=== PATIENT | female | born 1935 | race Caucasian/White ===

== ENCOUNTER 2017-05-20 18:02 | Emergency (ER) | payer MEDICARE, OTHER ==
[2015-08-04 14:11] VITALS: BMI 20.3
[~2017-05-20 18:02] MED LIST: HYDROCODON-ACE1 EAC7 PO; KEFLEX500 MG PO; LEVAQUIN500 MG PO; MEGACE40 MG PO; MULTI-DAY VITAM1 TAB PO; NORVASC2.5 MG PO; PROZAC10 MG PO; REGLAN INJ10 MG/2 ML IV; VITAMIN B-1000 MCG/M IM; VITAMIN B-121000 MCG PO; XARELTO15 MG PO; XARELTO20 MG PO
== END 2017-05-20 20:58 | disposition home or self-care (01) ==
LOC: D.ER 18:02
DX: M25.061 Hemarthrosis, right knee (principal); W19.XXXA Unspecified fall, initial encounter; Y93.9 Activity, unspecified; Y92.029 Unspecified place in mobile home as the place of occurrence of the external cause; Z85.3 Personal history of malignant neoplasm of breast; I10 Essential (primary) hypertension

== ENCOUNTER → 2017-06-14 08:14 | Outpatient (CLI) | payer MEDICARE, OTHER ==
[2015-08-04 14:11] VITALS: BMI 20.3
== END | disposition home or self-care (01) ==
LOC: D.RT 08:14
DX: R06.00 Dyspnea, unspecified (principal)

== ENCOUNTER → 2017-09-27 12:09 | Outpatient (CLI) | payer MEDICARE, OTHER ==
[2015-08-04 14:11] VITALS: BMI 20.3
--- NOTE | ~2017-09-27 | EC ---
PATIENT:JONATHAN EMANUEL DATE OF SERVICE: 09/27/17 SEX: F MEDICAL RECORD: [id number] DATE OF : 39 LOCATION:D.[facility] AGE OF PATIENT: 82 ADMISSION DATE: 09/27/17 REFERRING PHYSICIAN: INTERPRETING PHYSICIAN: DANIELLE DELATORRE MD ECHOCARDIOGRAM REPORT ECHO CHARGES 4 ECHO COMPLETE Date: 09/27 CLINICAL DIAGNOSIS: MTZ/CHF/MALIGNANT NEOPLASM OF BREAST ECHOCARDIOGRAPHIC MEASUREMENTS (adult normal given) AC root (d.<3.7cm) 2.8 cm LV Septum d (<1.2 cm> 1.0 cm Valve Excursion 1.1 cm LV Septum (systole) 1.4 cm Left Atria (s.<4.0cm> 3.2 cm LVPW d(<1.2cm) 1.1 cm RV (d.<2.3cm) 1.7 cm LVPW (sytole) 1.6 cm LV diastole(<5.6CM) 4.7 cm MV E-F(>70mm/sec) cm LV systole 2.7 cm LVOT Diameter 1.6 cm MV exc.(>10mm) cm Est.ejection fraction (50-75%) % DOPPLER: LVIT cm/sec A 138 cm/sec E 105 cm/sec LA cm/sec RVSP 33.0 mmHg LVOT 95.0 cm/sec AOP1/2T m/s Asc. Ao 132 cm/sec RVOT 70.0 cm/sec RA cm/sec PA 98.0 cm/sec AV Gradient Peak 7.0 mmHg AV Mean 3.3 mmHg AV Area 1.4 cm MV Gradient Peak 7.6 mmHg MV Mean 2.1 mmHg MV Area cm COMMENTS: Executive Sales Manager: Eli ALARCONOE Business Technology Analyst: Karo Delatorre TAPE# PACS Pericardial Effusion N DATE OF SERVICE: 09/27/2017 PROCEDURE: Transthoracic echocardiogram. FINDINGS: 1. Left ventricle shows evidence of left ventricular hypertrophy. Inflow characteristics consistent with diastolic dysfunction and ejection fraction of 55% to 60%. No evidence of regional wall motion abnormalities. 2. The mitral valve is thickened. No obvious structural abnormalities; however, the patient does have eccentric moderate mitral regurgitation. ECHOCARDIOGRAM REPORT [id number] JONATHAN EMANUEL 3. The left atrium is mildly dilated at 4.1 cm. 4. The right ventricle is normal. 5. The aortic valve shows sclerosis without any evidence of stenosis. 6. The tricuspid valve has mild tricuspid regurgitation. RVSP 33 mmHg. 7. The right ventricle is normal size, function. 8. The right atrium is normal size and function. IMPRESSION: Overall, the patient has evidence of hypertensive heart disease with mild pulmonary hypertension and diastolic dysfunction with preserved LV systolic function with ejection fraction of 55% to 60%. TRANSINT:[id number] Voice Confirmation ID: [id number] DOCUMENT ID: [id number] 10/03/2017 Edited for date of service, dm. DANIELLE DELATORRE MD at 1426 CC: [id number] DICTATION DATE: 09/28/17 0758 PSYCH RN: 09/28/17 0941 [facility] 09/27/[address] [address]
== END | disposition home or self-care (01) ==
LOC: D.ECHO 12:09
DX: C50.419 Malignant neoplasm of upper-outer quadrant of unspecified female breast (principal); I50.9 Heart failure, unspecified

== ENCOUNTER 2017-12-12 21:44 | Inpatient (IN) | payer MEDICARE, OTHER ==
[~2017-12-12] VITALS: Ht 160 cm; Wt 54.4 kg
--- NOTE | ~2017-12-12 | OP ---
PATIENT NAME: JONATHAN EMANUEL MEDICAL RECORD: [id number] :39 LOCATION:D[facility] ADMISSION DATE:12/13/17 SURGEON: SANDY GA MD DATE OF OPERATION: 12/13/2017 PREOPERATIVE DIAGNOSIS: Bimalleolar ankle fracture of the left ankle. POSTOPERATIVE DIAGNOSIS: Bimalleolar ankle fracture of the left ankle. PROCEDURE: Open reduction and internal fixation of left bimalleolar ankle fracture. SURGEON: Sandy Ga MD ANESTHESIA: General. INTRAOPERATIVE COMPLICATIONS: None. SUMMARY OF PATHOLOGIC FINDINGS: Essentially none. The patient had a bimalleolar ankle fracture with some comminution of the fibula as seen on preoperative radiographs. IMPLANTS USED: Planet [employer] VariAx fibular plate. OPERATIVE SUMMARY IN DETAIL: After obtaining the appropriate preoperative orthopedic surgery consent as well as anesthetic consultation, evaluation and clearance, the patient was taken to the operating room and placed on the operating table in supine position. After general laryngeal mask airway was administered, tourniquet was placed on the proximal aspect of left lower extremity. Left lower extremity was prepped and draped in routine sterile fashion. The leg was elevated and exsanguinated, tourniquet inflated to 350 mmHg. Incision was made over the fibula under fluoroscopic guidance, taken down the level of the fracture, which was cleaned of all fracture hematoma. It was reduced using fracture reduction clamps, provisional 0.062 K-wire was put into place, all in place. The plate was then put on the lateral aspect of the fibula. A combination of compression and locking screws were utilized for serial drill to stabilize the lateral fibula fracture. Having completed this, attention was turned to the medial side. A small incision was made over the medial malleolus. This was taken down so that all interposed periosteum and hematoma could be evacuated. It was then reduced with a knxxp-an-rjcem reduction clamp. Guidewires for the 4.0 Fixos compression screws were then placed under fluoroscopic guidance and then two 46 screws were then placed for good compression of the medial malleolus. Final radiographs were taken and submitted for radiologist review. Wounds were copiously irrigated and closed with 2-0 Vicryl followed by skin radha. Sterile dressings were applied. Tourniquet was deflated. Posterior L&U splint was applied. The patient was awakened and taken to recovery room in stable condition. All final needle and sponge counts were correct. TRANSINT:[id number] Voice Confirmation ID: [id number] DOCUMENT ID: [id number] OPERATIVE REPORT [id number] JONATHAN EMANUEL MD, SANDY ROMAN at 1331 CC: [id number] DICTATION DATE: 12/14/1735 GUARD MANAGER: 12/14/17 1042 [place] [address]
[2017-12-12 23:13] LABS: APTT 22.2 SECONDS (22.8-39.4); PROTIME 12.8 SECONDS (11.6-15.0)
[2017-12-12 23:14] LABS: ALBUMIN 3.7 g/dL (3.4-5.0); ANION GAP 20.2 mmol/L (8-16); BILIRUBIN - TOTAL 0.36 mg/dL (0.2-1.3); CALCIUM 9.3 mg/dL (8.5-10.1); CARBON DIOXIDE 19.1 mmol/L (21.0-32.0); POTASSIUM - SERUM 3.3 mmol/L (3.5-5.1); PROTEIN - SERUM 7.3 g/dL (6.4-8.2)
[2017-12-13] VITALS (14 sets, daily range): BP systolic 104–143; BP diastolic 50–72; Ht 160 cm; Wt 54.4 kg
[2017-12-13 00:09] LABS: HEMATOCRIT 35.1 % (36.0-48.0); HEMOGLOBIN 11.9 g/dL (12-16); LYMPHOCYTES 13.1 % (15-50); MCH 30.1 pg (26.0-34.0); MCHC 33.9 g/dL (31.0-37.0); MCV 88.9 fL (80.0-100.0); MEAN PLATELET VOLUME 9.3 fL (7.4-10.4); NEUTROPHILS 81.4 % (40-80); PLATELET COUNT 276 10x3/uL (130-400); RBC 3.95 10x6/uL (4.00-5.40); RDW 13.2 % (11.5-14.5); WBC 11.8 10x3/uL (4.8-10.8)
[2017-12-13 10:48] LABS: BASOPHILS 0.5 % (0-2); EOSINOPHILS 0.2 % (0-7); HEMATOCRIT 33.6 % (36.0-48.0); HEMOGLOBIN 11.1 g/dL (12-16); IMMATURE GRANULOCYTES 0.1 % (0-5); LYMPHOCYTES 19.5 % (15-50); MCH 30.2 pg (26.0-34.0); MEAN PLATELET VOLUME 9.5 fL (7.4-10.4); MONOCYTES 8.8 % (2-11); NEUTROPHILS 70.9 % (40-80); PLATELET COUNT 243 10x3/uL (130-400); RBC 3.67 10x6/uL (4.00-5.40); RDW 14.1 % (11.5-14.5); WBC 8.9 10x3/uL (4.8-10.8)
[2017-12-13 10:59] LABS: MCV 91.6 fL (80.0-100.0)
[2017-12-14 04:53] LABS: BASOPHILS 0.1 % (0-2); EOSINOPHILS 0 % (0-7); HEMOGLOBIN 11.2 g/dL (12-16); IMMATURE GRANULOCYTES 0.1 % (0-5); LYMPHOCYTES 20.2 % (15-50); MCH 31.1 pg (26.0-34.0); MCHC 33.9 g/dL (31.0-37.0); MCV 91.7 fL (80.0-100.0); MEAN PLATELET VOLUME 9.6 fL (7.4-10.4); MONOCYTES 9.8 % (2-11); NEUTROPHILS 69.8 % (40-80); PLATELET COUNT 232 10x3/uL (130-400); RDW 14.2 % (11.5-14.5)
[2017-12-14 04:55] VITALS: BP 158/63
[2017-12-14 05:08] LABS: WBC 11.2 10x3/uL (4.8-10.8)
[2017-12-14 05:17] LABS: ALBUMIN 3.2 g/dL (3.4-5.0); ANION GAP 18.4 mmol/L (8-16); BILIRUBIN - TOTAL 0.6 mg/dL (0.2-1.3); CALCIUM 8.7 mg/dL (8.5-10.1); CARBON DIOXIDE 19.2 mmol/L (21.0-32.0); POTASSIUM - SERUM 3.6 mmol/L (3.5-5.1); PROTEIN - SERUM 6.7 g/dL (6.4-8.2)
[2017-12-14 07:58] VITALS: BP 137/66
[2017-12-14 12:21] VITALS: BP 139/63
[2017-12-14 15:55] VITALS: BP 143/59
[2017-12-14 20:00] VITALS: BP 146/72
[2017-12-15] VITALS (7 sets, daily range): BP systolic 114–144; BP diastolic 41–92
[2017-12-15 04:59] LABS: BASOPHILS 0.2 % (0-2); EOSINOPHILS 0.9 % (0-7); HEMATOCRIT 32.3 % (36.0-48.0); HEMOGLOBIN 10.5 g/dL (12-16); IMMATURE GRANULOCYTES 0.1 % (0-5); LYMPHOCYTES 16.8 % (15-50); MCH 29.7 pg (26.0-34.0); MCHC 32.5 g/dL (31.0-37.0); MCV 91.5 fL (80.0-100.0); MEAN PLATELET VOLUME 9.5 fL (7.4-10.4); MONOCYTES 9.4 % (2-11); NEUTROPHILS 72.6 % (40-80); PLATELET COUNT 215 10x3/uL (130-400); RBC 3.53 10x6/uL (4.00-5.40); RDW 14.1 % (11.5-14.5); WBC 8.6 10x3/uL (4.8-10.8)
[2017-12-15 05:33] LABS: ANION GAP 14.4 mmol/L (8-16); BILIRUBIN - TOTAL 0.4 mg/dL (0.2-1.3); CALCIUM 8.6 mg/dL (8.5-10.1); CREATININE - SERUM 0.8 mg/dL (0.6-1.3); POTASSIUM - SERUM 3.4 mmol/L (3.5-5.1); PROTEIN - SERUM 6.6 g/dL (6.4-8.2)
[2017-12-16 04:07] VITALS: BP 125/53
[2017-12-16 05:18] LABS: BASOPHILS 0.1 % (0-2); EOSINOPHILS 2.1 % (0-7); HEMATOCRIT 31.7 % (36.0-48.0); HEMOGLOBIN 10.6 g/dL (12-16); IMMATURE GRANULOCYTES 0.1 % (0-5); LYMPHOCYTES 24.6 % (15-50); MCH 30.1 pg (26.0-34.0); MCHC 33.4 g/dL (31.0-37.0); MCV 90.1 fL (80.0-100.0); MEAN PLATELET VOLUME 9.6 fL (7.4-10.4); MONOCYTES 7.9 % (2-11); NEUTROPHILS 65.2 % (40-80); PLATELET COUNT 234 10x3/uL (130-400); RBC 3.52 10x6/uL (4.00-5.40); RDW 13.8 % (11.5-14.5); WBC 7.6 10x3/uL (4.8-10.8)
[2017-12-16 05:32] LABS: ALBUMIN 2.9 g/dL (3.4-5.0); ANION GAP 16.1 mmol/L (8-16); BILIRUBIN - TOTAL 0.35 mg/dL (0.2-1.3); CALCIUM 9.2 mg/dL (8.5-10.1); CARBON DIOXIDE 22.4 mmol/L (21.0-32.0); CREATININE - SERUM 0.9 mg/dL (0.6-1.3); POTASSIUM - SERUM 3.5 mmol/L (3.5-5.1); PROTEIN - SERUM 6.6 g/dL (6.4-8.2)
[2017-12-16 08:07] VITALS: BP 122/55
[2017-12-16] MEDS ORDERED: HYDROCODONE-APA1 TAB PO (08:55)
== END 2017-12-16 16:04 | DRG 493 ==
LOC: D.ER 21:44 → D.MS 12-13 00:03
PROVIDERS: Emergency Medicine; Orthopaedic Surgery
PROC: 0QSJ0ZZ Reposition Right Fibula, Open Approach (ICD-10-PCS; 2017-12-13)
PROC: 0QSG0ZZ Reposition Right Tibia, Open Approach (ICD-10-PCS; principal; 2017-12-13 12:00)
DX: S82.841A Displaced bimalleolar fracture of right lower leg, initial encounter for closed fracture (principal); N39.0 Urinary tract infection, site not specified; W01.10XA Fall on same level from slipping, tripping and stumbling with subsequent striking against unspecified object, initial encounter; D64.81 Anemia due to antineoplastic chemotherapy; I10 Essential (primary) hypertension; Z86.711 Personal history of pulmonary embolism; J44.9 Chronic obstructive pulmonary disease, unspecified; C50.919 Malignant neoplasm of unspecified site of unspecified female breast

== ENCOUNTER 2018-04-27 14:06 | Emergency (ER) | payer MEDICARE, OTHER ==
[~2018-04-27] VITALS: Ht 160 cm; Wt 53.6 kg
[~2018-04-27 14:06] MED LIST changes: +HYDROCODONE-APA1 TAB PO
[2018-04-27 14:09] VITALS: BP 186/72; Ht 160 cm; Wt 53.6 kg
[2018-04-27 15:13] LABS: BASOPHILS 0.4 % (0-2); EOSINOPHILS 0.6 % (0-7); HEMATOCRIT 38.6 % (36.0-48.0); IMMATURE GRANULOCYTES 0.2 % (0-5); LYMPHOCYTES 23.9 % (15-50); MCH 30.6 pg (26.0-34.0); MCHC 33.7 g/dL (31.0-37.0); MCV 90.8 fL (80.0-100.0); MONOCYTES 5.9 % (2-11); PLATELET COUNT 276 10x3/uL (130-400); RBC 4.25 10x6/uL (4.00-5.40); RDW 13.9 % (11.5-14.5)
[2018-04-27 15:20] LABS: ALBUMIN 3.8 g/dL (3.4-5.0); ANION GAP 24.6 mmol/L (8-16); BILIRUBIN - TOTAL 0.84 mg/dL (0.2-1.3); CALCIUM 9.5 mg/dL (8.5-10.1); CARBON DIOXIDE 14.9 mmol/L (21.0-32.0); CREATININE - SERUM 1.1 mg/dL (0.6-1.3); POTASSIUM - SERUM 3.5 mmol/L (3.5-5.1); PROTEIN - SERUM 7.6 g/dL (6.4-8.2)
[2018-04-27 15:23] LABS: TROPONIN-I 0.022 ng/mL (0.000-0.060)
== END 2018-04-27 16:45 ==
LOC: D.ER 14:06
PROVIDERS: Family Medicine
DX: R06.02 Shortness of breath (principal); F41.9 Anxiety disorder, unspecified; Z85.3 Personal history of malignant neoplasm of breast; J44.9 Chronic obstructive pulmonary disease, unspecified; Z86.711 Personal history of pulmonary embolism; I10 Essential (primary) hypertension

== ENCOUNTER 2018-06-01 10:29 | Emergency (ER) | payer MEDICARE, OTHER ==
[~2018-06-01] VITALS: Ht 160 cm; Wt 45.5 kg
[2018-06-01 10:31] VITALS: Ht 160 cm; Wt 45.5 kg
[2018-06-01 11:30] VITALS: BP 162/70
== END 2018-06-01 18:44 | disposition home or self-care (01) ==
LOC: D.ER 10:29
DX: M54.6 Pain in thoracic spine (principal); M48.56XA Collapsed vertebra, not elsewhere classified, lumbar region, initial encounter for fracture; I10 Essential (primary) hypertension; J44.9 Chronic obstructive pulmonary disease, unspecified; Z85.3 Personal history of malignant neoplasm of breast

== ENCOUNTER 2018-06-13 10:25 | Inpatient (IN) | payer MEDICARE, OTHER ==
[~2018-06-13] VITALS: Ht 160 cm; Wt 50.0 kg
[2018-06-13 11:54] LABS: BASOPHILS 0.3 % (0-2); EOSINOPHILS 0.2 % (0-7); HEMATOCRIT 40.3 % (36.0-48.0); HEMOGLOBIN 13.1 g/dL (12-16); IMMATURE GRANULOCYTES 0.4 % (0-5); LYMPHOCYTES 14.2 % (15-50); MCH 30.4 pg (26.0-34.0); MCHC 32.5 g/dL (31.0-37.0); MCV 93.5 fL (80.0-100.0); MEAN PLATELET VOLUME 9.2 fL (7.4-10.4); MONOCYTES 7.4 % (2-11); NEUTROPHILS 77.5 % (40-80); PLATELET COUNT 283 10x3/uL (130-400); RBC 4.31 10x6/uL (4.00-5.40); RDW 13.6 % (11.5-14.5); WBC 9.8 10x3/uL (4.8-10.8)
[2018-06-13 11:58] LABS: APPEARANCE CLEAR (CLEAR); BILIRUBIN NEGATIVE (NEGATIVE); COLOR YELLOW (YELLOW); EPITHELIAL CELLS 0-5 /hpf (0-5); GLUCOSE NEGATIVE (NEGATIVE); KETONE NEGATIVE (NEGATIVE); NITRITE NEGATIVE (NEGATIVE); PROTEIN TRACE mg/dL (NEGATIVE); RED CELLS - URINE 0-5 /hpf (0-5); UROBILINOGEN NORMAL (NORMAL); WHITE CELLS - URINE 0-5 /hpf (0-5)
[2018-06-13 12:15] LABS: ALBUMIN 3.5 g/dL (3.4-5.0); ANION GAP 17.5 mmol/L (8-16); BILIRUBIN - TOTAL 0.42 mg/dL (0.2-1.3); CALCIUM 8.7 mg/dL (8.5-10.1); CARBON DIOXIDE 20.3 mmol/L (21.0-32.0); CREATININE - SERUM 0.9 mg/dL (0.6-1.3); POTASSIUM - SERUM 3.8 mmol/L (3.5-5.1); PROTEIN - SERUM 7.5 g/dL (6.4-8.2)
[2018-06-13 15:00] VITALS: BP 138/76
[2018-06-13 16:50] VITALS: BP 135/73
[2018-06-13 17:00] VITALS: BP 135/73; BMI 22.7
--- NOTE | 2018-06-13 19:39 | NUR ---
PT LAYING IN BED RESTING. CONFUSED. BOX ALARM ON. NON SKID SOCKS ON. L AC WITH LACTATED RINGERS @ 100 CC/HOUR. ROOM AIR. DENIES PAIN AT THIS TIME. NO EDEMA NOTED. NO FURTHER CONCERNS AT THIS TIME. BED LOWERED AND LOCKED. CL IN REACH. WILL CONTINUE TO MONITOR.
[2018-06-13 20:24] VITALS: BP 133/64
[2018-06-14 00:58] VITALS: BP 125/61
[2018-06-14 04:00] VITALS: BP 114/50
--- NOTE | 2018-06-14 05:19 | NUR ---
PT IV OUT AND ON FLOOR. WILL RESITE ONE.
--- NOTE | 2018-06-14 05:36 | NUR ---
PT ASLEEP. RESP EVEN AND UNLABORED. BEDLOW AND CALL LIGHT IN REACH. BEDALARM ATTACHED ON AND ACTIVE. PT HAS NO S/S OF DISTRESS. WILL CPOC
[2018-06-14 05:47] LABS: BASOPHILS 1.1 % (0-2); EOSINOPHILS 2.3 % (0-7); HEMATOCRIT 37.9 % (36.0-48.0); HEMOGLOBIN 12.3 g/dL (12-16); IMMATURE GRANULOCYTES 0.2 % (0-5); LYMPHOCYTES 27.6 % (15-50); MCH 30.1 pg (26.0-34.0); MCHC 32.5 g/dL (31.0-37.0); MCV 92.9 fL (80.0-100.0); MEAN PLATELET VOLUME 9.2 fL (7.4-10.4); MONOCYTES 8.4 % (2-11); NEUTROPHILS 60.4 % (40-80); PLATELET COUNT 294 10x3/uL (130-400); RBC 4.08 10x6/uL (4.00-5.40); RDW 13.7 % (11.5-14.5)
[2018-06-14 05:56] LABS: WBC 5.3 10x3/uL (4.8-10.8)
[2018-06-14 06:42] LABS: ALBUMIN 3.1 g/dL (3.4-5.0); ANION GAP 15.1 mmol/L (8-16); BILIRUBIN - TOTAL 0.49 mg/dL (0.2-1.3); CARBON DIOXIDE 22.1 mmol/L (21.0-32.0); CREATININE - SERUM 0.8 mg/dL (0.6-1.3); MAGNESIUM - SERUM 2.1 mg/dL (1.8-2.4); PROTEIN - SERUM 6.7 g/dL (6.4-8.2)
[2018-06-14 06:45] LABS: POTASSIUM - SERUM 3.2 mmol/L (3.5-5.1)
--- NOTE | 2018-06-14 07:20 | NUR ---
ASSESSMENT COMPLETE. NO IV ACCESS. PULLED OUT BY PATIENT THIS AM. DISORIENTED TO TIME,PLACE AND SITUATION. US ADMINISTRATIVE LAW JUDGE SHOWING SR 95 PER TECH. ABRASIONS NOTED TO LEFT ELBOW. ORUTSARARMIUT. BOX ALARM IN USE. SPEECH DIFFICULT TO UNDERSTAND.
[2018-06-14 08:15] VITALS: BP 137/54
--- NOTE | 2018-06-14 11:01 | NUR ---
REHAB PRESCREENING Rehab referral received and chart reviewed. PT, OT and ST evaluations have been ordered. Rehab will follow for continued work up and evaluations in order to assess admission criteria. Thank you for this referral! Kamala Pepe, HANGER OFF Rehab Building Services Engineer
[2018-06-14 11:31] VITALS: BP 123/65
--- NOTE | 2018-06-14 12:00 | NUR ---
NO CHANGES NOTED. LADY MAT ALARM IN USE.
[2018-06-14 12:53] VITALS: Ht 160 cm; Wt 50.0 kg
[2018-06-14 17:02] VITALS: BP 136/59
--- NOTE | 2018-06-14 17:11 | NUR ---
NO CHANGES NOTED AT THIS TIME.
--- NOTE | 2018-06-14 18:36 | NUR ---
OT NOTE: PT REQUIRED MIN A TO SIT AT EOB SECONDARY TO DECREASED VISION. PT REQUIRED MIN A FOR BED MOB TASKS. PT COMPLETED ORAL HYGIENE TASK WITH MIN A. THANK YOU, BRIAN MAC
--- NOTE | 2018-06-14 21:36 | NUR ---
PT LAYING IN BED RESTING. C/O PAIN IN BACK. TYLENOL GIVEN. PT CONFUSED TO PLACE TIME AND SITUATION. LADY MAT ON. NORMAL SINUS ON TELE. NO IV ACCESS AT THIS TIME. ROOM AIR. HARD OF HEARING. ABRASSIONS NOTED TO ELBOWS. SR UP X 3. NON SKID SOCKS ON. YELLOW GOWN. BED LOWERED AND LOCKED. CL IN REACH. WILL CONTINUE TO MONITOR.
--- NOTE | 2018-06-14 22:30 | NUR ---
PT C/O BACK PAIN. CALLED CANDY DECORATOR PARTRIDGE FARMER. MARCK GALVIN ASKED WHAT PT TAKES AT HOME FOR PAIN. AT HOME TAKES NORCO 10 Q 4 HOURS PRN. ORDERS GIVEN FOR NORCO 5 Q 4 HOURS PRN FOR PAIN. NO FURTHER ORDERS AT THIS TIME.
--- NOTE | 2018-06-14 23:00 | NUR ---
NORCO GIVEN FOR BACK/NECK PAIN. PT NOW RESTING COMFORTABLY. NON SKID SOCKS ON, YELLOW GOWN ON, LADY MAT ON. SIDE RAILS UP X 3. BED LOWERED AND LOCKED. CL IN REACH. NO FURTHER CONCERNS AT THIS TIME.
--- NOTE | 2018-06-15 03:40 | NUR ---
ASSESSE, PT IS ASLEEP AFTER RECEIVING PAIN MED FOR HER BACK. SHE HAS EASY RESPIRATIONS AND NO DISTRESS NOTED.
[2018-06-15 04:24] LABS: BASOPHILS 0.7 % (0-2); EOSINOPHILS 1.8 % (0-7); HEMOGLOBIN 12.3 g/dL (12-16); IMMATURE GRANULOCYTES 0.2 % (0-5); LYMPHOCYTES 37.3 % (15-50); MCH 30.2 pg (26.0-34.0); MCHC 33.2 g/dL (31.0-37.0); MEAN PLATELET VOLUME 9.3 fL (7.4-10.4); MONOCYTES 10.7 % (2-11); NEUTROPHILS 49.3 % (40-80); PLATELET COUNT 300 10x3/uL (130-400); RBC 4.07 10x6/uL (4.00-5.40); RDW 13.6 % (11.5-14.5); WBC 5.4 10x3/uL (4.8-10.8)
[2018-06-15 04:30] LABS: MCV 90.9 fL (80.0-100.0)
[2018-06-15 04:45] LABS: ALBUMIN 3.1 g/dL (3.4-5.0); ANION GAP 19.1 mmol/L (8-16); BILIRUBIN - TOTAL 0.49 mg/dL (0.2-1.3); CALCIUM 8.5 mg/dL (8.5-10.1); CARBON DIOXIDE 18.3 mmol/L (21.0-32.0); MAGNESIUM - SERUM 2.1 mg/dL (1.8-2.4); POTASSIUM - SERUM 3.4 mmol/L (3.5-5.1); PROTEIN - SERUM 6.8 g/dL (6.4-8.2)
--- NOTE | 2018-06-15 05:12 | NUR ---
PT K+ 3.4, 40 MEQ KDUR GIVEN PER ELECTROLYTE PROTOCOL RECHECK SCHEDULED FOR 929
[2018-06-15 07:51] VITALS: BP 143/73
--- NOTE | 2018-06-15 08:02 | NUR ---
ROUNDING DONE WITH PATIENT CONFUSED, ASKING FOR PAIN MEDICATION. NORCO GIVEN PAST CRUSHING AND MIXING IN APPLESAUCE. MISSING SOME BOTTOM TEETH. NO IV ACCESS SEEN. ON ROOM AIR. LADY MAT ALARM ON AND IN USE. SR UP X 3. ON EP, K+ 3.4. SUPPLEMENTS WERE GIVEN.
--- NOTE | 2018-06-15 09:55 | NUR ---
K+ RE-CHECK WITH RESULTS OF 4.3.
--- NOTE | 2018-06-15 10:39 | NUR ---
Rehab visited with the patient this AM re the refferal for ARU. She was sleeping, but awoke when her name was called several times. She could not tell me the date or where she was. she said she lived alone and took care of herself. If this is true APS needs to be notified. She is very frail and confused. She does not qualify for the ARU as we are a short stay with hopes to discharge to home. Recommend a LTC facility for her. Dulce Maria Carrera RN Clinical Liaison, Rehab
--- NOTE | 2018-06-15 10:44 | NUR ---
UNABLE TO RECONCILIATE MEDICAION LIST ROBYN DOES NOT KNOW WHAT SHE TAKES.
[2018-06-15 11:32] VITALS: BP 124/46
--- NOTE | 2018-06-15 13:52 | NUR ---
COMPLETE BED BATH AND LINEN CHANGE DONE. PATIENT IS VERY ANXIOUS.
--- NOTE | 2018-06-15 14:51 | NUR ---
OT NOTE: PT REMAINS CONFUSED; BED MOBILITY IMPROVED TO MIN/CGA. MOD VC AND MIN ASSIST TO MARE GOWN. ABLEA TO AMB IN ROOM WITH MIN ASSSIST AND USE OF RW. JORDAN HARRIS, OTR/L
--- NOTE | 2018-06-15 16:20 | NUR ---
OT NOTE: PT IS CONFUSED. PT COMPLETED BED MOB WITH CGA. PT COMPLETED ADL MOBILITY WITH CGA. THANK YOU, BRIAN MAC
--- NOTE | 2018-06-15 18:37 | NUR ---
LADY MAT ALARM ON AND IN USE.
--- NOTE | 2018-06-15 19:10 | NUR ---
THE PATIENT WAS AWAKE AND SPEAKING TO STAFF WHEN STAFF ENTERED THE PATIENTS ROOM. THE PATIENT IS PLESENTLY CONFUSED. BED IS IN THE LOW POSITION WITH SIDERAILS UP X3 AND THE CALL LIGHT WITHIN REACH. THE PATIENT WAS EDUCATED TO CALL THE NURSE WITH ANY QUESTIONS OR CONCERNS. THE PATIENT STATED UNDERSTANDING.
[2018-06-15 20:00] VITALS: BP 128/53
--- NOTE | 2018-06-15 22:44 | NUR ---
THE PATIENT COMPLAINED OF BACK PAIN. MEDICATION PROVIDED.
[2018-06-16 05:41] VITALS: BP 123/57
[2018-06-16 05:44] LABS: BASOPHILS 1.2 % (0-2); EOSINOPHILS 3.8 % (0-7); HEMATOCRIT 38.1 % (36.0-48.0); HEMOGLOBIN 12.1 g/dL (12-16); IMMATURE GRANULOCYTES 0.6 % (0-5); LYMPHOCYTES 32.7 % (15-50); MCH 29.9 pg (26.0-34.0); MCHC 31.8 g/dL (31.0-37.0); MEAN PLATELET VOLUME 9.3 fL (7.4-10.4); MONOCYTES 8.2 % (2-11); NEUTROPHILS 53.5 % (40-80); PLATELET COUNT 323 10x3/uL (130-400); RBC 4.05 10x6/uL (4.00-5.40); RDW 13.8 % (11.5-14.5)
[2018-06-16 05:48] LABS: MCV 94.1 fL (80.0-100.0)
[2018-06-16 06:08] LABS: ALBUMIN 3.1 g/dL (3.4-5.0); BILIRUBIN - TOTAL 0.29 mg/dL (0.2-1.3); CALCIUM 8.3 mg/dL (8.5-10.1); CARBON DIOXIDE 20.1 mmol/L (21.0-32.0); MAGNESIUM - SERUM 2.1 mg/dL (1.8-2.4); POTASSIUM - SERUM 4.1 mmol/L (3.5-5.1); PROTEIN - SERUM 6.8 g/dL (6.4-8.2)
--- NOTE | 2018-06-16 07:35 | NUR ---
ASSESSMENT COMPLETE. NO IV ACCESS. BRUISING NOTED TO FOREHEAD. ABRASIONS NOTED TO LEFT ELBOW. PLAY WRITER SHOWING SR 100 PER TECH. LADY MAT IN USE. DISORIENTED TO TIME,PLACE AND SITUATION.
[2018-06-16 08:18] VITALS: BP 138/66
--- NOTE | 2018-06-16 12:00 | NUR ---
NO CHANGES NOTED AT THIS TIME.
[2018-06-16 12:12] VITALS: BP 108/41
--- NOTE | 2018-06-16 16:20 | NUR ---
NORCO GIVEN FOR COMPLAINT OF BACK PAIN.
[2018-06-16 16:27] VITALS: BP 118/602
[2018-06-16 19:30] VITALS: BP 129/58
--- NOTE | 2018-06-16 19:30 | NUR ---
PATIENT RESTING IN BED WITH EYES CLOSED AND NO S/S OF DISTRESS. BED IN LOWEST POSITION AND CALL LIGHT WITHIN REACH.
[2018-06-16 23:55] VITALS: BP 112/63
[2018-06-17 04:15] VITALS: BP 121/55
[2018-06-17 07:04] LABS: BASOPHILS 1.6 % (0-2); HEMATOCRIT 37.6 % (36.0-48.0); HEMOGLOBIN 11.9 g/dL (12-16); IMMATURE GRANULOCYTES 0.4 % (0-5); LYMPHOCYTES 42.2 % (15-50); MCH 30.1 pg (26.0-34.0); MCHC 31.6 g/dL (31.0-37.0); MCV 95.2 fL (80.0-100.0); MEAN PLATELET VOLUME 9.2 fL (7.4-10.4); MONOCYTES 6.8 % (2-11); PLATELET COUNT 300 10x3/uL (130-400); RBC 3.95 10x6/uL (4.00-5.40)
[2018-06-17 07:09] LABS: ALBUMIN 2.9 g/dL (3.4-5.0); ANION GAP 16.8 mmol/L (8-16); BILIRUBIN - TOTAL 0.24 mg/dL (0.2-1.3); CALCIUM 8.5 mg/dL (8.5-10.1); CARBON DIOXIDE 19.4 mmol/L (21.0-32.0); CREATININE - SERUM 0.9 mg/dL (0.6-1.3); MAGNESIUM - SERUM 2.3 mg/dL (1.8-2.4); POTASSIUM - SERUM 4.2 mmol/L (3.5-5.1); PROTEIN - SERUM 6.5 g/dL (6.4-8.2)
--- NOTE | 2018-06-17 07:35 | NUR ---
ASSESSMENT COMPLETE. NO IV ACCESS. DISORIENTED TO TIME,PLACE AND SITUATION. IT PROGRAMMER ANALYST SHOWING SR 94 PER TECH. LADY MAT IN USE. ABRASIONS NOTED TO LEFT ELBOW AND BRUISING NOTED TO FOREHEAD. [place].
[2018-06-17 08:11] VITALS: BP 114/61
--- NOTE | 2018-06-17 11:41 | NUR ---
RESTING QUIETLY IN BED ON LEFT SIDE. RESP EVEN,NONLABORED.
[2018-06-17 12:00] VITALS: BP 125/56
[2018-06-17 16:00] VITALS: BP 119/57
--- NOTE | 2018-06-17 16:38 | NUR ---
NORCO GIVEN FOR COMPLAINT FOR BACK PAIN.
--- NOTE | 2018-06-17 21:20 | NUR ---
ASSISTED PATIENT TO AND FROM THE RESTROOM. PATIENT DENIES OTHER NEEDS AT THIS TIME. BED IN LOWEST POSITION AND CALL LIGHT WITHIN REACH. BED ALARM ON. ENCOURAGED THE PATIENT TO CALL IF SHE HAS NEEDS. WILL CONTINUE TO MONITOR.
[2018-06-17 21:47] VITALS: BP 139/71
--- NOTE | 2018-06-17 22:06 | NUR ---
ADMINISTERED NORCO PER ORDERS. PATIENT DENIES OTHER NEEDS AT THIS TIME. BED IN LOWEST POSITION AND CALL LIGHT WITHIN REACH. BED ALARM ON. ENCOURAGED THE PATIENT TO CALL IF SHE HAS NEEDS. WILL CONTINUE TO MONITOR.
[2018-06-18 01:51] VITALS: BP 107/69
[2018-06-18 05:27] LABS: BASOPHILS 0.8 % (0-2); EOSINOPHILS 3.5 % (0-7); HEMATOCRIT 37.6 % (36.0-48.0); HEMOGLOBIN 12.2 g/dL (12-16); IMMATURE GRANULOCYTES 0.3 % (0-5); LYMPHOCYTES 31.8 % (15-50); MCH 30.3 pg (26.0-34.0); MCHC 32.4 g/dL (31.0-37.0); MCV 93.3 fL (80.0-100.0); MEAN PLATELET VOLUME 9.2 fL (7.4-10.4); MONOCYTES 7.8 % (2-11); NEUTROPHILS 55.8 % (40-80); PLATELET COUNT 322 10x3/uL (130-400); RBC 4.03 10x6/uL (4.00-5.40); RDW 13.5 % (11.5-14.5); WBC 6.3 10x3/uL (4.8-10.8)
[2018-06-18 05:47] LABS: ALBUMIN 3.1 g/dL (3.4-5.0); ANION GAP 17.3 mmol/L (8-16); BILIRUBIN - TOTAL 0.25 mg/dL (0.2-1.3); CALCIUM 8.7 mg/dL (8.5-10.1); CARBON DIOXIDE 21.5 mmol/L (21.0-32.0); MAGNESIUM - SERUM 2.3 mg/dL (1.8-2.4); POTASSIUM - SERUM 3.8 mmol/L (3.5-5.1); PROTEIN - SERUM 6.7 g/dL (6.4-8.2)
[2018-06-18 06:48] VITALS: BP 115/62
[2018-06-18 08:14] VITALS: BP 115/58
--- NOTE | 2018-06-18 10:39 | NUR ---
PT RESTING IN BED. NO SIGNS OF DISTRESS. CURRENTLY HAS NO IV IN. IS CONFUSED TO PERSON PLAVE AND TIME. BED ALARM ON. ON TELEMETRY 83 SR. HAS BRUSING TO FORHEAD, ABRASIONS TO LEFT ELBOW. COMPLAINS OF PAIN. MEDS GIVEN. DENIES ANY FUTHER NEED AT THIS TIME. CALL LIGHT IN REACH. NO FAMILY AT BEDSIDE.
[2018-06-18 11:28] VITALS: BP 119/54
--- NOTE | 2018-06-18 11:28 | NUR ---
RN ROUNDING DONE WITH PATIENT SITTING IN CHAIR WITH LADY MAT ALARM IN USE. WEARS GLASSES. CONFUSED.
--- NOTE | 2018-06-18 13:28 | NUR ---
OT NOTE: PT EXTREMELY LETHARGIC. DIFFICULTY STAYING AWAKE. ATTEMPTED TO ASSIST FEEDING BUT PT STATED "NOT NOW"..TOO SLEEPY TO SIT UP ON EDGE OF BED. WILL ATTEMPT LATER IN PM JORDAN HARRIS OTR/L
[2018-06-18 15:31] VITALS: BP 98/49
--- NOTE | 2018-06-18 19:11 | MORECARE ---
CASE MANAGEMENT DISCHARGE SUMMARY PATIENT: MATHEW EMANUEL UNIT: [id number] ADM DATE: 06/17/18 AGE: 82 : 37 SEX: F ROOM/BED: D.1208 AUTHOR: JOSELYN,DOC PHYSICIAN: REFERRING PHYSICIAN: RUBY COLLINS MD DATE OF SERVICE: 06/18/18 Discharge Plan Patient Name: MATHEW [facility]MANUEL [facility] [facility] 1935 Planned Disposition: Detention Facility Anticipated Discharge Date: Discharge Date: Expected LOS: Initial Reviewer: [email or web address] Initial Review Date: 06/13/2018 Generated: 06/18/18 8:11 pm Comments DCP- Discharge Planning Updated by [email or web address]: Kelly Faye on 06/18/18 5:[address] PATIENT CANNOT PARTICIPATE IN DISCHARGE PLANNING. OT ATTEMPTED TO TREAT TODAY WITHOUT SUCCESS SHE WAS TOO LETHARGIC. PATIENT HAD AMBULATED 130 FT W/ 30% ASSIST. SHE IS BARELY RESPONDING AT THIS TIME. ?? REPEAT CAT OF THE HEAD ?? TC TO GURU PAIGE THE SISTER TO THE PATIENT TO DISCUSS DISCHARGE. PATIENT NOTED TO LIVE IN THE [facility]. CM TO FOLLOW UP IN THE AM. Patient Name: MATHEW EMANUEL Page [phone] at 1910 All edits/amendments must be made on the electronic document DICTATION DATE: 06/18/181910 SNAP ATTACHER: JABIER 06/18/181910 RPT#: [id number] DC DATE: STATUS: ADM IN [facility] [address] [place] [address] END OF REPORT
--- NOTE | 2018-06-18 19:18 | MORECARE ---
CASE MANAGEMENT DISCHARGE SUMMARY PATIENT: MATHEW EMANUEL UNIT: [id number] ADM DATE: 06/17/18 AGE: 82 : 37 SEX: F ROOM/BED: D.1208 AUTHOR: RONAL ALVES PHYSICIAN: REFERRING PHYSICIAN: RUBY COLLINS MD DATE OF SERVICE: 06/18/18 Discharge Plan Patient Name: MTAHEW EMANUEL Facility: [facility] : 1935 Planned Disposition: Snf Facility Anticipated Discharge Date: Discharge Date: Expected LOS: Initial Reviewer: [email or web address] Initial Review Date: 06/13/2018 Generated: 06/18/18 8:18 pm Comments DCP- Discharge Planning Updated by [email or web address]: Kelly Faye on 06/18/18 6:[address] CM REVISITED THIS AM. THE PATIENT IS MORE AWAKE BUT VERY SHORT OF BREATH. SHE STATES SHE HAS BEEN TO A REHAB [facility] [place] ??? . SHE COULD NOT REMEBER. PERHAPS [facility]. SHE WILL CONSIDER SKILLED STAY AGAIN. SHE GAVE PERMISSION TO SPEAK WITH HER SISTER ,GURU. SHE STATES GURU IS A TWIN. THE TWIN SISTERS LIVE TOGETHER BUT SHE LIVES ALONE. GURU'S ADDRESS IS LISTED THE SAME THE PATIENT. PREVIOUSLY STATED A MESSAGE WAS LEFT. CM AWAITING CB. DCP- Discharge Planning Updated by [id number]: Kelly Faye on 06/18/18 5:[address] PATIENT CANNOT PARTICIPATE IN DISCHARGE PLANNING. OT ATTEMPTED TO TREAT TODAY WITHOUT SUCCESS SHE WAS TOO LETHARGIC. PATIENT HAD AMBULATED 130 FT W/ 30% ASSIST. SHE IS BARELY RESPONDING AT THIS TIME. ?? REPEAT CAT OF THE HEAD ?? TC TO GURU PAIGE THE SISTER TO THE PATIENT TO DISCUSS DISCHARGE. PATIENT NOTED TO LIVE IN THE [facility]. CM TO FOLLOW UP IN THE AM. Last DP export: 06/18/18 6:11 Patient Name: MATHEW EMANUEL Page [id number] at 1918 All edits/amendments must be made on the electronic document DICTATION DATE: 06/18/181917 ARCHITECTURE TECHNICIAN: DM 06/18/181917 RPT#: [id number] DC DATE: STATUS: ADM IN [facility] [address] [place] [address] END OF REPORT
--- NOTE | 2018-06-18 19:30 | NUR ---
PATIENT RESTING IN BED WHILE WATCHING TV. CONFUSED. NO IV ACCESS. PATIENT DENIES HAVING ANY NEEDS AT THIS TIME. BED IN LOWEST POSITION. SIDE RAILS UP. BED ALARM ON. CALL LIGHT IN REACH. WILL CONTINUE PLAN OF CARE.
--- NOTE | 2018-06-18 21:00 | NUR ---
PATIENT ASSISTED TO AND FROM RESTROOM. BED IN LOWEST POSITION. SIDE RAILS UP. BED ALARM ON. CALL LIGHT IN REACH. WILL CONTINUE PLAN OF CARE.
[2018-06-18 21:34] VITALS: BP 140/70
--- NOTE | 2018-06-19 03:00 | NUR ---
PATIENT RESTING IN BED WITH EYES CLOSED. NO SIGNS OF DISTRESS. BED IN LOWEST POSITION. SIDE RAILS UP. CALL LIGHT IN REACH. CONTINUE PLAN OF CARE.
[2018-06-19 03:48] VITALS: BP 136/70
[2018-06-19 06:27] VITALS: BP 140/70
[2018-06-19 07:09] LABS: EOSINOPHILS 3.8 % (0-7); HEMATOCRIT 37.1 % (36.0-48.0); HEMOGLOBIN 12.1 g/dL (12-16); IMMATURE GRANULOCYTES 0.4 % (0-5); LYMPHOCYTES 30.6 % (15-50); MCH 30.2 pg (26.0-34.0); MCHC 32.6 g/dL (31.0-37.0); MCV 92.5 fL (80.0-100.0); MEAN PLATELET VOLUME 9.2 fL (7.4-10.4); MONOCYTES 8.1 % (2-11); NEUTROPHILS 56.1 % (40-80); PLATELET COUNT 323 10x3/uL (130-400); RBC 4.01 10x6/uL (4.00-5.40); RDW 13.7 % (11.5-14.5)
[2018-06-19 07:24] LABS: ALBUMIN 3.1 g/dL (3.4-5.0); ANION GAP 17.1 mmol/L (8-16); BILIRUBIN - TOTAL 0.26 mg/dL (0.2-1.3); CALCIUM 8.9 mg/dL (8.5-10.1); CREATININE - SERUM 0.9 mg/dL (0.6-1.3); POTASSIUM - SERUM 4.1 mmol/L (3.5-5.1); PROTEIN - SERUM 6.8 g/dL (6.4-8.2)
[2018-06-19 07:38] VITALS: BP 137/57
--- NOTE | 2018-06-19 07:40 | NUR ---
PT RESTING IN BED WITH EYES CLOSED. RESPIRATIONS EVEN AND UNLABORED. BED LOW BED ALARM ON. WILL CONTINUE MONITOR.
--- NOTE | 2018-06-19 07:55 | NUR ---
RN ROUNDING DONE WITH PATIENT LAYING ON LEFT SIDE, HOB UP AT 45 DEGREES. RESTING WITH EYES CLOSED, RESP ARE EVEN AND NON LABORED. LADY ALARM ON AND IN USE.
[2018-06-19 11:23] VITALS: BP 125/82
--- NOTE | 2018-06-19 12:30 | NUR ---
OT NOTE: PT VERY LETHARGIC TODAY. SLEPT THROUGH BREAKFAST. BED MOB WITH MIN ASSIST; ABLE TO AMB IN ROOM WITH RW AND MIN ASSIST; TOILET TRANSFERS WITH MIN ASSIST; HYGIENE AND CLOTHING MGMT WITH MIN ASSIST. SET UP BREAKFAST TRAY BUT PT DID NOT WANT TO EAT, STATING THAT SHE WAS NOT HUNGRY. JORDAN HARRIS, OTR/L
--- NOTE | 2018-06-19 13:10 | NUR ---
AHA mechanical soft thin diet. Pt eating 5-50% of meals Pt reports she likes Ensure. Spoke with pt about food preferences Will add Ensure RD following
[2018-06-19 15:30] VITALS: BP 107/52
--- NOTE | 2018-06-19 19:30 | NUR ---
PATIENT RESTING IN BED WITH EYES OPEN. CONFUSED. SLURRED SPEECH. COMPLAINS OF BACK PAIN. NO IV ACCESS. DENIES HAVING ANY NEEDS AT THIS TIME. CONTINUE POC.
[2018-06-19 20:00] VITALS: BP 119/43
[2018-06-20] VITALS: BP 134/58
[2018-06-20 04:00] VITALS: BP 114/51
--- NOTE | 2018-06-20 04:00 | NUR ---
PATIENT RESTING IN BED WITH EYES CLOSED. NO SIGNS OF DISTRESS. BED IN LOWEST POSITION. SIDE RAILS UP. CALL LIGHT IN REACH. CONTINUE POC.
--- NOTE | 2018-06-20 07:18 | NUR ---
RECIEVED PT REPORT. PT RESTING IN BED COMFORTABLY. RESPIRATIONS EVEN AND UNLABORED. BED LOW CALL LIGHT WITHIN REACH. WILL CONTINUE TO MONITOR.
[2018-06-20 12:16] VITALS: BP 107/56
--- NOTE | 2018-06-20 14:05 | NUR ---
OT NOTE: PT ASLEEP BUT EASILY AROUSED. REMAINS CONFUSED WITH LABORED SPEECH. BED MOB WITH MIN ASSIST; PT WITH FREQ CUES TO PERFORM GROOMING TASKS; SITTING BALANCE ON EDGE OF BED IS GOOD. JORDAN HARRIS, OTR/L
--- NOTE | 2018-06-20 14:06 | NUR ---
ASSISTED PT TO BATHROOM. PT SOB FROM TRIP TO BATHROOM. O2-99%. RESP-22. PT COMPLAINS OF PAIN IN BACK AND LEG. REPOSITIONED PT WITH PILLOWS. WILL CONTINUE TO MONITOR.
--- NOTE | 2018-06-20 14:34 | NUR ---
PT HERE FOR MULTIPLE FALLS FOR THIS VISIT PT DENIES NEEDS AT THIS TIME WILL CONTINUE TO MONITOR
--- NOTE | 2018-06-20 15:26 | NUR ---
PT CONCERNED ABOUT GETTING REHAB PLACEMENT AND GOING HOME. SPOKE WITH JORDAN IN CASE MANAGMENT AND SHE STATES THAT IT IS BEING WORKED ON. PT IS ALERT AND AWARE OF SITUATION AT THIS TIME. PT COMPLAINS OF PAIN IN BACK AND SHOULDER. PRN PAIN MEDICATION GIVEN. MEDICATION DOESNT SEEM TO BE HELPING. PT CANT GET COMFORTABLE. BED LOW CALL LIGHT WITHIN REACH. WILL CONTINUE TO MONITOR.
[2018-06-20 16:18] VITALS: BP 108/58
--- NOTE | 2018-06-20 17:34 | MORECARE ---
CASE MANAGEMENT DISCHARGE SUMMARY PATIENT: MATHEW EMANUEL UNIT: [id number] ADM DATE: 06/17/18 AGE: 82 : 37 SEX: F ROOM/BED: D.1208 AUTHOR: JOSELYNDOC PHYSICIAN: REFERRING PHYSICIAN: RUBY COLLINS MD DATE OF SERVICE: 06/20/18 Discharge Plan Patient Name: MATHEW EMANUEL Facility: [facility]:[place] : 1935 Planned Disposition: Mcfp Facility Anticipated Discharge Date: 06/21/18 Discharge Date: Expected LOS: 4 Initial Reviewer: [email or web address] Initial Review Date: 06/20/2018 Generated: 06/20/18 6:34 pm Comments DCP- Discharge Planning Updated by [email or web address]: Kelly Faye on 06/18/18 6:[address] CM REVISITED THIS AM. THE PATIENT IS MORE AWAKE BUT VERY SHORT OF BREATH. SHE STATES SHE HAS BEEN TO A REHAB PREVIOUSLY [place] ??? . SHE COULD NOT REMEBER. PERHAPS [facility]. SHE WILL CONSIDER SKILLED STAY AGAIN. SHE GAVE PERMISSION TO SPEAK WITH HER SISTER ,GURU. SHE STATES GURU IS A TWIN. THE TWIN SISTERS LIVE TOGETHER BUT SHE LIVES ALONE. GURU'S ADDRESS IS LISTED THE SAME THE PATIENT. PREVIOUSLY STATED A MESSAGE WAS LEFT. CM AWAITING CB. DCP- Discharge Planning Updated by [email or web address]: Kelly Faye on 06/18/18 5:[address] PATIENT CANNOT PARTICIPATE IN DISCHARGE PLANNING. OT ATTEMPTED TO TREAT TODAY WITHOUT SUCCESS SHE WAS TOO LETHARGIC. PATIENT HAD AMBULATED 130 FT W/ 30% ASSIST. SHE IS BARELY RESPONDING AT THIS TIME. ?? REPEAT CAT OF THE HEAD ?? TC TO GURU PAIGE THE SISTER TO THE PATIENT TO DISCUSS DISCHARGE. PATIENT NOTED TO LIVE IN THE [facility]. CM TO FOLLOW UP IN THE AM. DCPIA - Discharge Planning Initial Assessment Updated by [id number]: Mary Scruggs on 06/20/18 5:33 pm * Is the patient Alert and Oriented? Yes * How many steps to enter\exit or inside your home? * PCP DR. BAXTER * Pharmacy [facility] * Preadmission Environment Home Alone * ADLs Partial Dependent * Partial ADLs (Assistance needed) Bathing Dressing Eating Medication Management * Equipment Shower Chair Walker Wheelchair * List name and contact numbers for known caregivers / representatives who currently or will assist patient after discharge: RICARDO (GRANDDAUGHTER) [phone] * Verbal permission to speak to the caregivers and representatives has been obtained from the patient. Yes * Community resources currently utilized Home Health * Please name any agencies selected above. [facility] CURRENT * Additional services required to return to the preadmission environment? Yes * Can the patient safely return to the preadmission environment? No * Has this patient been hospitalized within the prior 30 days at any hospital? No Last DP export: 06/18/18 6:18 Patient Name: MATHEW EMANUEL Page [phone] at 1734 All edits/amendments must be made on the electronic document DICTATION DATE: 06/20/181733 ORE TESTER: JABIER 06/20/181733 RPT#: [id number] [place] DATE: STATUS: ADM IN [facility] [address] [place] [address] END OF REPORT
--- NOTE | 2018-06-20 18:01 | MORECARE ---
CASE MANAGEMENT DISCHARGE SUMMARY PATIENT: MATHEW EMANUEL UNIT: [id number] ADM DATE: 06/17/18 AGE: 82 : 37 SEX: F ROOM/BED: D.1208 AUTHOR: JOSELYNDOC PHYSICIAN: REFERRING PHYSICIAN: RUBY COLLINS MD DATE OF SERVICE: 06/20/18 Discharge Plan Patient Name: MATHEW EMANUEL Facility: [facility]:[place] : 1935 Planned Disposition: Usp Facility Anticipated Discharge Date: 06/21/18 Discharge Date: Expected LOS: 4 Initial Reviewer: [email or web address] Initial Review Date: 06/20/2018 Generated: 06/20/18 7:01 pm Comments DCP- Discharge Planning Updated by [id number]: Mary Scruggs on 06/20/18 4:[address] Patient Name: MATHEW EMANUEL Admission Status: ER Accout number: [id number] Admission Date: 06-17-2018 : 1935 Admission Diagnosis: Attending: RUBY KAPOOR Current LOS: 3 Anticipated DC Date: 06-21-2018 Planned Disposition: Usp Facility Primary Insurance: MEDICARE A & B Discharge Planning Comments: CM MET WITH PATIENT AND SHE STATED TO CALL HER GRANDDAUGHTER (RICARDO) TO DISCUSS HER DISCHARGE NEEDS AND PLANS. PATIENT LIVES ALONE AND HAS 1 STEP TO ENTER HOME. PATIENTS PCP IS DR. BAXTER AND USES [facility]. PATIENTS GRANDDAUGHTER STATED [facility] AND WOULD LIKE FOR PATIENT TO GO THERE AT DISCHARGE. PATIENT IS CURRENT WITH [facility] PER GRANDDAUGHTER. PATIENT HAS A WHEELCHAIR, WALKER, AND SHOWER CHAIR AT HOME. PATIENT AGREED TO [facility] AND [facility] WAS BY GRANDDAUGHTER (RICARDO). CM WILL FAX INFO IN THE AM TO [facility]. CM WILL CONTINUE TO FOLLOW PATIENT WITH D/C NEEDS AND PLANS. [facility]CP [facility] RICARDO (GRANDDAUGHTER) [phone] Instant Powder Supervisor: Mary Scruggs DCP- Discharge Planning Updated by [id number]: Kelly Faye on 06/18/18 6:[address] CM REVISITED THIS AM. THE PATIENT IS MORE AWAKE BUT VERY SHORT OF BREATH. SHE STATES SHE HAS BEEN TO A REHAB PRE[place]SL[facility] [place] ??? . SHE COULD NOT REMEBER. [facility]HAPS [facility]. SHE WILL CONSIDER SKILLED STAY AGAIN. SHE GAVE PERMISSION TO SPEAK WITH HER SISTER ,GURU. SHE STATES GURU IS A TWIN. THE TWIN SISTERS LIVE TOGETHER BUT SHE LIVES ALONE. GURU'S ADDRESS IS LISTED THE SAME THE PATIENT. PREVIOUSLY STATED A VM MESSAGE WAS LEFT. CM AWAITING CB. DCP- Discharge Planning Updated by [id number]: Kelly Faye on 06/18/18 5:[address] PATIENT CANNOT PARTICIPATE IN DISCHARGE PLANNING. OT ATTEMPTED TO TREAT TODAY WITHOUT SUCCESS SHE WAS TOO LETHARGIC. PATIENT HAD AMBULATED 130 FT W/ 30% ASSIST. SHE IS BARELY RESPONDING AT THIS TIME. ?? REPEAT CAT OF THE HEAD ?? TC TO GURU PAIGE THE SISTER TO THE PATIENT TO DISCUSS DISCHARGE. PATIENT NOTED TO LIVE IN THE [facility]. CM TO FOLLOW UP IN THE AM. DCPIA - Discharge Planning Initial Assessment Updated by [email or web address]: Mary Scruggs on 06/20/18 5:33 pm * Is the patient Alert and Oriented? Yes * How many steps to enter\exit or inside your home? * PCP DR. BAXTER * Pharm[facility] * Preadmission Environment Home Alone * ADLs Partial Dependent * Partial ADLs (Assistance needed) Bathing Dressing Eating Medication Management * Equipment Shower Chair Walker Wheelchair * List name and contact numbers for known caregivers / representatives who currently or will assist patient after discharge: RICARDO (GRANDDAUGHTER) [phone] * Verbal permission to speak to the caregivers and representatives has been obtained from the patient. Yes * Community resources currently utilized Home Health * Please name any agencies selected above. [facility] CUR[facility] * Additional services required to return to the preadmission environment? Yes * Can the patient safely return to the preadmission environment? No * Has this patient been hospitalized within the prior 30 days at any hospital? No Last DP export: 06/20/18 4:34 Patient Name: MATHEW EMANUEL Page 38416 at 1801 All edits/amendments must be made on the electronic document DICTATION DATE: 06/20/181800 DIRECTOR MEDICAID: DM 06/20/18 1801 RPT#: [id number] DC DATE: STATUS: ADM IN [facility] [address] [place] [address] END OF REPORT
--- NOTE | 2018-06-20 19:54 | NUR ---
AWAKE,ALERT.COMPLAINTS OF PAIN TO BACK. NORCO 1 TAB GIVEN PER ORDERS. RESP EVEN AND UNALBORED. NO DISTRESS NOTED. SR UP X 2. CL IN REACH.LADY CAM ON
[2018-06-20 20:00] VITALS: BP 709/56
[2018-06-21] VITALS: BP 119/56
--- NOTE | 2018-06-21 05:59 | NUR ---
LYING QUIELTLY. NO DISTRESS NOTED. CL IN REACH
[2018-06-21 06:14] LABS: BASOPHILS 1.2 % (0-2); EOSINOPHILS 4.3 % (0-7); HEMATOCRIT 34.4 % (36.0-48.0); HEMOGLOBIN 11.3 g/dL (12-16); IMMATURE GRANULOCYTES 0.2 % (0-5); LYMPHOCYTES 37.4 % (15-50); MCH 30.5 pg (26.0-34.0); MCHC 32.8 g/dL (31.0-37.0); MEAN PLATELET VOLUME 9.2 fL (7.4-10.4); MONOCYTES 10.8 % (2-11); NEUTROPHILS 46.1 % (40-80); PLATELET COUNT 331 10x3/uL (130-400); RDW 13.6 % (11.5-14.5); WBC 5.1 10x3/uL (4.8-10.8)
[2018-06-21 06:26] LABS: ANION GAP 15.8 mmol/L (8-16); CALCIUM 8.7 mg/dL (8.5-10.1); CARBON DIOXIDE 23.1 mmol/L (21.0-32.0); CREATININE - SERUM 0.9 mg/dL (0.6-1.3); POTASSIUM - SERUM 3.9 mmol/L (3.5-5.1)
--- NOTE | 2018-06-21 07:15 | NUR ---
RESTING QUIETLY WITH EYES CLOSED. RESP EVEN,NONLABORED. LADY MAT IN USE.
--- NOTE | 2018-06-21 08:00 | NUR ---
ASSESSMENT COMPLETE. NO IV ACCESS. INDEXER SHOWING SR 78 PER TECH. LADY MAT IN USE. DISORIENTED TO TIME,PLACE AND SITUATION. DENIES ANY NEEDS AT THIS TIME.
--- NOTE | 2018-06-21 09:14 | NUR ---
ARMINDA GIVEN FOR COMPLAINT OF BACK AND ARM PAIN. CALL LIGHT WITHIN REACH. LADY MAT IN USE.
[2018-06-21 09:17] VITALS: BP 133/59
--- NOTE | 2018-06-21 11:28 | NUR ---
OT NOTE: PT ASLEEP BUT AROUSED EASILY. REQUIRED SEVERAL MIN TO WAKE UP. BED MOB WITH MIN ASSSIST; AMBULATED TO BATHROOM WITH WALKER AND MIN ASSIST; TRANSFER WITH MIN ASSIST; TOILET HYGIENE WITH MIN ASSIST. ABLE TO AMB WITH WALKER APPROX 45-50 FT WITH MIN ASSIST AND 1 REST BREAK. ABLE TO SIT ON EOB TO PERFORM UE EXS WITH REST BREAKS EVERY 5-6 REPS. BED MOB BACK IN BED WITH MIN ASSIST. C/O R SHOULDER PAIN, HOWEVER, I FEEL IT COULD BE DUE TO POSITION SHE WAS LAYING IN WHILE ASLEEP. PT REMAINS WITH CONFUSION AND DISORIENTATION. WILL REQUIRE CONT THERAPY AND SPV FOR SAFETY JORDAN HARRIS, OTR/L
[2018-06-21 12:00] VITALS: BP 147/57
--- NOTE | 2018-06-21 12:33 | NUR ---
Nutrition Follow Up: Per chart pt is confused and disoriented. Interview deferred at this time. Diet: Regular Pureed with Thin Liquids; Ensure TID PO Intake: 12% meal avg - po intake continues poor BM: 06/18/18 Labs and meds reviewed Rec continue regular diet with CARD TABLE ATTENDANT recs for consistencies. Rec consider an appetite stimulant as pt continues to not meet est nutritional needs. Will continue to send Ensure TID and honor food preferences. RD following.
--- NOTE | 2018-06-21 13:00 | NUR ---
NO CHANGES NOTED AT THIS TIME.
--- NOTE | 2018-06-21 15:11 | MORECARE ---
CASE MANAGEMENT DISCHARGE SUMMARY PATIENT: MATHEW EMANUEL UNIT: [id number] ADM DATE: 06/17/18 AGE: 82 : 37 SEX: F ROOM/BED: D.1208 AUTHOR: RONAL ALVES PHYSICIAN: REFERRING PHYSICIAN: RUBY COLLINS MD DATE OF SERVICE: 06/21/18 Discharge Plan Patient Name: MATHEW EMANUEL Facility: [facility]:[place] : 1935 Planned Disposition: Penitentiary Facility Anticipated Discharge Date: 06/21/18 Discharge Date: Expected LOS: 4 Initial Reviewer: [id number] Initial Review Date: 06/20/2018 Generated: 06/21/18 4:11 pm Comments DCP- Discharge Planning Updated by [id number]: Mary Scruggs on 06/20/18 4:[address] Patient Name: MATHEW EMANUEL Admission Status: ER Accout number: [id number] Admission Date: 06-17-2018 : 1935 Admission Diagnosis: Attending: RUBY KAPOOR Current LOS: 3 Anticipated DC Date: 06-21-2018 Planned Disposition: Penitentiary Facility Primary Insurance: MEDICARE A & B Discharge Planning Comments: CM MET WITH PATIENT AND SHE STATED TO CALL HER GRANDDAUGHTER (RICARDO) TO DISCUSS HER DISCHARGE NEEDS AND PLANS. PATIENT LIVES ALONE AND HAS 1 STEP TO ENTER HOME. PATIENTS PCP IS DR. BAXTER AND USES [facility]. PATIENTS GRANDDAUGHTER STATED [facility] AND WOULD LIKE FOR PATIENT TO GO THERE AT DISCHARGE. PATIENT IS CURRENT WITH [facility] PER GRANDDAUGHTER. PATIENT HAS A WHEELCHAIR, WALKER, AND SHOWER CHAIR AT HOME. PATIENT AGREED TO [facility] AND [facility] WAS BY GRANDDAUGHTER (RICARDO). CM WILL FAX INFO IN THE AM TO [facility]. CM WILL CONTINUE TO FOLLOW PATIENT WITH D/C NEEDS AND PLANS. PCP [facility] RICARDO (GRANDDAUGHTER) [phone] Auto Haulaway Driver: Mary Scruggs DCP- Discharge Planning Updated by [id number]: Kelly Faye on 06/18/18 6:[address] CM REVISITED THIS AM. THE PATIENT IS MORE AWAKE BUT VERY SHORT OF BREATH. SHE STATES SHE HAS BEEN TO A REHAB PREVIOUSLY [place] ??? . SHE COULD NOT REMEBER. PERHAPS [facility]. SHE WILL CONSIDER SKILLED STAY AGAIN. SHE GAVE PERMISSION TO SPEAK WITH HER SISTER ,GURU. SHE STATES GURU IS A TWIN. THE TWIN SISTERS LIVE TOGETHER BUT SHE LIVES ALONE. GURU'S ADDRESS IS LISTED THE SAME THE PATIENT. PREVIOUSLY STATED A VM MESSAGE WAS LEFT. CM AWAITING CB. DCP- Discharge Planning Updated by [id number]: Kelly Faye on 06/18/18 5:[address] PATIENT CANNOT PARTICIPATE IN DISCHARGE PLANNING. OT ATTEMPTED TO TREAT TODAY WITHOUT SUCCESS SHE WAS TOO LETHARGIC. PATIENT HAD AMBULATED 130 FT W/ 30% ASSIST. SHE IS BARELY RESPONDING AT THIS TIME. ?? REPEAT CAT OF THE HEAD ?? TC TO GURU PAIGE THE SISTER TO THE PATIENT TO DISCUSS DISCHARGE. PATIENT NOTED TO LIVE IN THE [facility] ER. CM TO FOLLOW UP IN THE AM. DCPIA - Discharge Planning Initial Assessment Updated by [id number]: Mary Scruggs on 06/20/18 5:33 pm * Is the patient Alert and Oriented? Yes * How many steps to enter\exit or inside your home? * PCP DR. BAXTER * Pharmacy [facility] * Preadmission Environment Home Alone * ADLs Partial Dependent * Partial ADLs (Assistance needed) Bathing Dressing Eating Medication Management * Equipment Shower Chair Walker Wheelchair * List name and contact numbers for known caregivers / representatives who currently or will assist patient after discharge: RICARDO (GRANDDAUGHTER) [phone] * Verbal permission to speak to the caregivers and representatives has been obtained from the patient. Yes * Community resources currently utilized Home Health * Please name any agencies selected above. [facility] CURRENT * Additional services required to return to the preadmission environment? Yes * Can the patient safely return to the preadmission environment? No * Has this patient been hospitalized within the prior 30 days at any hospital? No External Providers External Provider: [facility] Next Contact Date: Service Request Date: Service Type: Resolution: Reviewer: Comments: Coverage Notice Reviewer: [id number] Salena Scruggs Notice Issued Date-Time: 06/20/2018 16:45 Notice Type: IM Discharge Notice Notice Delivered To: Family Member Relationship to Patient: Rosa Special Events Director Name: RICARDO MAGALLANES Delivery Method: PHONE - Phone Gabrielle Days: Prior Verbal Notification: Recipient Understood Notice: Yes Recipient Signature: Med Rec Note Co-signed by Attending: Coverage Notice Comment: Last DP export: 06/20/18 5:01 Patient Name: MATHEW EMANUEL Page 59982 at 1511 All edits/amendments must be made on the electronic document DICTATION DATE: 06/21/181510 COTTON GROWER: JABIER 06/21/181510 RPT#: [id number] DC DATE: STATUS: ADM IN [facility] [address] [place] [address] END OF REPORT
--- NOTE | 2018-06-21 15:56 | MORECARE ---
CASE MANAGEMENT DISCHARGE SUMMARY PATIENT: MATHEW EMANUEL UNIT: [id number] ADM DATE: 06/17/18 AGE: 82 : 37 SEX: F ROOM/BED: D.1208 AUTHOR: RONAL ALVES PHYSICIAN: REFERRING PHYSICIAN: RUBY COLLINS MD DATE OF SERVICE: 06/21/18 Discharge Plan Patient Name: MATHEW EMANUEL Facility: [facility]:[place] : 1935 Planned Disposition: Halfway Facility Anticipated Discharge Date: 06/21/18 Discharge Date: Expected LOS: 4 Initial Reviewer: [id number] Initial Review Date: 06/20/2018 Generated: 06/21/18 4:56 pm Comments DCP- Discharge Planning Updated by [id number]: Nasrin Layne on 06/21/18 2:[address] CM called and [facility] Faxed records as requested. Awaiting determination of acceptance. DCP- Discharge Planning Updated by [id number]: Mary Scruggs on 06/20/18 4:[address] Patient Name: MATHEW EMANUEL Admission Status: ER Accout number: [id number] Admission Date: 06-17-2018 : 1935 Admission Diagnosis: Attending: RUBY KAPOOR Current LOS: 3 Anticipated DC Date: 06-21-2018 Planned Disposition: Halfway Facility Primary Insurance: MEDICARE A & B Discharge Planning Comments: CM MET WITH PATIENT AND SHE STATED TO CALL HER GRANDDAUGHTER (RICARDO) TO DISCUSS HER DISCHARGE NEEDS AND PLANS. PATIENT LIVES ALONE AND HAS 1 STEP TO ENTER HOME. PATIENTS PCP IS DR. BAXTER AND USES [facility]. PATIENTS GRANDDAUGHTER STATED SHE HAD BEEN IN [facility] IN THE PAST AND WOULD LIKE FOR PATIENT TO GO THERE AT DISCHARGE. PATIENT IS CURRENT WITH [facility] PER GRANDDAUGHTER. PATIENT HAS A WHEELCHAIR, WALKER, AND SHOWER CHAIR AT HOME. PATIENT AGREED TO [facility] AND [facility] WAS BY GRANDDAUGHTER (RICARDO). CM WILL FAX INFO IN THE AM TO [facility]. CM WILL CONTINUE TO FOLLOW PATIENT WITH D/C NEEDS AND PLANS. [facility]CP [facility] RICARDO (GRANDDAUGHTER) [phone] Inclusion Special Educator: Mary Scruggs DCP- Discharge Planning Updated by [id number]: Kelly Neyda on 06/18/18 6:[address] CM REVISITED THIS AM. THE PATIENT IS MORE AWAKE BUT VERY SHORT OF BREATH. SHE STATES SHE HAS BEEN TO A REHAB PREVIOUSLY [place] ??? . SHE COULD NOT REMEBER. PERHAPS [facility]. SHE WILL CONSIDER SKILLED STAY AGAIN. SHE GAVE PERMISSION TO SPEAK WITH HER SISTER ,GURU. SHE STATES GURU IS A TWIN. THE TWIN SISTERS LIVE TOGETHER BUT SHE LIVES ALONE. GURU'S ADDRESS IS LISTED THE SAME THE PATIENT. PREVIOUSLY STATED A VM MESSAGE WAS LEFT. CM AWAITING CB. DCP- Discharge Planning Updated by [id number]: Kelly Faye on 06/18/18 5:[address] PATIENT CANNOT PARTICIPATE IN DISCHARGE PLANNING. OT ATTEMPTED TO TREAT TODAY WITHOUT SUCCESS SHE WAS TOO LETHARGIC. PATIENT HAD AMBULATED 130 FT W/ 30% ASSIST. SHE IS BARELY RESPONDING AT THIS TIME. ?? REPEAT CAT OF THE HEAD ?? TC TO GURU PAIGE THE SISTER TO THE PATIENT TO DISCUSS DISCHARGE. PATIENT NOTED TO LIVE IN THE [facility]. CM TO FOLLOW UP IN THE AM. DCPIA - Discharge Planning Initial Assessment Updated by [id number]: Mary Scruggs on 06/20/18 5:33 pm * Is the patient Alert and Oriented? Yes * How many steps to enter\exit or inside your home? * PCP DR. BAXTER * Pharmacy [facility] * Preadmission Environment Home Alone * ADLs Partial Dependent * Partial ADLs (Assistance needed) Bathing Dressing Eating Medication Management * Equipment Shower Chair Walker Wheelchair * List name and contact numbers for known caregivers / representatives who currently or will assist patient after discharge: RICARDO (GRANDDAUGHTER) [phone] * Verbal permission to speak to the caregivers and representatives has been obtained from the patient. Yes * Community resources currently utilized Home Health * Please name any agencies selected above. [facility] CURRENT * Additional services required to return to the preadmission environment? Yes * Can the patient safely return to the preadmission environment? No * Has this patient been hospitalized within the prior 30 days at any hospital? No Coverage Notice Reviewer: [id number] - Mary Sheba Notice Issued Date-Time: 06/20/2018 16:45 Notice Type: IM Discharge Notice Notice Delivered To: Family Member Relationship to Patient: Granddaughter Welder Manufacture Name: RICARDO MAGALLANES Delivery Method: PHONE - Phone Gabrielle Days: Prior Verbal Notification: Recipient Understood Notice: Yes Recipient Signature: Med Rec Note Co-signed by Attending: Coverage Notice Comment: Last DP export: 06/21/18 2:11 Patient Name: MATHEW EMANUEL Page 31400 at 1556 All edits/amendments must be made on the electronic document DICTATION DATE: 06/21/18 1557 RABBLER: JABIER 06/21/18 1554 RPT#: [id number] DC DATE: STATUS: ADM IN [facility] [address] [place] [address] END OF REPORT
--- NOTE | 2018-06-21 16:42 | NUR ---
COMPLAINING OF NECK AND BACK PAIN. NORCO GIVEN. LADY MAT IN USE. CALL LIGHT WITHIN REACH.
--- NOTE | 2018-06-21 16:57 | MORECARE ---
CASE MANAGEMENT DISCHARGE SUMMARY PATIENT: MATHEW EMANUEL UNIT: [id number] ADM DATE: 06/17/18 AGE: 82 : 37 SEX: F ROOM/BED: D.1208 AUTHOR: RONAL ALVES PHYSICIAN: REFERRING PHYSICIAN: RUBY COLLINS MD DATE OF SERVICE: 06/21/18 Discharge Plan Patient Name: MATHEW EMANUEL Facility: [facility]:[place] : 1935 Planned Disposition: Retirement Facility Anticipated Discharge Date: 06/21/18 Discharge Date: Expected LOS: 4 Initial Reviewer: [id number] Initial Review Date: 06/20/2018 Generated: 06/21/18 5:57 pm Comments DCP- Discharge Planning Updated by [email or web address]: Nasrin Layne on 06/21/18 3:[address] CM received call back from Lavonne at [facility] stating they have declined patient for SNF. They recommend [facility] placement. CM will follow up with patient / family in the morning regarding discharge planning. DCP- Discharge Planning Updated by [id number]: Nasrin Layne on 06/21/18 2:[address] CM called and spoke with Lavonne at [facility] about SNF referral. Faxed records as requested. Awaiting determination of acceptance. DCP- Discharge Planning Updated by [id number]: Mary Scruggs on 06/20/18 4:[address] Patient Name: MATHEW EMANUEL Admission Status: ER Accout number: [id number] Admission Date: 06-17-2018 : 1935 Admission Diagnosis: Attending: RUBY KAPOOR Current LOS: 3 Anticipated DC Date: 06-21-2018 Planned Disposition: Retirement Facility Primary Insurance: MEDICARE A & B Discharge Planning Comments: CM MET WITH PATIENT AND SHE STATED TO CALL HER GRANDDAUGHTER (RICARDO) TO DISCUSS HER DISCHARGE NEEDS AND PLANS. PATIENT LIVES ALONE AND HAS 1 STEP TO ENTER HOME. PATIENTS PCP IS DR. BAXTER AND USES [facility]. PATIENTS GRANDDAUGHTER ST[facility] AND WOULD LIKE FOR PATIENT TO GO THERE AT DISCHARGE. PATIENT IS CURRENT WITH [facility] PER GRANDDAUGHTER. PATIENT HAS A WHEELCHAIR, WALKER, AND SHOWER CHAIR AT HOME. PATIENT AGREED TO [facility] AND [facility] WAS BY GRANDDAUGHTER (RICARDO). CM WILL FAX INFO IN THE AM TO [facility]. CM WILL CONTINUE TO FOLLOW PATIENT WITH D/C NEEDS AND PLANS. [facility] RICARDO (GRANDDAUGHTER) [phone] Cardboard Cutter: Mary Scruggs DCP- Discharge Planning Updated by [id number]: Kelly Faye on 06/18/18 6:[address] CM REVISITED THIS AM. THE PATIENT IS MORE AWAKE BUT VERY SHORT OF BREATH. SHE STATES SHE HAS BEEN TO A REHAB PREVIOUSLY [place] ??? . SHE COULD NOT REMEBER. PERHAPS [facility]. SHE WILL CONSIDER SKILLED STAY AGAIN. SHE GAVE PERMISSION TO SPEAK WITH HER SISTER ,GURU. SHE STATES GURU IS A TWIN. THE TWIN SISTERS LIVE TOGETHER BUT SHE LIVES ALONE. GURU'S ADDRESS IS LISTED THE SAME THE PATIENT. PREVIOUSLY STATED A MESSAGE WAS LEFT. CM AWAITING CB. DCP- Discharge Planning Updated by [email or web address]: Kelly Faye on 06/18/18 5:[address] PATIENT CANNOT PARTICIPATE IN DISCHARGE PLANNING. OT ATTEMPTED TO TREAT TODAY WITHOUT SUCCESS SHE WAS TOO LETHARGIC. PATIENT HAD AMBULATED 130 FT W/ 30% ASSIST. SHE IS BARELY RESPONDING AT THIS TIME. ?? REPEAT CAT OF THE HEAD ?? TC TO GURU PAIGE THE SISTER TO THE PATIENT TO DISCUSS DISCHARGE. PATIENT NOTED TO LIVE IN THE [facility]. CM TO FOLLOW UP IN THE AM. DCPIA - Discharge Planning Initial Assessment Updated by [email or web address]: Mary Scruggs on 06/20/18 5:33 pm * Is the patient Alert and Oriented? Yes * How many steps to enter\exit or inside your home? * PCP DR. BAXTER * [facility] * Preadmission Environment Home Alone * ADLs Partial Dependent * Partial ADLs (Assistance needed) Bathing Dressing Eating Medication Management * Equipment Shower Chair Walker Wheelchair * List name and contact numbers for known caregivers / representatives who currently or will assist patient after discharge: RICARDO (GRANDDAUGHTER) [phone] * Verbal permission to speak to the caregivers and representatives has been obtained from the patient. Yes * Community resources currently utilized Home Health * Please name any agencies selected above. [facility] CURRENT * Additional services required to return to the preadmission environment? Yes * Can the patient safely return to the preadmission environment? No * Has this patient been hospitalized within the prior 30 days at any hospital? No Coverage Notice Reviewer: [id number] Salena Scruggs Notice Issued Date-Time: 06/20/2018 16:45 Notice Type: IM Discharge Notice Notice Delivered To: Family Member Relationship to Patient: Granddaughter Police Communications Operator Name: RICARDO [place] Delivery Method: PHONE - Phone Gabrielle Days: Prior Verbal Notification: Recipient Understood Notice: Yes Recipient Signature: Med Rec Note Co-signed by Attending: Coverage Notice Comment: Last DP export: 06/21/18 2:56 Patient Name: MATHEW EMANUEL Page [id number] at 1657 All edits/amendments must be made on the electronic document DICTATION DATE: 06/21/181656 AUTO LEASING MANAGER: JABIER 06/21/181656 RPT#: [id number] DC DATE: STATUS: ADM IN [facility] [address] [place] [address] END OF REPORT
--- NOTE | 2018-06-21 17:06 | MORECARE ---
CASE MANAGEMENT DISCHARGE SUMMARY PATIENT: MATHEW EMANUEL UNIT: [id number] ADM DATE: 06/17/18 AGE: 82 : 37 SEX: F ROOM/BED: D.1208 AUTHOR: RONAL ALVES PHYSICIAN: REFERRING PHYSICIAN: RUBY COLLINS MD DATE OF SERVICE: 06/21/18 Discharge Plan Patient Name: MATHEW EMANUEL Facility: [facility]:[place] : 1935 Planned Disposition: Snf Facility Anticipated Discharge Date: 06/21/18 Discharge Date: Expected LOS: 4 Initial Reviewer: [id number] Initial Review Date: 06/20/2018 Generated: 06/21/18 6:06 pm Comments DCP- Discharge Planning Updated by [email or web address]: Nasrin Layne on 06/21/18 3:[address] CM received call back from Lavonne at [facility] SN[facility] stating they have declined patient for SNF. Lavonne states patient is out of SNF days. States she only had 59 wellness days since last SNF. They recommend [facility] placement. CM will follow up with patient / family in the morning regarding discharge planning. DCP- Discharge Planning Updated by [id number]: Nasrin Layne on 06/21/18 2:[address] CM called and spoke with Lavonne at [facility] about SNF referral. Faxed records as requested. Awaiting determination of acceptance. DCP- Discharge Planning Updated by [email or web address]: Mary Scruggs on 06/20/18 4:[address] Patient Name: MATHEW EMANUEL Admission Status: ER Accout number: [id number] Admission Date: 06-17-2018 : 1935 Admission Diagnosis: Attending: RUBY KAPOOR Current LOS: 3 Anticipated DC Date: 06-21-2018 Planned Disposition: Snf Facility Primary Insurance: MEDICARE A & B Discharge Planning Comments: CM MET WITH PATIENT AND SHE STATED TO CALL HER GRANDDAUGHTER (RICARDO) TO DISCUSS HER DISCHARGE NEEDS AND PLANS. PATIENT LIVES ALONE AND HAS 1 STEP TO ENTER HOME. PATIENTS PCP IS DR. BAXTER AND USES [facility]. PATIENTS GRANDDAUGHTER STATED SHE HAD BEEN [facility] IN THE [facility]ST AND WOULD LIKE FOR PATIENT TO GO THERE AT DISCHARGE. PATIENT IS CURRENT WITH [facility] PER GRANDDAUGHTER. PATIENT HAS A WHEELCHAIR, WALKER, AND SHOWER CHAIR AT HOME. PATIENT AGREED TO [facility] AND [facility] WAS BY GRANDDAUGHTER (RICARDO). CM WILL FAX INFO IN THE AM TO [facility]. CM WILL CONTINUE TO FOLLOW PATIENT WITH D/C NEEDS AND PLANS. PCP [facility] RICARDO (GRANDDAUGHTER) [phone] Senior Business Objects Developer: Mary Scruggs DCP- Discharge Planning Updated by [id number]: Kelly Faye on 06/18/18 6:[address] CM REVISITED THIS AM. THE PATIENT IS MORE AWAKE BUT VERY SHORT OF BREATH. SHE STATES SHE HAS BEEN TO A REHAB [place]Y [place] ??? . SHE COULD NOT REMEBER. PERHAPS [facility]. SHE WILL CONSIDER SKILLED STAY AGAIN. SHE GAVE PERMISSION TO SPEAK WITH HER SISTER ,GURU. SHE STATES GURU IS A TWIN. THE TWIN SISTERS LIVE TOGETHER BUT SHE LIVES ALONE. GURU'S ADDRESS IS LISTED THE SAME THE PATIENT. PREVIOUSLY STATED A MESSAGE WAS LEFT. CM AWAITING CB. DCP- Discharge Planning Updated by [email or web address]: Kelly Faye on 06/18/18 5:[address] PATIENT CANNOT PARTICIPATE IN DISCHARGE PLANNING. OT ATTEMPTED TO TREAT TODAY WITHOUT SUCCESS SHE WAS TOO LETHARGIC. PATIENT HAD AMBULATED 130 FT W/ 30% ASSIST. SHE IS BARELY RESPONDING AT THIS TIME. ?? REPEAT CAT OF THE HEAD ?? TC TO GURU PAIGE THE SISTER TO THE PATIENT TO DISCUSS DISCHARGE. PATIENT NOTED TO LIVE IN THE [facility]. CM TO FOLLOW UP IN THE AM. DCPIA - Discharge Planning Initial Assessment Updated by [email or web address]: Mary Scruggs on 06/20/18 5:33 pm * Is the patient Alert and Oriented? Yes * How many steps to enter\exit or inside your home? * PCP DR. BAXTER * [facility] * Preadmission Environment Home Alone * ADLs Partial Dependent * Partial ADLs (Assistance needed) Bathing Dressing Eating Medication Management * Equipment Shower Chair Walker Wheelchair * List name and contact numbers for known caregivers / representatives who currently or will assist patient after discharge: RICARDO (GRANDDAUGHTER) [phone] * Verbal permission to speak to the caregivers and representatives has been obtained from the patient. Yes * Community resources currently utilized Home Health * Please name any agencies selected above. [facility] CURRENT * Additional services required to return to the preadmission environment? Yes * Can the patient safely return to the preadmission environment? No * Has this patient been hospitalized within the prior 30 days at any hospital? No Coverage Notice Reviewer: [id number] Salena Scruggs Notice Issued Date-Time: 06/20/2018 16:45 Notice Type: IM Discharge Notice Notice Delivered To: Family Member Relationship to Patient: Granddaughter Pneumatic Tube Fitter Name: RICARDO MAGALLANES Delivery Method: PHONE - Phone Gabrielle Days: Prior Verbal Notification: Recipient Understood Notice: Yes Recipient Signature: Med Rec Note Co-signed by Attending: Coverage Notice Comment: Last DP export: 06/21/18 3:57 Patient Name: MATHEW EMANUEL Page [id number] at 1706 All edits/amendments must be made on the electronic document DICTATION DATE: 06/21/181704 LIEUTENANT BALLISTICS: JABIER 06/21/181704 RPT#: [id number] DC DATE: STATUS: ADM IN [facility] [address] [place] [address] END OF REPORT
[2018-06-21 19:46] VITALS: BP 145/74
--- NOTE | 2018-06-21 19:50 | NUR ---
AWAKE,ALERT.ORIENTED TO SELF. RESP UNALBORED. NO DISTRESS NOTED. TURNED AND POSITIONED FOR COMFORT. LADY ALARM ON. CL IN REACH
[2018-06-22 00:20] VITALS: BP 139/76
[2018-06-22 04:41] VITALS: BP 142/74
--- NOTE | 2018-06-22 04:42 | NUR ---
POSITIONED FOR COMFORT.NO DISTRESS NOTED.
--- NOTE | 2018-06-22 05:14 | NUR ---
RESTING WITH EYES CLOSED. RESP EVEN AND NONLABORED. LADY ALARM IN USE FOR PT SAFETY. SR ELEVATED X2. CL IN REACH.
[2018-06-22 05:27] LABS: BASOPHILS 0.5 % (0-2); IMMATURE GRANULOCYTES 0.5 % (0-5); LYMPHOCYTES 38.8 % (15-50); MCH 30.1 pg (26.0-34.0); MCV 91.4 fL (80.0-100.0); MEAN PLATELET VOLUME 9.8 fL (7.4-10.4); MONOCYTES 8.7 % (2-11); NEUTROPHILS 49.5 % (40-80); RDW 13.7 % (11.5-14.5)
[2018-06-22 05:32] LABS: RBC 2.92 10x6/uL (4.00-5.40)
[2018-06-22 05:35] LABS: HEMATOCRIT 31.3 % (36.0-48.0); HEMOGLOBIN 10.2 g/dL (12-16); WBC 4.2 10x3/uL (4.8-10.8)
[2018-06-22 05:36] LABS: PLATELET COUNT 315 10x3/uL (130-400)
[2018-06-22 06:05] LABS: ANION GAP 18.2 mmol/L (8-16); CALCIUM 8.8 mg/dL (8.5-10.1); CARBON DIOXIDE 20.5 mmol/L (21.0-32.0); CREATININE - SERUM 0.8 mg/dL (0.6-1.3); POTASSIUM - SERUM 3.7 mmol/L (3.5-5.1)
--- NOTE | 2018-06-22 08:17 | NUR ---
AM ROUNDS COMPLETED. INTRODUCED MYSELF TO PT PRIMARY RN FOR TODAYS SHIFT. PT IS A&O SITTING UP IN BED RESTING QUIETLY WITH SPOUSE AT BEDSIDE. PT STATES HE IS FEELING GREAT AND THAT THE DOCTOR TOLD HIM HE CAN DISCHARGE TODAY. WILL DISCUSS WITH PRIMARY. SHIFT ASSESSMENT COMPLETED. NO CURRENT NEEDS. WILL CTM.
--- NOTE | 2018-06-22 11:13 | NUR ---
PT NEEDING ASSISTANCE TO BR. ASSISTED PT UP TO BR AND SHE VOIDED LARGE AMOUNT URINE AND HAD A BOWEL MOVEMENT. PT STATES SHE IS FEELING WELL JUST FEELS WEAK AND TIRED. PT WAS DENIED REHAB AND CM IS WORKING ON FURTHER OPTIONS. NO CURRENT NEEDS. WILL CTM.
[2018-06-22 11:56] VITALS: BP 114/55
--- NOTE | 2018-06-22 14:03 | NUR ---
OT NOTE: PT SITTING UP IN BED; TRAY IN FRONT OF HER..PT STATING THAT SHE IS HURTING IN R SHOULDER AND SHOULDER BLADE. GENTLE MASSAGE TO BOTH AREAS. PT STATED THAT SHE RECEIVED SOMETHING EARLIER FOR PAIN BUT HAS NOT HELPED. ENCOURAGED PT TO EAT HER APPETITE HAS BEEN VERY POOR. STATED THAT SHE WAS HURTING TOO BAD TO EAT. FED PT, WITH CONTINUAL ENCOURAGEMENT TO EAT, AND SHE CONSUMED APPROX 40-50%. JORDAN HARRIS, OTR/L
[2018-06-22 16:19] VITALS: BP 102/52
--- NOTE | 2018-06-22 18:03 | NUR ---
PT CALLED FOR ASSISTANCE TO BR. ASSISTED PT AND SHE VOIDED WITHOUT ANY DIFFICULTIES. ASSISTED PT BACK INTO BED AND PULLED HER UP IN BED FOR COMFORT AND SET UP HER DINNER TRAY FOR HER. PT VOICED THANKS AND IS EATING. DENIES ANY FURTHER NEEDS AT THIS TIME. WILL CTM.
--- NOTE | 2018-06-22 18:06 | MORECARE ---
CASE MANAGEMENT DISCHARGE SUMMARY PATIENT: MATHEW EMANUEL UNIT: [id number] ADM DATE: 06/17/18 AGE: 82 : 37 SEX: F ROOM/BED: D.1208 AUTHOR: JOSELYNDOC PHYSICIAN: REFERRING PHYSICIAN: RUBY COLLINS MD DATE OF SERVICE: 06/22/18 Discharge Plan Patient Name: MATHEW EMANUEL Facility: [facility]:[place] : 1935 Planned Disposition: Mcfp Facility Anticipated Discharge Date: 06/21/18 Discharge Date: Expected LOS: 4 Initial Reviewer: [id number] Initial Review Date: 06/20/2018 Generated: 06/22/18 7:06 pm Comments DCP- Discharge Planning Updated by [id number]: Arabella Jo on 06/22/18 5:[address] CM spoke with patient she agrees that she can't return to her home alone. She states she is to weak. CM attempted to contact Grand-daughter Ricardo several times today to discuss Long -term residential care. CM could not get in touch with her. Voicemail is full. CM will continue to follow and assist with discharge planning / needs. DCP- Discharge Planning Updated by [id number]: Nasrin Layne on 06/21/18 3:[address] CM received call back from Lav[facility] at [facility] stating they have declined patient for SNF. Lavonne states patient is out of SNF days. States she only had 59 wellness days since last SNF. They recommend [facility] placement. CM will follow up with patient / family in the morning regarding discharge planning. DCP- Discharge Planning Updated by [email or web address]: Nasrin Layne on 06/21/18 2:[address] CM called and spoke with Lavonne at [facility] about SNF referral. Faxed records as requested. Awaiting determination of acceptance. DCP- Discharge Planning Updated by [email or web address]: Mary Scruggs on 06/20/18 4:[address] Patient Name: MATHEW EMANUEL Admission Status: ER Accout number: [id number] Admission Date: 06-17-2018 : 1935 Admission Diagnosis: Attending: RUBY KAPOOR Current LOS: 3 Anticipated DC Date: 06-21-2018 Planned Disposition: Mcfp Facility Primary Insurance: MEDICARE A & B Discharge Planning Comments: CM MET WITH PATIENT AND SHE STATED TO CALL HER GRANDDAUGHTER (RICARDO) TO DISCUSS HER DISCHARGE NEEDS AND PLANS. PATIENT LIVES ALONE AND HAS 1 STEP TO ENTER HOME. PATIENTS PCP IS DR. BAXTER AND USES [facility]. PATIENTS GRANDDAUGHTER STATED SHE HAD BEEN IN [facility] IN THE PAST AND WOULD LIKE FOR PATIENT TO GO THERE AT DISCHARGE. PATIENT IS CURRENT WITH [facility] PER GRANDDAUGHTER. PATIENT HAS A WHEELCHAIR, WALKER, AND SHOWER CHAIR AT HOME. PATIENT AGREED TO [facility] AND [facility] WAS BY GRANDDAUGHTER (RICARDO). CM WILL FAX INFO IN THE AM TO [facility]. CM WILL CONTINUE TO FOLLOW PATIENT WITH D/C NEEDS AND PLANS. PCP [facility] RICARDO (GRANDDAUGHTER) [phone] Office Communication Professor: Mary Scruggs DCP- Discharge Planning Updated by [email or web address]: Kelly Faye on 06/18/18 6:[address] CM REVISITED THIS AM. THE PATIENT IS MORE AWAKE BUT VERY SHORT OF BREATH. SHE STATES SHE HAS BEEN TO A REHAB [place] ??? . SHE COULD NOT REMEBER. PERHAPS [facility] AND REH[facility]. SHE WILL CONSIDER SKILLED STAY AGAIN. SHE GAVE PERMISSION TO SPEAK WITH HER SISTER ,GURU. SHE STATES GURU IS A TWIN. THE TWIN SISTERS LIVE TOGETHER BUT SHE LIVES ALONE. GURU'S ADDRESS IS LISTED THE SAME THE PATIENT. PREVIOUSLY STATED A MESSAGE WAS LEFT. CM AWAITING CB. DCP- Discharge Planning Updated by [id number]: Kelly Faye on 06/18/18 5:[address] PATIENT CANNOT PARTICIPATE IN DISCHARGE PLANNING. OT ATTEMPTED TO TREAT TODAY WITHOUT SUCCESS SHE WAS TOO LETHARGIC. PATIENT HAD AMBULATED 130 FT W/ 30% ASSIST. SHE IS BARELY RESPONDING AT THIS TIME. ?? REPEAT CAT OF THE HEAD ?? TC TO GURU PAIGE THE SISTER TO THE PATIENT TO DISCUSS DISCHARGE. PATIENT NOTED TO LIVE IN THE [facility]. CM TO FOLLOW UP IN THE AM. DCPIA - Discharge Planning Initial Assessment Updated by [id number]: Mary Scruggs on 06/20/18 5:33 pm * Is the patient Alert and Oriented? Yes * How many steps to enter\exit or inside your home? * PCP DR. BAXTER * Pharmacy [facility] * Preadmission Environment Home Alone * ADLs Partial Dependent * Partial ADLs (Assistance needed) Bathing Dressing Eating Medication Management * Equipment Shower Chair Walker Wheelchair * List name and contact numbers for known caregivers / representatives who currently or will assist patient after discharge: RICARDO (GRANDDAUGHTER) [phone] * Verbal permission to speak to the caregivers and representatives has been obtained from the patient. Yes * Community resources currently utilized Home Health * Please name any agencies selected above. [facility] CURRENT * Additional services required to return to the preadmission environment? Yes * Can the patient safely return to the preadmission environment? No * Has this patient been hospitalized within the prior 30 days at any hospital? No Coverage Notice Reviewer: [id number] Salena Scruggs Notice Issued Date-Time: 06/20/2018 16:45 Notice Type: IM Discharge Notice Notice Delivered To: Family Member Relationship to Patient: Granddaughter Farmer D[employer]ified Crops Name: RICARDO MAGALLANES Delivery Method: PHONE - Phone Gabrielle Days: Prior Verbal Notification: Recipient Understood Notice: Yes Recipient Signature: Med Rec Note Co-signed by Attending: Coverage Notice Comment: Last DP export: 06/21/18 4:06 Patient Name: MATHEW EMANUEL Page [id number] at 1806 All edits/amendments must be made on the electronic document DICTATION DATE: 06/22/181804 GLASSIE: JABIER 06/22/181804 RPT#: [id number] DC DATE: STATUS: ADM IN [facility] [address] [place] [address] END OF REPORT
[2018-06-22 19:34] VITALS: BP 102/54
--- NOTE | 2018-06-22 19:50 | NUR ---
THE PATIENT WAS WATCHING TELEVISION WHEN STAFF ENTERED HER ROOM. THE PATIENT REQUESTED TO USE THE RESTROOM AND WAS ASSISTED THERE. BED IS IN THE LOW POSITION WITH SIDERAILS UP X3 AND THE CALL LIGHT WITHIN REACH. THE PATIENT DEMONSTRATES THE USE OF THE CALL LIGHT. THE PATIENT HAS NO QUESTIONS OR CONCERNS AT THIS TIME.
--- NOTE | 2018-06-22 21:18 | NUR ---
OT NOTE: PT COMPLETED BED MOB WITH MIN A. PT COMPLETED BUE AROM. PT STATES R SHOULDER IS SORE. NURSING STATED PAIN MEDS WERE GIVEN. PT COMPLETED FEEDING WITH MOD A AND MAX CUES FOR INCREASED INTAKE. THANK YOU, BRIAN MAC
[2018-06-23 00:04] VITALS: BP 95/52
--- NOTE | 2018-06-23 02:45 | NUR ---
PATIENT COMPLAINED OF PAIN. MEDICATION DELIVERED. THE PATIENT HAS NO OTHER COMPLAINTS OR CONCERNS.
[2018-06-23 05:06] VITALS: BP 122/62
[2018-06-23 06:46] LABS: EOSINOPHILS 3.8 % (0-7); HEMATOCRIT 35.9 % (36.0-48.0); HEMOGLOBIN 11.7 g/dL (12-16); IMMATURE GRANULOCYTES 0.2 % (0-5); LYMPHOCYTES 38.5 % (15-50); MCH 30.5 pg (26.0-34.0); MCHC 32.6 g/dL (31.0-37.0); MEAN PLATELET VOLUME 9.2 fL (7.4-10.4); NEUTROPHILS 47.5 % (40-80); PLATELET COUNT 304 10x3/uL (130-400); WBC 5.2 10x3/uL (4.8-10.8)
[2018-06-23 06:47] LABS: MCV 93.7 fL (80.0-100.0); RBC 3.83 10x6/uL (4.00-5.40)
[2018-06-23 07:16] LABS: CALC OSMOLALITY 280 mosm/kg (275-300); CARBON DIOXIDE 21.7 mmol/L (21.0-32.0); CHLORIDE - SERUM 104 mmol/L (98-107); CREATININE - SERUM 0.7 mg/dL (0.6-1.3); GLUCOSE 95 mg/dL (74-106); POTASSIUM - SERUM 4.1 mmol/L (3.5-5.1); SODIUM 138 mmol/L (136-145); eGFR NON AFRICAN AMERICAN 85 mL/min (90-120)
[2018-06-23 07:17] LABS: UREA NITROGEN 27 mg/dL (7-18)
--- NOTE | 2018-06-23 08:10 | NUR ---
AWAKE AND ALERT. ORIENTED TO SELF AND TIME. ANSWERS QUESTIONS APPROPRIATELY. LUNGS ARE CLEAR BILATERALLY, NO COUGH NOTED. SKIN IS INTACT WITHOUT REDNESS. NO IV AT THIS TIME. REPOSITIONED IN BED FOR COMFORT. SITTING UP EATING BREAKFAST. DENIES NEEDS.
[2018-06-23 08:21] VITALS: BP 122/56
--- NOTE | 2018-06-23 09:10 | NUR ---
ATE ALL OF BREAKFAST AND DRANK ALL OF ENSURE. REQUESTED AND GIVEN ONE HYDROCODONE PO FOR C/O BACK PAIN. WILL MONITOR.
[2018-06-23 12:55] VITALS: BP 128/77
--- NOTE | 2018-06-23 14:00 | NUR ---
REQUESTED AND GIVEN ONE HYDROCODONE PO FOR C/O BACK PAIN LEVEL 7. WILL MONITOR.
[2018-06-23 16:18] VITALS: BP 117/44
--- NOTE | 2018-06-23 18:14 | NUR ---
REFUSED SUPPER TRAY. NO CHANGES NOTED. DRINKING ENSURE. DENIES NEEDS.
--- NOTE | 2018-06-23 19:40 | NUR ---
ASSISTED PATIENT TO AND FROM RESTROOM. PATIENT VOIDED. PATIENT REQUESTED A PAIN PILL AND DENIES OTHER NEEDS AT THIS TIME. BED IN LOWEST POSITION AND CALL LIGHT WITHIN REACH. ENCOURAGED THE PATIENT TO CALL IF SHE HAS OTHER NEEDS AND TOLD HER I WILL GET HER PAIN PILL SOON POSSIBLE.
[2018-06-23 20:00] VITALS: BP 130/55
[2018-06-24] VITALS: BP 131/45
[2018-06-24 04:00] VITALS: BP 116/47
[2018-06-24 07:25] VITALS: BP 120/53
[2018-06-24 07:27] LABS: BASOPHILS 0.4 % (0-2); EOSINOPHILS 1.4 % (0-7); HEMATOCRIT 34.2 % (36.0-48.0); HEMOGLOBIN 11.3 g/dL (12-16); IMMATURE GRANULOCYTES 0.3 % (0-5); LYMPHOCYTES 13.6 % (15-50); MCH 30.5 pg (26.0-34.0); MCV 92.2 fL (80.0-100.0); MEAN PLATELET VOLUME 9.2 fL (7.4-10.4); MONOCYTES 6.8 % (2-11); NEUTROPHILS 77.5 % (40-80); PLATELET COUNT 306 10x3/uL (130-400); RBC 3.71 10x6/uL (4.00-5.40); RDW 13.8 % (11.5-14.5)
--- NOTE | 2018-06-24 07:38 | NUR ---
AWAKE AND ALERT. ORIENTED TO SELF ONLY. LUNGS ARE CLEAR BILATERALLY, NO COUGH NOTED. SKIN IS INTACT WITHOUT REDNESS. DENIES NEEDS. REPOSITIONED IN BED FOR COMFORT.
[2018-06-24 07:40] LABS: ANION GAP 14.2 mmol/L (8-16); CALCIUM 8.7 mg/dL (8.5-10.1); CARBON DIOXIDE 22.6 mmol/L (21.0-32.0); POTASSIUM - SERUM 3.8 mmol/L (3.5-5.1)
[2018-06-24 07:42] LABS: CREATININE - SERUM 0.9 mg/dL (0.6-1.3)
--- NOTE | 2018-06-24 09:32 | NUR ---
ATE ABOUT HALF OF BREAKFAST AND DRANK AN ENSURE. DENIES NEEDS.
--- NOTE | 2018-06-24 12:20 | NUR ---
ATE ONLY A FEW BITES OF LUNCH AND DRANK HER ENSURE. REQUESTED AND GIVEN ONE HYDROCODONE PO FOR C/O BACK PAIN LEVEL 7. WILL MONITOR.
--- NOTE | 2018-06-24 17:51 | NUR ---
ATE ONLY A FEW BITES OF SUPPER AND DRANK HER ENSURE. REQUESTED AND GIVEN ONE HYDROCODONE PO FOR C/O BACK PAIN LEVEL 9. WILL MONITOR.
[2018-06-24 18:00] VITALS: BP 111/42
--- NOTE | 2018-06-24 19:24 | NUR ---
PATIENT RESTING IN BED WITH EYES CLOSED AND NO S/S OF DISTRESS. BED IN LOWEST POSITION AND CALL LIGHT WITHIN REACH. WILL CONTINUE TO MONITOR.
[2018-06-25 00:30] VITALS: BP 120/52
[2018-06-25 04:00] VITALS: BP 125/54
[2018-06-25 06:51] LABS: BASOPHILS 0.7 % (0-2); HEMATOCRIT 35.5 % (36.0-48.0); HEMOGLOBIN 11.2 g/dL (12-16); IMMATURE GRANULOCYTES 0.6 % (0-5); LYMPHOCYTES 21.4 % (15-50); MCH 29.8 pg (26.0-34.0); MCHC 31.5 g/dL (31.0-37.0); MEAN PLATELET VOLUME 9.5 fL (7.4-10.4); MONOCYTES 11.1 % (2-11); NEUTROPHILS 63.2 % (40-80); PLATELET COUNT 311 10x3/uL (130-400); RBC 3.76 10x6/uL (4.00-5.40)
[2018-06-25 06:53] LABS: MCV 94.4 fL (80.0-100.0); WBC 5.4 10x3/uL (4.8-10.8)
[2018-06-25 07:13] LABS: ANION GAP 15.2 mmol/L (8-16); CALCIUM 8.6 mg/dL (8.5-10.1); CARBON DIOXIDE 23.9 mmol/L (21.0-32.0); CREATININE - SERUM 0.9 mg/dL (0.6-1.3); POTASSIUM - SERUM 4.1 mmol/L (3.5-5.1)
--- NOTE | 2018-06-25 07:39 | NUR ---
PT RESTING COMFORTABLY WITH EYES CLOSED. RESPIRATIONS EVEN AND UNLABORED. BED IN LOW POSITION CALL LIGHT WITHIN REACH. WILL CONTINUE TO MONITOR.
[2018-06-25 08:47] VITALS: BP 139/60
--- NOTE | 2018-06-25 12:19 | NUR ---
OT NOTE: PT INITIALLY RESTING; EASILY AROUSED; BED MOB WITH SPV; AMB WITH CGA AND USE OF RW; SIMPLE GROOMING TASKS WITH SET UP; BACK TO BED WITH CGA. JORDAN HARRIS, OTR/L
--- NOTE | 2018-06-25 13:17 | NUR ---
PT RESTING COMFORTABLY IN BED WITH EYES CLOSED. RESPIRATIONS EVEN AND UNLABORED. BED LOW CALL LIGHT WITHIN REACH. WILL CONTINUE TO MONITOR.
--- NOTE | 2018-06-25 13:19 | NUR ---
PT UP WITH ASSISTANCE TO MERRY.
[2018-06-25 15:14] VITALS: BP 114/56
--- NOTE | 2018-06-25 19:45 | NUR ---
PT RESTING IN BED. ALERT WITH SOME CONFUSION. NO SIGNS OF DISTRESS. BREATHING EVEN AND UNLABORED. PT STATES SHOULDER PAIN WILL GIVE NORCO PER MAR. NO IV SITE. SKIN CLEAN DRY AND INTACT. NO SIGNS OF INFECTION. BOWEL SOUNDS ACTIVE. NO LOWER LEG SWELLING PRESENT. BED ALARM YELLOW GOWN AND SOCKS ON. WILL CONTINUE PLAN OF CARE. CALL LIGHT IN REACH.
[2018-06-25 20:23] VITALS: BP 110/51
[2018-06-26 00:33] VITALS: BP 157/66
--- NOTE | 2018-06-26 01:02 | NUR ---
AWAKE. LYING IN BED TALKING TO SELF. CONFUSED. LADY ALARM ON. SR ELEVATED X2. CL IN REACH.
[2018-06-26 04:54] VITALS: BP 141/61
--- NOTE | 2018-06-26 07:30 | NUR ---
ASSESSMENT COMPLETE. NO IV ACCESS. DISORIENTED TO TIME,PLACE, AND SITUATION. HAND TOUCH UP PAINTER SHOWING ST 124 PER TECH. COMPLAINING OF BACK PAIN.
[2018-06-26 08:35] VITALS: BP 142/68
--- NOTE | 2018-06-26 09:46 | NUR ---
RESTING QUIETLY AT THIS TIME. CALL LIGHT WITHIN REACH. LADY MAT IN USE.
--- NOTE | 2018-06-26 11:24 | NUR ---
AMBULATING IN HALLWAY WITH PHYSICAL THERAPY.
--- NOTE | 2018-06-26 16:15 | NUR ---
NORCO GIVEN FOR COMPLAINT OF BACK PAIN.
[2018-06-26 17:56] VITALS: BP 108/48
--- NOTE | 2018-06-26 19:15 | NUR ---
RESUME CARE . PT LAYING AWAKE IN BED BREATH SOUNDS EVEN AND UNLABORED NO SIGNS OF PAIN OR DISTRESS AT THIS TIME CALL LIGHTIN REACH WILL CONT TO MONITOR
[2018-06-26 20:00] VITALS: BP 109/49
[2018-06-27 00:02] VITALS: BP 134/66
--- NOTE | 2018-06-27 01:38 | NUR ---
PT RESTING IN BED, BED ALARM WENT OFF PT NEEDING TO USE RESTROOM, ASSISTED PT TO RESTROOM MINIMAL ASSIST. PT BACK TO BED. BEDLOW AND CALL LIGHT IN REACH. LADY ALARM ON AND ACTIVE. PT HAS NO S/S OF DISTRESS. WILL CPOC
[2018-06-27 04:00] VITALS: BP 135/67
[2018-06-27 06:43] LABS: BASOPHILS 0.6 % (0-2); EOSINOPHILS 2.8 % (0-7); HEMATOCRIT 34.7 % (36.0-48.0); HEMOGLOBIN 11.1 g/dL (12-16); IMMATURE GRANULOCYTES 0.2 % (0-5); LYMPHOCYTES 30.1 % (15-50); MCH 30.2 pg (26.0-34.0); MCV 94.3 fL (80.0-100.0); MEAN PLATELET VOLUME 9.4 fL (7.4-10.4); MONOCYTES 8.8 % (2-11); NEUTROPHILS 57.5 % (40-80); PLATELET COUNT 310 10x3/uL (130-400); RBC 3.68 10x6/uL (4.00-5.40); RDW 14.2 % (11.5-14.5); WBC 5.5 10x3/uL (4.8-10.8)
--- NOTE | 2018-06-27 07:15 | NUR ---
PT RESTING EYES CLOSED. RR ARE EVEN AND UNLABORED. WCTM.
[2018-06-27 07:30] LABS: ANION GAP 16.8 mmol/L (8-16); BILIRUBIN - TOTAL 0.17 mg/dL (0.2-1.3); CALCIUM 8.7 mg/dL (8.5-10.1); CARBON DIOXIDE 21.3 mmol/L (21.0-32.0); CREATININE - SERUM 0.9 mg/dL (0.6-1.3); POTASSIUM - SERUM 4.1 mmol/L (3.5-5.1)
--- NOTE | 2018-06-27 09:50 | NUR ---
PT REPOSITIONED IN BED, DENIES NEEDS. WCTM.
[2018-06-27 09:58] VITALS: BP 119/60
--- NOTE | 2018-06-27 12:08 | NUR ---
Pureed thin diet with Ensure on all trays Pt ate 100,30,30% of meals on 06/23 Pt ate 75,30,30% of meals on 06/24 Weight 110lb yesterday BM yesterday RD following
--- NOTE | 2018-06-27 12:52 | NUR ---
OT NOTE: BED MOB WITH SPV; ASSISTED PT TO BATHROOM WITH MIN ASSIST; SPV FOR HYGIENE AND MIN ASSIST WITH CLOTHING MGMT; AMB APPROX 75 FT WITH RW FOR ENDURANCE. RETURNED TO BED AND POSITIONED FOR COMFORT. JORDAN HARRIS, OTR/L
--- NOTE | 2018-06-27 17:12 | MORECARE ---
CASE MANAGEMENT DISCHARGE SUMMARY PATIENT: MATHEW EMANUEL UNIT: [id number] ADM DATE: 06/17/18 AGE: 82 : 37 SEX: F ROOM/BED: D.1208 AUTHOR: JOSELYN,DOC PHYSICIAN: REFERRING PHYSICIAN: RUBY COLLINS MD DATE OF SERVICE: 06/27/18 Discharge Plan Patient Name: MATHEW EMANUEL Facility: [facility]:[place] : 1935 Planned Disposition: [facility] Facility Anticipated Discharge Date: 06/21/18 Discharge Date: Expected LOS: 4 Initial Reviewer: [id number] Initial Review Date: 06/20/2018 Generated: 06/27/18 6:12 pm Comments DCP- Discharge Planning Updated by [email or web address]: Tom Clark on 06/27/18 4:[address] Patient Name: MATHEW EMANUEL Encounter No: [id number] : 1935 Primary Insurance: MEDICARE A & B Anticipated DC Date: 06-21-2018 Planned Disposition: [facility] Facility External Planned Provider: [facility], CUSTODIAL CARE MEDICAID BED DCP follow-up note: CM REVIEWED CHART WHICH INDICATES PT CANNOT HAVE RESIDENTIAL REHAB DUE TO BEING OUT OF RESIDENTIAL DAYS AND DID NOT HAVE 60 WELL DAYS TO OBTAIN MORE RESIDENTIAL DAYS. CM SPOKE TO PT IN ROOM WHO REPORTS THAT SHE WILL DO WHATEVER RICARDO, HER GRANDDAUGHTER, THINKS IS BEST. PT REPORTS THAT RICARDO IS TRYING TO GET HER BACK TO THE [facility]. CM CALLED RICARDO MAGALLANES, , WHO INFORMED CM THAT SHE WAS NOT INFORMED THAT PT IS OUT OF SKILLED DAYS AND ASKED FOR OPTIONS. CM EXPLAINED THAT PT WILL NEED TO EITHER PAY FOR BOBBIN STRIPPER CARE OR BE QUALIFIED OF MEDICAID FOR BOBBIN STRIPPER CARE. RICARDO ASKED CM TO CHECK WITH [facility] AND [facility] FOR CUSTODIAL CARE AVAILABILITY AND RICARDO WILL TRY TO DEAL WITH PT'S CERTIFICATE OF DEPOSIT AT THE BANK THAT IS "TIED" TO A LOAN FOR A FAMILY MEMBER. CM CALLED [facility], SPOKE TO NICOLAS WHO INFORMED CM THAT THEY HAVE TRIED TO GET PT QUALIFIED FOR MEDICAID AND THAT PT'S FINANCIAL SITUATION WITH FAMILY IS COMPLICATED AND PT DOES NOT QUALIFY FOR MEDICAID AND PT IS NOT ABLE TO PAY PRIVATE PAY RATES HERSELF FOR CUSTODIAL CARE. CM CALLED [facility], SPOKE TO BECKY, ASKED ABOUT BOBBIN STRIPPER CARE BEDS. BECKY ASKED ABOUT FINANCIAL ASSETS FOR POSSIBLE MEDICAID. CM EXPLAINED THAT CM WAS ADVISED BY ANOTHER [facility] THAT PT DID NOT QUALIFY FOR MEDICAID. BECKY REPORTS BEDS AVAILABLE BUT THAT PT WILL NEED TO PAY [facility]FRONT PRIVATELY FOR CUSTODIAL CARE. CM CALLED AND SPOKE TO GRANDDAUGHTER, RICARDO MAGALLANES, ; ADVISED OF ABOVE INFORMATION. RICARDO WILL TALK TO [facility] IN THE MORNING, 06-28-18, AND TRY TO DEAL WITH THE CERTIFICATE OF DEPOSIT AND SEE IF SHE CAN GET PT TO QUALIFY FOR MEDICAID. CM LEFT CM CONTACT INFORMATION WITH RICARDO AND ASKED HER TO CALL CM WITH UPDATE TOMORROW. CM TO CONTINUE TO FOLLOW AND ASSIST WITH PLACEMENT FOR BOBBIN STRIPPER CARE. Tom Clark, CASE MANAGEMENT DCP- Discharge Planning Updated by [id number]: Aarbella Jo on 06/22/18 5:[address] CM spoke with patient she agrees that she can't return to her home alone. She states she is to weak. CM attempted to contact Grand-daughter Ricardo several times today to discuss Long -term custodial care. CM could not get in touch with her. Voicemail is full. CM will continue to follow and assist with discharge planning / needs. DCP- Discharge Planning Updated by [email or web address]: Nasrin Layne on 06/21/18 3:[address] CM received call back from Nicolas at [facility] stating they have declined patient for SNF. Nicolas states patient is out of SNF days. States she only had 59 wellness days since last SNF. They recommend [facility] placement. CM will follow up with patient / family in the morning regarding discharge planning. DCP- Discharge Planning Updated by [id number]: Nasrin Layne on 06/21/18 2:[address] CM called and spoke with Nicolas at [facility] about SNF referral. Faxed records as requested. Awaiting determination of acceptance. DCP- Discharge Planning Updated by [id number]: Mary Scruggs on 06/20/18 4:[address] Patient Name: MATHEW EMANUEL Admission Status: ER Accout number: [id number] Admission Date: 06-17-2018 : 1935 Admission Diagnosis: Attending: RUBY KAPOOR Current LOS: 3 Anticipated DC Date: 06-21-2018 Planned Disposition: [facility] Primary Insurance: MEDICARE A & B Discharge Planning Comments: CM MET WITH PATIENT AND SHE STATED TO CALL HER GRANDDAUGHTER (RICARDO) TO DISCUSS HER DISCHARGE NEEDS AND PLANS. PATIENT LIVES ALONE AND HAS 1 STEP TO ENTER HOME. PATIENTS PCP IS DR. BAXTER AND USES [facility]. PATIENTS GRANDDAUGHTER STATED SHE HAD BEEN IN [facility] IN THE PAST AND WOULD LIKE FOR PATIENT TO GO THERE AT DISCHARGE. PATIENT IS CURRENT WITH [facility] PER GRANDDAUGHTER. PATIENT HAS A WHEELCHAIR, WALKER, AND SHOWER CHAIR AT HOME. PATIENT AGREED TO [facility] AND [facility] WAS BY GRANDDAUGHTER (RICARDO). CM WILL FAX INFO IN THE AM TO [facility]. CM WILL CONTINUE TO FOLLOW PATIENT WITH D/C NEEDS AND PLANS. PCP [facility] RICARDO (GRANDDAUGHTER) [phone] Field Ironworker: Mary Scruggs DCP- Discharge Planning Updated by [id number]: Kelly Faye on 06/18/18 6:[address] CM REVISITED THIS AM. THE PATIENT IS MORE AWAKE BUT VERY SHORT OF BREATH. SHE STATES SHE HAS BEEN TO A REHAB [facility] [place] ??? . SHE COULD NOT REMEBER. PERHAPS [facility]. SHE WILL CONSIDER SKILLED STAY AGAIN. SHE GAVE PERMISSION TO SPEAK WITH HER SISTER ,GURU. SHE STATES GURU IS A TWIN. THE TWIN SISTERS LIVE TOGETHER BUT SHE LIVES ALONE. GURU'S ADDRESS IS LISTED THE SAME THE PATIENT. PREVIOUSLY STATED A MESSAGE WAS LEFT. CM AWAITING CB. DCP- Discharge Planning Updated by [id number]: Kelly Fontaines on 06/18/18 5:[address] PATIENT CANNOT PARTICIPATE IN DISCHARGE PLANNING. OT ATTEMPTED TO TREAT TODAY WITHOUT SUCCESS SHE WAS TOO LETHARGIC. PATIENT HAD AMBULATED 130 FT W/ 30% ASSIST. SHE IS BARELY RESPONDING AT THIS TIME. ?? REPEAT CAT OF THE HEAD ?? TC TO GURU PAIGE THE SISTER TO THE PATIENT TO DISCUSS DISCHARGE. PATIENT NOTED TO LIVE IN THE [facility]. CM TO FOLLOW UP IN THE AM. DCPIA - Discharge Planning Initial Assessment Updated by [email or web address]: Mary Scruggs on 06/20/18 5:33 pm * Is the patient Alert and Oriented? Yes * How many steps to enter\\exit or inside your home? * PCP DR. BAXTER * Pharmacy [facility] * Preadmission Environment Home Alone * ADLs Partial Dependent * Partial ADLs (Assistance needed) Bathing Dressing Eating Medication Management * Equipment Shower Chair Walker Wheelchair * List name and contact numbers for known caregivers / representatives who currently or will assist patient after discharge: RICARDO (GRANDDAUGHTER) [phone] * Verbal permission to speak to the caregivers and representatives has been obtained from the patient. Yes * Community resources currently utilized Home Health * Please name any agencies selected above. [facility] CURRENT * Additional services required to return to the preadmission environment? Yes * Can the patient safely return to the preadmission environment? No * Has this patient been hospitalized within the prior 30 days at any hospital? No Coverage Notice Reviewer: [id number] - Mary Scruggs Notice Issued Date-Time: 06/20/2018 16:45 Notice Type: IM Discharge Notice Notice Delivered To: Family Member Relationship to Patient: dapatrick [facility] Nurse Practitioner Name: RICARDO VELPEN Delivery Method: PHONE - Phone Gabrielle Days: Prior Verbal Notification: Recipient Understood Notice: Yes Recipient Signature: Med Rec Note Co-signed by Attending: Coverage Notice Comment: Reviewer: [id number] - Tom Clark Notice Issued Date-Time: 06/27/2018 16:30 Notice Type: Patient Choice Letter Notice Delivered To: Family Member Relationship to Patient: [facility] Nurse Practitioner Name: RICARDO VELPEN Delivery Method: HAND - Hand Delivered Gabrielle Days: Prior Verbal Notification: Recipient Understood Notice: Yes Recipient Signature: Yes Med Rec Note Co-signed by Attending: Coverage Notice Comment: 1- [facility], 2-[facility] Last DP export: 06/22/18 5:06 Patient Name: MATHEW EMANUEL Page [id number] at 1712 All edits/amendments must be made on the electronic document DICTATION DATE: 06/27/181710 ROAD ENGINEER: JABIER 06/27/181710 RPT#: [id number] NE DATE: STATUS: ADM IN [facility] [address] [place] [address] END OF REPORT
--- NOTE | 2018-06-27 17:58 | MORECARE ---
CASE MANAGEMENT DISCHARGE SUMMARY PATIENT: MATHEW EMANUEL UNIT: [id number] ADM DATE: 06/17/18 AGE: 82 : 37 SEX: F ROOM/BED: D.1208 AUTHOR: JOSELYN,DOC PHYSICIAN: REFERRING PHYSICIAN: RUBY COLLINS MD DATE OF SERVICE: 06/27/18 Discharge Plan Patient Name: MATHEW EMANUEL Facility: [facility]:[place] : 1935 Planned Disposition: Longterm Facility Anticipated Discharge Date: 06/21/18 Discharge Date: Expected LOS: 4 Initial Reviewer: [id number] Initial Review Date: 06/20/2018 Generated: 06/27/18 6:58 pm Comments DCP- Discharge Planning Updated by [email or web address]: Tom Clark on 06/27/18 4:[address] Patient Name: MATHEW EMANUEL Encounter No: [id number] : 1935 Primary Insurance: MEDICARE A & B Anticipated DC Date: 06-21-2018 Planned Disposition: Longterm Facility External Planned Provider: [facility], SENIOR CARE CARE MEDICAID BED DCP follow-up note: CM REVIEWED CHART WHICH INDICATES PT CANNOT HAVE SHELTER REHAB DUE TO BEING OUT OF SHELTER DAYS AND DID NOT HAVE 60 WELL DAYS TO OBTAIN MORE SHELTER DAYS. CM SPOKE TO PT IN ROOM WHO REPORTS THAT SHE WILL DO WHATEVER RICARDO, HER GRANDDAUGHTER, THINKS IS BEST. PT REPORTS THAT RICARDO IS TRYING TO GET HER BACK TO THE SNF. CM CALLED RICARDO MAGALLANES, , WHO INFORMED CM THAT SHE WAS NOT INFORMED THAT PT IS OUT OF SKILLED DAYS AND ASKED FOR OPTIONS. CM EXPLAINED THAT PT WILL NEED TO EITHER PAY FOR COMMERCIAL FINANCE ANALYST CARE OR BE QUALIFIED OF MEDICAID FOR COMMERCIAL FINANCE ANALYST CARE. RICARDO ASKED CM TO CHECK WITH [facility] AND [facility] FOR SENIOR CARE CARE AVAILABILITY AND RICARDO WILL TRY TO DEAL WITH PT'S CERTIFICATE OF DEPOSIT AT THE BANK THAT IS "TIED" TO A LOAN FOR A FAMILY MEMBER. CM CALLED [facility], SPOKE TO NICOLAS WHO INFORMED CM THAT THEY HAVE TRIED TO GET PT QUALIFIED FOR MEDICAID AND THAT PT'S FINANCIAL SITUATION WITH FAMILY IS COMPLICATED AND PT DOES NOT QUALIFY FOR MEDICAID AND PT IS NOT ABLE TO PAY PRIVATE PAY RATES HERSELF FOR SENIOR CARE CARE. CM CALLED [facility], SPOKE TO BECKY, ASKED ABOUT COMMERCIAL FINANCE ANALYST CARE BEDS. BECKY ASKED ABOUT FINANCIAL ASSETS FOR POSSIBLE MEDICAID. CM EXPLAINED THAT CM WAS ADVISED BY ANOTHER SNF THAT PT DID NOT QUALIFY FOR MEDICAID. BECKY REPORTS BEDS AVAILABLE BUT THAT PT WILL NEED TO PAY [facility] PRIVATELY FOR SENIOR CARE CARE. CM CALLED AND SPOKE TO GRANDDAUGHTER, RICARDO MAGALLANES, ; ADVISED OF ABOVE INFORMATION. RICARDO WILL TALK TO [facility] IN THE MORNING, 06-28-18, AND TRY TO DEAL WITH THE CERTIFICATE OF DEPOSIT AND SEE IF SHE CAN GET PT TO QUALIFY FOR MEDICAID. CM LEFT CM CONTACT INFORMATION WITH RICARDO AND ASKED HER TO CALL CM WITH UPDATE TOMORROW. CM TO CONTINUE TO FOLLOW AND ASSIST WITH PLACEMENT FOR COMMERCIAL FINANCE ANALYST CARE. Tom Clark, CASE MANAGEMENT DCP- Discharge Planning Updated by [id number]: Arabella Jo on 06/22/18 5:[address] CM spoke with patient she agrees that she can't return to her home alone. She states she is to weak. CM attempted to contact Grand-daughter Ricardo several times today to discuss Long -term [facility] care. CM could not get in touch with her. Voicemail is full. CM will continue to follow and assist with discharge planning / needs. DCP- Discharge Planning Updated by [id number]: Nasrin Layne on 06/21/18 3:[address] CM received call back from Nicolas at [facility] stating they have declined patient for SNF. Nicolas states patient is out of SNF days. States she only had 59 wellness days since last SNF. They recommend [facility] placement. CM will follow up with patient / family in the morning regarding discharge planning. DCP- Discharge Planning Updated by [id number]: Nasrin Layne on 06/21/18 2:[address] CM called and spoke with Nicolas at [facility] about SNF referral. Faxed records as requested. Awaiting determination of acceptance. DCP- Discharge Planning Updated by [email or web address]: Mary Scruggs on 06/20/18 4:[address] Patient Name: MATHEW EMANUEL Admission Status: ER Accout number: [id number] Admission Date: 06-17-2018 : 1935 Admission Diagnosis: Attending: RUBY KAPOOR Current LOS: 3 Anticipated DC Date: 06-21-2018 Planned Disposition: Longterm Facility Primary Insurance: MEDICARE A & B Discharge Planning Comments: CM MET WITH PATIENT AND SHE STATED TO CALL HER GRANDDAUGHTER (RICARDO) TO DISCUSS HER DISCHARGE NEEDS AND PLANS. PATIENT LIVES ALONE AND HAS 1 STEP TO ENTER HOME. PATIENTS PCP IS DR. BAXTER AND USES [facility]. PATIENTS GRANDDAUGHTER STATED SHE HAD BEEN IN [facility] IN THE PAST AND WOULD LIKE FOR PATIENT TO GO THERE AT DISCHARGE. PATIENT IS CURRENT WITH [facility] PER GRANDDAUGHTER. PATIENT HAS A WHEELCHAIR, WALKER, AND SHOWER CHAIR AT HOME. PATIENT AGREED TO [facility] AND [facility] WAS BY GRANDDAUGHTER (RICARDO). CM WILL FAX INFO IN THE AM TO [facility]. CM WILL CONTINUE TO FOLLOW PATIENT WITH D/C NEEDS AND PLANS. PCP [facility] RICARDO (GRANDDAUGHTER) [phone] Software Test Engineer: Mary Scruggs DCP- Discharge Planning Updated by [id number]: Kelly Faye on 06/18/18 6:[address] CM REVISITED THIS AM. THE PATIENT IS MORE AWAKE BUT VERY SHORT OF BREATH. SHE STATES SHE HAS BEEN TO A REHAB [facility] [place] ??? . SHE COULD NOT REMEBER. [facility]HAPS [facility]. SHE WILL CONSIDER SKILLED STAY AGAIN. SHE GAVE PERMISSION TO SPEAK WITH HER SISTER ,GURU. SHE STATES GURU IS A TWIN. THE TWIN SISTERS LIVE TOGETHER BUT SHE LIVES ALONE. GURU'S ADDRESS IS LISTED THE SAME THE PATIENT. PREVIOUSLY STATED A MESSAGE WAS LEFT. CM AWAITING CB. DCP- Discharge Planning Updated by [id number]: Kelly Fontaines on 06/18/18 5:[address] PATIENT CANNOT PARTICIPATE IN DISCHARGE PLANNING. OT ATTEMPTED TO TREAT TODAY WITHOUT SUCCESS SHE WAS TOO LETHARGIC. PATIENT HAD AMBULATED 130 FT W/ 30% ASSIST. SHE IS BARELY RESPONDING AT THIS TIME. ?? REPEAT CAT OF THE HEAD ?? TC TO GURU PAIGE THE SISTER TO THE PATIENT TO DISCUSS DISCHARGE. PATIENT NOTED TO LIVE IN THE [facility]. CM TO FOLLOW UP IN THE AM. DCPIA - Discharge Planning Initial Assessment Updated by [email or web address]: Mary Scruggs on 06/20/18 5:33 pm * Is the patient Alert and Oriented? Yes * How many steps to enter\\exit or inside your home? * PCP DR. BAXTER * Pharmacy [facility] * Preadmission Environment Home Alone * ADLs Partial Dependent * Partial ADLs (Assistance needed) Bathing Dressing Eating Medication Management * Equipment Shower Chair Walker Wheelchair * List name and contact numbers for known caregivers / representatives who currently or will assist patient after discharge: RICARDO (GRANDDAUGHTER) [phone] * Verbal permission to speak to the caregivers and representatives has been obtained from the patient. Yes * Community resources currently utilized Home Health * Please name any agencies selected above. [facility] CURRENT * Additional services required to return to the preadmission environment? Yes * Can the patient safely return to the preadmission environment? No * Has this patient been hospitalized within the prior 30 days at any hospital? No Coverage Notice Reviewer: [id number] - Mary Scruggs Notice Issued Date-Time: 06/20/2018 16:45 Notice Type: IM Discharge Notice Notice Delivered To: Family Member Relationship to Patient: dapatrick Imaging Services Director Name: RICARDO MAGALLANES Delivery Method: PHONE - Phone Gabrielle Days: Prior Verbal Notification: Recipient Understood Notice: Yes Recipient Signature: Med Rec Note Co-signed by Attending: Coverage Notice Comment: Reviewer: [id number] - Tom Clark Notice Issued Date-Time: 06/27/2018 16:30 Notice Type: Patient Choice Letter Notice Delivered To: Family Member Relationship to Patient: Rosa Imaging Services Director Name: RICARDO [place]O Delivery Method: HAND - Hand Delivered Gabrielle Days: Prior Verbal Notification: Recipient Understood Notice: Yes Recipient Signature: Yes Med Rec Note Co-signed by Attending: Coverage Notice Comment: 1- [facility], 2-[facility] Last DP export: 06/27/18 4:12 Patient Name: MATHEW EMANUEL Page [id number] at 1758 All edits/amendments must be made on the electronic document DICTATION DATE: 06/27/181757 BAG PRESS OPERATOR: JABIER 06/27/181757 RPT#: [id number] [place] DATE: STATUS: ADM IN [facility] [address] [place] [address] END OF REPORT
--- NOTE | 2018-06-27 19:26 | NUR ---
PT HAS RESTED WELL ALL TODAY. NO COMPLAINTS NOTED. WCTM.
[2018-06-27 20:03] VITALS: BP 104/50
--- NOTE | 2018-06-28 03:00 | NUR ---
THE PATIENT COMPLAINS OF PAIN. MEDICATION DELIVERED AND FOLLOW UP SHOWS PAIN RESOLUTION.
--- NOTE | 2018-06-28 04:38 | NUR ---
THE PATIENT WAS WATCHING TELEVISION WHEN STAFF ENTERED THE PATIENTS ROOM. PATIENT EDUCATED TO CALL STAFF FOR ASSIST IF SHE NEEDS TO USE THE RESTROOM. PATIENT DEMONSTRATES UNDERSTANDING VIA TEACHBACK METHOD. BED IN LOW POSITION WITH SIDERAILS X3 AND CALL LIGHT WITHIN REACH.
[2018-06-28 04:58] VITALS: BP 108/43
[2018-06-28 07:05] LABS: BASOPHILS 0.7 % (0-2); EOSINOPHILS 3.5 % (0-7); HEMATOCRIT 34.3 % (36.0-48.0); HEMOGLOBIN 11.2 g/dL (12-16); IMMATURE GRANULOCYTES 0.5 % (0-5); LYMPHOCYTES 31.5 % (15-50); MCH 30.7 pg (26.0-34.0); MCHC 32.7 g/dL (31.0-37.0); MEAN PLATELET VOLUME 9.6 fL (7.4-10.4); MONOCYTES 7.4 % (2-11); NEUTROPHILS 56.4 % (40-80); PLATELET COUNT 301 10x3/uL (130-400); RBC 3.65 10x6/uL (4.00-5.40); RDW 13.9 % (11.5-14.5); WBC 5.8 10x3/uL (4.8-10.8)
[2018-06-28 07:19] LABS: ALBUMIN 2.9 g/dL (3.4-5.0); ANION GAP 19.2 mmol/L (8-16); BILIRUBIN - TOTAL 0.17 mg/dL (0.2-1.3); CALCIUM 8.1 mg/dL (8.5-10.1); CARBON DIOXIDE 19.3 mmol/L (21.0-32.0); CREATININE - SERUM 0.9 mg/dL (0.6-1.3); POTASSIUM - SERUM 3.5 mmol/L (3.5-5.1); PROTEIN - SERUM 6.2 g/dL (6.4-8.2)
--- NOTE | 2018-06-28 08:00 | NUR ---
PT PRN NORCO GIVEN AT THIS TIME. PT SITTING UP EATING BREAKFAST. WCTM.
[2018-06-28 10:26] VITALS: BP 141/47
[2018-06-28 11:34] VITALS: BP 103/62
[2018-06-28 16:47] VITALS: BP 115/82
[2018-06-28 20:00] VITALS: BP 134/39
--- NOTE | 2018-06-28 20:00 | NUR ---
LYING IN BED. ALERT AND ORIENTED X1. CONFUSED. ANXIOUS, RESTLESS AND TALKS INCOHERENTLY. RESP IRREG. BBS CTA BUT DIMINISHED IN RT LOBES. TELEMETRY SHOWS SR WITH RATE OF 80. [place]. WEARS GLASSES. BRUISES NOTED TO BUE. NO EDEMA NOTED. NO IV ACCESS. LADY ALARM ON. AMB WITH ASSIST. SR ELEVATED X2. CL IN REACH.
--- NOTE | 2018-06-28 20:25 | MORECARE ---
CASE MANAGEMENT DISCHARGE SUMMARY PATIENT: MATHEW EMANUEL UNIT: [id number] ADM DATE: 06/17/18 AGE: 82 : 37 SEX: F ROOM/BED: D.1208 AUTHOR: RONAL ALVES PHYSICIAN: REFERRING PHYSICIAN: RUBY COLLINS MD DATE OF SERVICE: 06/28/18 Discharge Plan Patient Name: MATHEW EMANUEL Facility: [facility]:[place] : 1935 Planned Disposition: Senior Care Facility Anticipated Discharge Date: 06/21/18 Discharge Date: Expected LOS: 4 Initial Reviewer: [id number] Initial Review Date: 06/20/2018 Generated: 06/28/18 9:24 pm Comments DCP- Discharge Planning Updated by [id number]: Mary Scruggs on 06/28/18 7:[address] Patient Name: MATHEW EMANUEL Admission Status: ER Accout number: [id number] Admission Date: 06-17-2018 : 1935 Admission Diagnosis:HISTORY OF FALLING Attending: RUBY KAPOOR Current LOS: 11 Anticipated DC Date: 06-21-2018 Planned Disposition: Senior Care Facility Primary Insurance: MEDICARE A & B Discharge Planning Comments: CM WAS CALLED TO PATIENTS ROOM AND THE GRANDDAUGHTER (RICARDO) STATED SHE WAS FORFIETING THE CD TO PAY A LOAN AND THAT WOULD PROBABLY HELP HER GRANDMOTHER BE ACCEPTED TO [facility]. RICARDO STATED SHE IS GOING TO [facility] TOMORROW AND WILL NOTIFY KATY THE FACILITY WORKER TOMORROW REGARDING THIS SITUATION. Life Advisor: Mary Scruggs DCP- Discharge Planning Updated by [id number]: Tom Clark on 06/27/18 4:[address] Patient Name: MATHEW EMANUEL Encounter No: [id number] : 1935 Primary Insurance: MEDICARE A & B Anticipated DC Date: 06-21-2018 Planned Disposition: Senior Care Facility External Planned Provider: [facility], HYDRAULIC RUBBISH COMPACTOR MECHANIC CARE MEDICAID BED DCP follow-up note: CM REVIEWED CHART WHICH INDICATES PT CANNOT HAVE [facility] DUE TO BEING OUT OF [facility] DAYS AND DID NOT HAVE 60 WELL DAYS TO OBTAIN MORE [facility] DAYS. CM SPOKE TO PT IN ROOM WHO REPORTS THAT SHE WILL DO WHATEVER RICARDO, HER GRANDDAUGHTER, THINKS IS BEST. PT REPORTS THAT RICARDO IS TRYING TO GET HER BACK TO THE [facility]. CM CALLED RICARDO MAGALLANES, , WHO INFORMED CM THAT SHE WAS NOT INFORMED THAT PT IS OUT OF SKILLED DAYS AND ASKED FOR OPTIONS. CM EXPLAINED THAT PT WILL NEED TO EITHER PAY FOR RESIDENTIAL CARE OR BE QUALIFIED OF MEDICAID FOR RESIDENTIAL CARE. RICARDO ASKED CM TO CHECK WITH [facility] AND [facility] FOR RESIDENTIAL CARE AVAILABILITY AND RICARDO WILL TRY TO DEAL WITH PT'S CERTIFICATE OF DEPOSIT AT THE BANK THAT IS "TIED" TO A LOAN FOR A FAMILY MEMBER. CM CALLED [facility] AND [facility], SPOKE TO NICOLAS WHO INFORMED CM THAT THEY HAVE TRIED TO GET PT QUALIFIED FOR MEDICAID AND THAT PT'S FINANCIAL SITUATION WITH FAMILY IS COMPLICATED AND PT DOES NOT QUALIFY FOR MEDICAID AND PT IS NOT ABLE TO PAY PRIVATE PAY RATES HERSELF FOR HYDRAULIC RUBBISH COMPACTOR MECHANIC CARE. CM CALLED [facility], SPOKE TO BECKY, ASKED ABOUT RESIDENTIAL CARE BEDS. BECKY ASKED ABOUT FINANCIAL ASSETS FOR POSSIBLE MEDICAID. CM EXPLAINED THAT CM WAS ADVISED BY ANOTHER [facility] THAT PT DID NOT QUALIFY FOR MEDICAID. BECKY REPORTS BEDS AVAILABLE BUT THAT PT WILL NEED TO PAY UPFRONT PRIVATELY FOR RESIDENTIAL CARE. CM CALLED AND SPOKE TO BHAKTI, RICARDO MAGALLANES, ; ADVISED OF ABOVE INFORMATION. RICARDO WILL TALK TO [facility] AND [facility] IN THE MORNING, 06-28-18, AND TRY TO DEAL WITH THE CERTIFICATE OF DEPOSIT AND SEE IF SHE CAN GET PT TO QUALIFY FOR MEDICAID. CM LEFT CM CONTACT INFORMATION WITH RICARDO AND ASKED HER TO CALL WITH UPDATE TOMORROW. CM TO CONTINUE TO FOLLOW AND ASSIST WITH PLACEMENT FOR RESIDENTIAL CARE. Tom Clark, CASE MANAGEMENT DCP- Discharge Planning Updated by [id number]: Arabella Jo on 06/22/18 5:[address] CM spoke with patient she agrees that she can't return to her home alone. She states she is to weak. CM attempted to contact Grand-daughter Ricardo several times today to discuss Long -term senior care care. CM could not get in touch with her. Voicemail is full. CM will continue to follow and assist with discharge planning / needs. DCP- Discharge Planning Updated by [id number]: Nasrin Layne on 06/21/18 3:[address] CM received call back from Nicolas at [facility] stating they have declined patient for SNF. Nicolas states patient is out of SNF days. States she only had 59 wellness days since last SNF. They recommend [facility] placement. CM will follow up with patient / family in the morning regarding discharge planning. DCP- Discharge Planning Updated by [id number]: Nasrin Roverto on 06/21/18 2:[address] CM called and spoke with Nicolas at [facility] about SNF referral. Faxed records as requested. Awaiting determination of acceptance. DCP- Discharge Planning Updated by [id number]: Mary Scruggs on 06/20/18 4:[address] Patient Name: MATHEW EMANUEL Admission Status: ER Accout number: [id number] Admission Date: 06-17-2018 : 1935 Admission Diagnosis: Attending: RUBY KAPOOR Current LOS: 3 Anticipated DC Date: 06-21-2018 Planned Disposition: Senior Care Facility Primary Insurance: MEDICARE A & B Discharge Planning Comments: CM MET WITH PATIENT AND SHE STATED TO CALL HER GRANDDAUGHTER (RICARDO) TO DISCUSS HER DISCHARGE NEEDS AND PLANS. PATIENT LIVES ALONE AND HAS 1 STEP TO ENTER HOME. PATIENTS PCP IS DR. BAXTER AND USES [facility]. PATIENTS GRANDDAUGHTER STATED SHE HAD BEEN IN [facility] IN THE PAST AND WOULD LIKE FOR PATIENT TO GO THERE AT DISCHARGE. PATIENT IS CURRENT WITH [facility] PER GRANDDAUGHTER. PATIENT HAS A WHEELCHAIR, WALKER, AND SHOWER CHAIR AT HOME. PATIENT AGREED TO [facility] AND [facility]BAL [facility]ZE[facility] WAS BY GRANDDAUGHTER (RICARDO). CM WILL FAX INFO IN THE AM TO [facility]. CM WILL CONTINUE TO FOLLOW PATIENT WITH D/C NEEDS AND PLANS. [facility]CP [facility] RICARDO (GRANDDAUGHTER) [phone] Life Advisor: Mary Scruggs DCP- Discharge Planning Updated by [id number]: Kelly Faye on 06/18/18 6:[address] CM REVISITED THIS AM. THE PATIENT IS MORE AWAKE BUT VERY SHORT OF BREATH. SHE STATES SHE HAS BEEN TO A REHAB [facility]VI[facility]SL[facility] ??? . SHE COULD NOT REMEBER. PERHAPS [facility] AND REHAB. SHE WILL CONSIDER SKILLED STAY AGAIN. SHE GAVE PERMISSION TO SPEAK WITH HER SISTER ,GURU. SHE STATES GURU IS A TWIN. THE TWIN SISTERS LIVE TOGETHER BUT SHE LIVES ALONE. GURU'S ADDRESS IS LISTED THE SAME THE PATIENT. PREVIOUSLY STATED A VM MESSAGE WAS LEFT. CM AWAITING CB. DCP- Discharge Planning Updated by [id number]: Kelly Calcasieu on 06/18/18 5:[address] PATIENT CANNOT PARTICIPATE IN DISCHARGE PLANNING. OT ATTEMPTED TO TREAT TODAY WITHOUT SUCCESS SHE WAS TOO LETHARGIC. PATIENT HAD AMBULATED 130 FT W/ 30% ASSIST. SHE IS BARELY RESPONDING AT THIS TIME. ?? REPEAT CAT OF THE HEAD ?? TC TO GURU PAIGE THE SISTER TO THE PATIENT TO DISCUSS DISCHARGE. PATIENT NOTED TO LIVE IN THE [facility]. CM TO FOLLOW UP IN THE AM. DCPIA - Discharge Planning Initial Assessment Updated by [email or web address]: Mary Scruggs on 06/20/18 5:33 pm * Is the patient Alert and Oriented? Yes * How many steps to enter\\exit or inside your home? * PCP DR. BAXTER * Pharmacy [facility] * Preadmission Environment Home Alone * ADLs Partial Dependent * Partial ADLs (Assistance needed) Bathing Dressing Eating Medication Management * Equipment Shower Chair Walker Wheelchair * List name and contact numbers for known caregivers / representatives who currently or will assist patient after discharge: RICARDO (GRANDDAUGHTER) [phone] * Verbal permission to speak to the caregivers and representatives has been obtained from the patient. Yes * Community resources currently utilized Home Health * Please name any agencies selected above. [facility] CUR[facility] * Additional services required to return to the preadmission environment? Yes * Can the patient safely return to the preadmission environment? No * Has this patient been hospitalized within the prior 30 days at any hospital? No Coverage Notice Reviewer: [id number] - Mary Scruggs Notice Issued Date-Time: 06/20/2018 16:45 Notice Type: IM Discharge Notice Notice Delivered To: Family Member Relationship to Patient: Granddaughter Arabic Teacher Name: RICARDO MAGALLANES Delivery Method: PHONE - Phone Gabrielle Days: Prior Verbal Notification: Recipient Understood Notice: Yes Recipient Signature: Med Rec Note Co-signed by Attending: Coverage Notice Comment: Reviewer: [id number] - Tom Clark Notice Issued Date-Time: 06/27/2018 16:30 Notice Type: Patient Choice Letter Notice Delivered To: Family Member Relationship to Patient: Granddaughter Arabic Teacher Name: RICARDO MAGALLANES Delivery Method: HAND - Hand Delivered Gabrielle Days: Prior Verbal Notification: Recipient Understood Notice: Yes Recipient Signature: Yes Med Rec Note Co-signed by Attending: Coverage Notice Comment: 1- [facility], 2-[facility] FOR HYDRAULIC RUBBISH COMPACTOR MECHANIC CARE Last DP export: 06/27/18 4:58 Patient Name: MATHEW EMANUEL Page [id number] at 2024 All edits/amendments must be made on the electronic document DICTATION DATE: 06/28/182023 [employer]ENTER MANAGER: JABIER 06/28/182023 RPT#: [id number] [place] DATE: STATUS: ADM IN [facility] [address] [place] [address] END OF REPORT
--- NOTE | 2018-06-28 21:50 | NUR ---
C/O PAIN IN BACK AND LEGS. MEDICATED WITH NORCO ORDERED. CL IN REACH.
[2018-06-29] VITALS: BP 138/54
--- NOTE | 2018-06-29 01:14 | NUR ---
AWAKE. CONFUSED. LYING IN BED. NO ACUTE DISTRESS. LADY ON. CL IN REACH.
[2018-06-29 04:00] VITALS: BP 115/52
[2018-06-29 05:52] LABS: ALBUMIN 2.8 g/dL (3.4-5.0); ANION GAP 15.4 mmol/L (8-16); BILIRUBIN - TOTAL 0.16 mg/dL (0.2-1.3); CALCIUM 8.6 mg/dL (8.5-10.1); CARBON DIOXIDE 22.7 mmol/L (21.0-32.0); CREATININE - SERUM 0.9 mg/dL (0.6-1.3); POTASSIUM - SERUM 4.1 mmol/L (3.5-5.1); PROTEIN - SERUM 6.7 g/dL (6.4-8.2)
[2018-06-29 06:25] LABS: BASOPHILS 0.7 % (0-2); EOSINOPHILS 3.8 % (0-7); HEMATOCRIT 33.8 % (36.0-48.0); HEMOGLOBIN 10.8 g/dL (12-16); IMMATURE GRANULOCYTES 0.5 % (0-5); MCV 93.9 fL (80.0-100.0); MEAN PLATELET VOLUME 9.4 fL (7.4-10.4); MONOCYTES 8.7 % (2-11); NEUTROPHILS 52.3 % (40-80); PLATELET COUNT 307 10x3/uL (130-400); RDW 13.8 % (11.5-14.5); WBC 5.7 10x3/uL (4.8-10.8)
--- NOTE | 2018-06-29 08:49 | NUR ---
PT RESTING, EYES CLOSED. BED LOW. CL IN REACH. WCTM.
[2018-06-29 09:20] VITALS: BP 114/49
[2018-06-29 14:41] VITALS: BP 122/52
[2018-06-29 16:12] VITALS: BP 109/50
--- NOTE | 2018-06-29 19:43 | NUR ---
RECEIVED REPORT. LYING IN BED HOB ELEVATED EYES CLOSED RESTING. DENIES ANY NEEDS OR PAIN. RR EVEN AND UNLABORED. CALL LIGHT WITHIN REACH, FALL PRECAUTIONS IN PLACE
[2018-06-29 20:00] VITALS: BP 101/45
--- NOTE | 2018-06-29 23:39 | NUR ---
LYING IN BED HOB ELEVATED 30 DEGREES EYES CLOSED RESTING. RR EVEN AND UNLABORED. CALL LIGHT WITHIN REACH, BED ALARM ON
[2018-06-30] VITALS: BP 119/44
--- NOTE | 2018-06-30 00:14 | NUR ---
RESTING QUIETLY WITH EYES CLOSED. CHEST RISING AND FALLING EVENLY. NO DISTRESS. LADY ALARM ON. SR ELEVATED X2. CL IN REACH.
--- NOTE | 2018-06-30 01:43 | NUR ---
LYING IN BED EYES CLOSED RESTING. RR EVEN AND UNLABORED
[2018-06-30 04:00] VITALS: BP 114/42
--- NOTE | 2018-06-30 05:10 | NUR ---
LYING IN BED ON RIGHT SIDE EYES CLOSED RESTING. EASILY AROUSED WITH VERBAL STIMULI. ADMININSTERED AM MED WHOLE WITHOUT DIFFICULTY. CALL LIGHT WITHIN REACH, BED ALARM ON
[2018-06-30 06:52] LABS: BASOPHILS 1.1 % (0-2); EOSINOPHILS 3.8 % (0-7); HEMATOCRIT 32.9 % (36.0-48.0); HEMOGLOBIN 10.8 g/dL (12-16); IMMATURE GRANULOCYTES 0.8 % (0-5); LYMPHOCYTES 36.1 % (15-50); MCH 30.7 pg (26.0-34.0); MCHC 32.8 g/dL (31.0-37.0); MCV 93.5 fL (80.0-100.0); MEAN PLATELET VOLUME 9.3 fL (7.4-10.4); MONOCYTES 8.1 % (2-11); NEUTROPHILS 50.1 % (40-80); PLATELET COUNT 301 10x3/uL (130-400); RBC 3.52 10x6/uL (4.00-5.40); WBC 5.3 10x3/uL (4.8-10.8)
--- NOTE | 2018-06-30 07:30 | NUR ---
ASSESSMENT COMPLETE. NO IV ACCESS. DISORIENTED TO TIME,PLACE AND SITUATION. COOPERATIVE EDUCATION DIRECTOR SHOWING SR 83 PER TECH.
[2018-06-30 07:38] LABS: ALBUMIN 2.8 g/dL (3.4-5.0); ANION GAP 16.2 mmol/L (8-16); BILIRUBIN - TOTAL 0.22 mg/dL (0.2-1.3); CALCIUM 8.6 mg/dL (8.5-10.1); CREATININE - SERUM 0.9 mg/dL (0.6-1.3); POTASSIUM - SERUM 4.2 mmol/L (3.5-5.1); PROTEIN - SERUM 6.6 g/dL (6.4-8.2)
[2018-06-30 11:33] VITALS: BP 112/53
--- NOTE | 2018-06-30 11:36 | NUR ---
NORCO GIVEN FOR COMPLAINT OF BACK PAIN.
[2018-06-30 16:41] VITALS: BP 99/36
--- NOTE | 2018-06-30 17:20 | NUR ---
COMPLAINING OF BACK AND SHOULDER PAIN. NORCO GIVEN.
[2018-06-30 19:40] VITALS: BP 127/48
--- NOTE | 2018-06-30 19:43 | NUR ---
RECIEVED LAYING IN BED WITH EYES OPEN. ALERT AND ORIENTED TO PERSON. TELEMETRY IN PLACE. BED ALARM IN PLACE AND FUNCTIONING PROPERLY. DENIES ANY NEEDS OR PAIN. NO S/S OF DISTRESS OBSERVED. WILL CONT. POC.
[2018-06-30 23:55] VITALS: BP 103/47
--- NOTE | 2018-07-01 01:09 | NUR ---
C/O RIGHT GREAT TOE PAIN AT 5. REQUESTED PAIN MED. NO REDNESS OR SWELLING TO AREA. MEDICATION GIVEN. WILL REASSESS.
[2018-07-01 03:45] VITALS: BP 103/48
[2018-07-01 06:27] LABS: BASOPHILS 0.5 % (0-2); EOSINOPHILS 4.1 % (0-7); HEMATOCRIT 33.3 % (36.0-48.0); HEMOGLOBIN 10.7 g/dL (12-16); IMMATURE GRANULOCYTES 1.1 % (0-5); LYMPHOCYTES 33.6 % (15-50); MCH 30.1 pg (26.0-34.0); MCHC 32.1 g/dL (31.0-37.0); MCV 93.8 fL (80.0-100.0); MONOCYTES 9.1 % (2-11); NEUTROPHILS 51.6 % (40-80); PLATELET COUNT 289 10x3/uL (130-400); RBC 3.55 10x6/uL (4.00-5.40); RDW 13.9 % (11.5-14.5); WBC 5.6 10x3/uL (4.8-10.8)
[2018-07-01 06:46] LABS: ALBUMIN 2.8 g/dL (3.4-5.0); ANION GAP 13.6 mmol/L (8-16); BILIRUBIN - TOTAL 0.22 mg/dL (0.2-1.3); CALCIUM 8.6 mg/dL (8.5-10.1); CARBON DIOXIDE 24.6 mmol/L (21.0-32.0); CREATININE - SERUM 0.8 mg/dL (0.6-1.3); POTASSIUM - SERUM 4.2 mmol/L (3.5-5.1); PROTEIN - SERUM 6.4 g/dL (6.4-8.2)
--- NOTE | 2018-07-01 07:30 | NUR ---
REC'D IN BED AWAKE AND ALERT. RESP EVEN AND UNLABORED WITH NO DISTRESS NOTED. CAN EXPRESS NEEDS AND WANTS. NO C/O NOTED OR VOICED. ASSESSMENT COMPLETED. C/L IN REACH AT BEDSIDE.
[2018-07-01 08:00] VITALS: BP 108/59
--- NOTE | 2018-07-01 08:57 | NUR ---
RESTING QUIETLY IN BED WITH EYES CLOSED. RESP EVEN,NONLABORED.
[2018-07-01 16:00] VITALS: BP 106/67
[2018-07-01 16:36] VITALS: BP 142/67
--- NOTE | 2018-07-01 19:15 | NUR ---
RECEIVED CARE FROM DAY NURSE. IN HIGH FOWLERS POSITION. PILLOWS RESITUATED. REPORTS NO OTHER NEEDS AT THIS TIME. CALL LIGHT AT SIDE. LADY MAT IN PLACE AND ARMED.
[2018-07-01 20:00] VITALS: BP 107/55
--- NOTE | 2018-07-01 20:45 | NUR ---
PATIENT RESTING IN BED WITH NO S/S OF DISTRESS. JENNIFER SHEIKH AT BEDSIDE. WILL CONTINUE TO MONITOR.
[2018-07-02] VITALS: BP 126/45
[2018-07-02 04:00] VITALS: BP 109/55
[2018-07-02 07:01] LABS: BASOPHILS 0.6 % (0-2); EOSINOPHILS 2.7 % (0-7); HEMATOCRIT 32.1 % (36.0-48.0); HEMOGLOBIN 10.7 g/dL (12-16); IMMATURE GRANULOCYTES 0.5 % (0-5); LYMPHOCYTES 34.4 % (15-50); MCH 30.3 pg (26.0-34.0); MCHC 33.3 g/dL (31.0-37.0); MEAN PLATELET VOLUME 9.3 fL (7.4-10.4); MONOCYTES 8.8 % (2-11); PLATELET COUNT 317 10x3/uL (130-400); RBC 3.53 10x6/uL (4.00-5.40); RDW 13.9 % (11.5-14.5); WBC 6.3 10x3/uL (4.8-10.8)
[2018-07-02 07:02] LABS: MCV 90.9 fL (80.0-100.0)
--- NOTE | 2018-07-02 07:15 | NUR ---
REC'D IN BED WITH EYES CLOSED EASILY AROUSED WHEN NAME IS CALLED. RESP EVEN AND UNLABORED WITH NO DISTRESS NOTED. CAN EXPRESS SOME NEEDS AND WANTS. NO C/O NOTED OR VOICED. ASSESSMENT COMPLETED. C/L IN REACH AT BEDSIDE.
[2018-07-02 07:23] LABS: ALBUMIN 2.9 g/dL (3.4-5.0); ANION GAP 17.2 mmol/L (8-16); BILIRUBIN - TOTAL 0.26 mg/dL (0.2-1.3); CALCIUM 8.6 mg/dL (8.5-10.1); CARBON DIOXIDE 20.4 mmol/L (21.0-32.0); POTASSIUM - SERUM 3.6 mmol/L (3.5-5.1); PROTEIN - SERUM 6.7 g/dL (6.4-8.2)
--- NOTE | 2018-07-02 11:21 | MORECARE ---
CASE MANAGEMENT DISCHARGE SUMMARY PATIENT: MATHEW EMANUEL UNIT: [id number] ADM DATE: 06/17/18 AGE: 82 : 37 SEX: F ROOM/BED: D.1208 AUTHOR: RONAL ALVES PHYSICIAN: REFERRING PHYSICIAN: RUBY COLLINS MD DATE OF SERVICE: 07/02/18 Discharge Plan Patient Name: MATHEW EMANUEL Facility: [facility]:[place] : 1935 Planned Disposition: Shelter Facility Anticipated Discharge Date: 06/21/18 Discharge Date: Expected LOS: 4 Initial Reviewer: [id number] Initial Review Date: 06/20/2018 Generated: 07/02/18 12:21 pm Comments DCP- Discharge Planning Updated by [email or web address]: Nasrin Layne on 07/02/18 10:[address] CM called [facility] to check status of family making financial arrangements for placement. CM spoke with Nicolas who informed CM that no one from the family has been there to make financial arrangements. CM called patient's granddaughter, Ricardo Aguilar at [phone], who was supposed to call CM on 06/29/18 about status of placement. CM left message on voice mail to return call. CM called patient's sister, Robina Winchester at [phone], attempting to reach Ricardo. Left message for Robina to return my call. DCP- Discharge Planning Updated by [id number]: Mary Scruggs on 06/28/18 7:[address] Patient Name: MATHEW EMANUEL Admission Status: ER Accout number: [id number] Admission Date: 06-17-2018 : 1935 Admission Diagnosis:HISTORY OF FALLING Attending: RUBY KAPOOR Current LOS: 11 Anticipated DC Date: 06-21-2018 Planned Disposition: Shelter Facility Primary Insurance: MEDICARE A & B Discharge Planning Comments: CM WAS CALLED TO PATIENTS ROOM AND THE GRANDDAUGHTER (RICARDO) STATED SHE WAS FORFIETING THE CD TO PAY A LOAN AND THAT WOULD PROBABLY HELP HER GRANDMOTHER BE ACCEPTED TO [facility]. RICARDO STATED SHE IS GOING TO [facility] TOMORROW AND WILL NOTIFY KATY THE CLOTH CLASSER TOMORROW REGARDING THIS SITUATION. Animal Rides Manager: Mary Scruggs DCP- Discharge Planning Updated by [id number]: Tom Eduardo on 06/27/18 4:[address] Patient Name: MATHEW EMANUEL Encounter No: [id number] : 1935 Primary Insurance: MEDICARE A & B Anticipated DC Date: 06-21-2018 Planned Disposition: Shelter Facility External Planned Provider: [facility], CODING AND REIMBURSEMENT SPECIALIST CARE MEDICAID BED DCP follow-up note: CM REVIEWED CHART WHICH INDICATES PT CANNOT HAVE ASSISTED REHAB DUE TO BEING OUT OF ASSISTED DAYS AND DID NOT HAVE 60 WELL DAYS TO OBTAIN MORE ASSISTED DAYS. CM SPOKE TO PT IN ROOM WHO REPORTS THAT SHE WILL DO WHATEVER RICARDO, HER GRANDDAUGHTER, THINKS IS BEST. PT REPORTS THAT RICARDO IS TRYING TO GET HER BACK TO THE [facility]. CM CALLED RICARDOKRIS AGUILAR, , WHO INFORMED CM THAT SHE WAS NOT INFORMED THAT PT IS OUT OF SKILLED DAYS AND ASKED FOR OPTIONS. CM EXPLAINED THAT PT WILL NEED TO EITHER PAY FOR CODING AND REIMBURSEMENT SPECIALIST CARE OR BE QUALIFIED OF MEDICAID FOR CODING AND REIMBURSEMENT SPECIALIST CARE. RICARDO ASKED CM TO CHECK WITH [facility] AND [facility] FOR CODING AND REIMBURSEMENT SPECIALIST CARE AVAILABILITY AND RICARDO WILL TRY TO DEAL WITH PT'S CERTIFICATE OF DEPOSIT AT THE BANK THAT IS "TIED" TO A LOAN FOR A FAMILY MEMBER. CM CALLED [facility], SPOKE TO NICOLAS WHO INFORMED CM THAT THEY HAVE TRIED TO GET PT QUALIFIED FOR MEDICAID AND THAT PT'S FINANCIAL SITUATION WITH FAMILY IS COMPLICATED AND PT DOES NOT QUALIFY FOR MEDICAID AND PT IS NOT ABLE TO PAY PRIVATE PAY RATES HERSELF FOR CODING AND REIMBURSEMENT SPECIALIST CARE. CM CALLED [facility], SPOKE TO BECKY, ASKED ABOUT SHELTER CARE BEDS. BECKY ASKED ABOUT FINANCIAL ASSETS FOR POSSIBLE MEDICAID. ZONIA EXPLAINED THAT CM WAS ADVISED BY ANOTHER [facility] THAT PT DID NOT QUALIFY FOR MEDICAID. BECKY REPORTS BEDS AVAILABLE BUT THAT PT WILL NEED TO PAY [facility]FRONT PRIVATELY FOR SHELTER CARE. CM CALLED AND SPOKE TO RICARDO YA, ; ADVISED OF ABOVE INFORMATION. RICARDO WILL TALK TO [facility] IN THE MORNING, 06-28-18, AND TRY TO DEAL WITH THE CERTIFICATE OF DEPOSIT AND SEE IF SHE CAN GET PT TO QUALIFY FOR MEDICAID. CM LEFT CM CONTACT INFORMATION WITH RICARDO AND ASKED HER TO CALL CM WITH UPDATE TOMORROW. CM TO CONTINUE TO FOLLOW AND ASSIST WITH PLACEMENT FOR CODING AND REIMBURSEMENT SPECIALIST CARE. Tom Clark, CASE MANAGEMENT DCP- Discharge Planning Updated by [id number]: Arabella Jo on 06/22/18 5:[address] CM spoke with patient she agrees that she can't return to her home alone. She states she is to weak. CM attempted to contact Grand-daughter Ricardo several times today to discuss Long -term correction care. CM could not get in touch with her. Voicemail is full. CM will continue to follow and assist with discharge planning / needs. DCP- Discharge Planning Updated by [id number]: Nasrin Layne on 06/21/18 3:[address] CM received call back from Nicolas at [facility] stating they have declined patient for SNF. Nicolas states patient is out of SNF days. States she only had 59 wellness days since last SNF. They recommend [facility] placement. CM will follow up with patient / family in the morning regarding discharge planning. DCP- Discharge Planning Updated by [id number]: Nasrin Layne on 06/21/18 2:[address] CM called and spoke with Nicolas at [facility] about SNF referral. Faxed records as requested. Awaiting determination of acceptance. DCP- Discharge Planning Updated by [id number]: Mary Scruggs on 06/20/18 4:[address] Patient Name: MATHEW EMANUEL Admission Status: ER Accout number: [id number] Admission Date: 06-17-2018 : 1935 Admission Diagnosis: Attending: RUBY KAPOOR Current LOS: 3 Anticipated DC Date: 06-21-2018 Planned Disposition: Shelter Facility Primary Insurance: MEDICARE A & B Discharge Planning Comments: CM MET WITH PATIENT AND SHE STATED TO CALL HER GRANDDAUGHTER (RICARDO) TO DISCUSS HER DISCHARGE NEEDS AND PLANS. PATIENT LIVES ALONE AND HAS 1 STEP TO ENTER HOME. PATIENTS PCP IS DR. BAXTER AND USES [facility]. PATIENTS GRANDDAUGHTER STATED SHE HAD BEEN IN [facility] IN THE PAST AND WOULD LIKE FOR PATIENT TO GO THERE AT DISCHARGE. PATIENT IS CURRENT WITH [facility] PER GRANDDAUGHTER. PATIENT HAS A WHEELCHAIR, WALKER, AND SHOWER CHAIR AT HOME. PATIENT AGREED TO [facility] AND [facility] AZE[facility] WAS BY GRANDDAUGHTER (RICARDO). CM WILL FAX INFO IN THE AM TO [facility]. CM WILL CONTINUE TO FOLLOW PATIENT WITH D/C NEEDS AND PLANS. [facility]CP [facility] RICARDO (GRANDDAUGHTER) [phone] Animal Rides Manager: Mary Scruggs DCP- Discharge Planning Updated by [id number]: Kelly Faye on 06/18/18 6:[address] CM REVISITED THIS AM. THE PATIENT IS MORE AWAKE BUT VERY SHORT OF BREATH. SHE STATES SHE HAS BEEN TO A REHAB [facility] [place] ??? . SHE COULD NOT REMEBER. PERHAPS [facility] RE[facility]. SHE WILL CONSIDER SKILLED STAY AGAIN. SHE GAVE PERMISSION TO SPEAK WITH HER SISTER ,GURU. SHE STATES GURU IS A TWIN. THE TWIN SISTERS LIVE TOGETHER BUT SHE LIVES ALONE. GURU'S ADDRESS IS LISTED THE SAME THE PATIENT. PREVIOUSLY STATED A VM MESSAGE WAS LEFT. CM AWAITING CB. DCP- Discharge Planning Updated by [id number]: Kelly Faye on 06/18/18 5:[address] PATIENT CANNOT PARTICIPATE IN DISCHARGE PLANNING. OT ATTEMPTED TO TREAT TODAY WITHOUT SUCCESS SHE WAS TOO LETHARGIC. PATIENT HAD AMBULATED 130 FT W/ 30% ASSIST. SHE IS BARELY RESPONDING AT THIS TIME. ?? REPEAT CAT OF THE HEAD ?? TC TO GURU [place] THE SISTER TO THE PATIENT TO DISCUSS DISCHARGE. PATIENT NOTED TO LIVE IN THE [facility]. CM TO FOLLOW UP IN THE AM. DCPIA - Discharge Planning Initial Assessment Updated by [id number]: Mary Scruggs on 06/20/18 5:33 pm * Is the patient Alert and Oriented? Yes * How many steps to enter\\exit or inside your home? * PCP DR. BAXTER * [facility] * Preadmission Environment Home Alone * ADLs Partial Dependent * Partial ADLs (Assistance needed) Bathing Dressing Eating Medication Management * Equipment Shower Chair Walker Wheelchair * List name and contact numbers for known caregivers / representatives who currently or will assist patient after discharge: RICARDO (GRANDDAUGHTER) [phone] * Verbal permission to speak to the caregivers and representatives has been obtained from the patient. Yes * Community resources currently utilized Home Health * Please name any agencies selected above. [facility] CURRENT * Additional services required to return to the preadmission environment? Yes * Can the patient safely return to the preadmission environment? No * Has this patient been hospitalized within the prior 30 days at any hospital? No Coverage Notice Reviewer: [id number] - Mary Scruggs Notice Issued Date-Time: 06/20/2018 16:45 Notice Type: IM Discharge Notice Notice Delivered To: Family Member Relationship to Patient: Granddaughter Director Of Occupational Health Name: RICARDO AGUILAR Delivery Method: PHONE - Phone Gabrielle Days: Prior Verbal Notification: Recipient Understood Notice: Yes Recipient Signature: Med Rec Note Co-signed by Attending: Coverage Notice Comment: Reviewer: [id number] - Tom Clark Notice Issued Date-Time: 06/27/2018 16:30 Notice Type: Patient Choice Letter Notice Delivered To: Family Member Relationship to Patient: Granddaughter Director Of Occupational Health Name: RICARDO AGUILAR Delivery Method: HAND - Hand Delivered Gabrielle Days: Prior Verbal Notification: Recipient Understood Notice: Yes Recipient Signature: Yes Med Rec Note Co-signed by Attending: Coverage Notice Comment: 1- [facility], 2-[facility] FOR SHELTER CARE Last DP export: 06/28/18 7:25 Patient Name: MATHEW EMANUEL Page [id number] at 1121 All edits/amendments must be made on the electronic document DICTATION DATE: 07/02/181120 [employer] ARCHITECT: JABIER 07/02/181120 RPT#: [id number] DC DATE: STATUS: ADM IN [facility] [address] [place] [address] END OF REPORT
--- NOTE | 2018-07-02 12:42 | NUR ---
RESTING QUIETLY IN BED. DENIES NEEDS. NO CHANGES AT THIS TIME.
[2018-07-02 16:06] VITALS: BP 118/68
[2018-07-02 16:20] VITALS: BP 125/59
--- NOTE | 2018-07-02 19:04 | NUR ---
RECIEVED UP IN BED WITH EYES CLLOSED. EASILY AROUSES WITH VERBAL STIMULI. ORIENTED TO PERSON ONLY. REQUIRES ASSIST WITH TRANSFERS. UNACCESSED PORT TO LEFT CHEST. NO S/S OF DISTRESS OBSERVED. DENIES ANY NEEDS. WILL CONT POC.
[2018-07-02 20:00] VITALS: BP 108/41
[2018-07-03] VITALS: BP 112/47
[2018-07-03 04:00] VITALS: BP 120/48
[2018-07-03 07:09] LABS: BASOPHILS 0.5 % (0-2); EOSINOPHILS 2.6 % (0-7); HEMATOCRIT 33.9 % (36.0-48.0); HEMOGLOBIN 10.8 g/dL (12-16); IMMATURE GRANULOCYTES 0.5 % (0-5); LYMPHOCYTES 26.6 % (15-50); MCH 30.3 pg (26.0-34.0); MCHC 31.9 g/dL (31.0-37.0); MEAN PLATELET VOLUME 9.3 fL (7.4-10.4); MONOCYTES 8.5 % (2-11); NEUTROPHILS 61.3 % (40-80); PLATELET COUNT 339 10x3/uL (130-400); RBC 3.56 10x6/uL (4.00-5.40); RDW 14.2 % (11.5-14.5); WBC 6.6 10x3/uL (4.8-10.8)
[2018-07-03 07:14] LABS: MCV 95.2 fL (80.0-100.0)
[2018-07-03 07:32] LABS: ALBUMIN 2.8 g/dL (3.4-5.0); ANION GAP 15.9 mmol/L (8-16); BILIRUBIN - TOTAL 0.19 mg/dL (0.2-1.3); CALCIUM 8.8 mg/dL (8.5-10.1); CARBON DIOXIDE 23.2 mmol/L (21.0-32.0); CREATININE - SERUM 0.9 mg/dL (0.6-1.3); POTASSIUM - SERUM 4.1 mmol/L (3.5-5.1); PROTEIN - SERUM 6.4 g/dL (6.4-8.2)
--- NOTE | 2018-07-03 08:00 | NUR ---
ASSESSMENT COMPLETE. DISORIENTED TO TIME,PLACE AND SITUATION. WAISTBAND SETTER LOCKSTITCH SHOWING SR 73 PER TECH. LADY MAT IN USE. DENIES ANY NEEDS AT THIS TIME.
[2018-07-03 08:28] VITALS: BP 121/46
[2018-07-03 13:23] VITALS: BP 150/59
--- NOTE | 2018-07-03 15:22 | NUR ---
NO CHANGES NOTED AT THIS TIME.
[2018-07-03 16:03] VITALS: BP 122/52
--- NOTE | 2018-07-03 17:37 | NUR ---
COMPLAINING OF BACK AND SHOULDER PAIN. NORCO GIVEN.
[2018-07-03 20:00] VITALS: BP 101/39
--- NOTE | 2018-07-03 20:39 | NUR ---
THE PATIENT WAS LYING IN BED, TALKING TO STAFF WHEN STAFF ENETERED THE PATIENTS ROOM. BED IN THE LOW POSITION WITH SIDERAILS X2 AND THE CALL LIGHT WITHIN REACH. PATIENT HAS DEMONSTRATED CALL LIGHT USE. THE PATIENT HAS NO QUESTIONS OR CONCERNS AT THIS TIME.
[2018-07-04] VITALS: BP 106/49
--- NOTE | 2018-07-04 03:21 | NUR ---
TELEMETRY BATTERIES REPLACED. PATIENT UP TO RESTROOM WITH STAFF ASSIST.
[2018-07-04 04:00] VITALS: BP 118/48
[2018-07-04 06:01] LABS: BASOPHILS 0.6 % (0-2); EOSINOPHILS 2.2 % (0-7); HEMATOCRIT 33.1 % (36.0-48.0); HEMOGLOBIN 10.6 g/dL (12-16); IMMATURE GRANULOCYTES 0.4 % (0-5); LYMPHOCYTES 33.7 % (15-50); MCV 93.8 fL (80.0-100.0); MEAN PLATELET VOLUME 9.1 fL (7.4-10.4); MONOCYTES 10.1 % (2-11); PLATELET COUNT 316 10x3/uL (130-400); RBC 3.53 10x6/uL (4.00-5.40); RDW 14.1 % (11.5-14.5); WBC 6.8 10x3/uL (4.8-10.8)
[2018-07-04 06:43] LABS: ALBUMIN 2.8 g/dL (3.4-5.0); ANION GAP 15.8 mmol/L (8-16); BILIRUBIN - TOTAL 0.2 mg/dL (0.2-1.3); CALCIUM 8.6 mg/dL (8.5-10.1); CARBON DIOXIDE 23.1 mmol/L (21.0-32.0); CREATININE - SERUM 0.9 mg/dL (0.6-1.3); POTASSIUM - SERUM 3.9 mmol/L (3.5-5.1); PROTEIN - SERUM 6.4 g/dL (6.4-8.2)
--- NOTE | 2018-07-04 07:30 | NUR ---
PT RESTING COMFORTABLY IN BED, RESP EVEN AND NONLABORED ON RA. NO IV ACCESS NOTED, CALL LIGHT IN REACH, BEDSIDE RAILS X2, NAD NOTED, WILL CONTINUE PLAN OF CARE.
[2018-07-04 07:45] VITALS: BP 100/35
[2018-07-04 11:28] VITALS: BP 110/48
--- NOTE | 2018-07-04 11:31 | NUR ---
ADMINISTERED NORCO FOR PAIN LEVEL OF 8/10. PT DENIES ANY NEEDS AT THIS TIME. CALL LIGHT IN REACH, NAD NOTED, WILL CONTINUE TO MONITOR.
--- NOTE | 2018-07-04 12:44 | NUR ---
Pt is on a pureed diet. No recent documentation of po intake Ensure ordered on all trays. Spoke with pt and she reports drinking some Ensure Staff reports pt slept through breakfast but they expect her to eat lunch. Pt usually drinks Ensure per staff No recent weight and nursing reports they will get weight today Noted awaiting placement RD following
--- NOTE | 2018-07-04 14:54 | NUR ---
PT RESTING COMFORTABLY IN BED, DENIES ANY NEEDS AT THIS TIME. CALL LIGHT IN REACH, NAD NOTED, WILL CONTINUE TO MONITOR.
[2018-07-04 15:27] VITALS: BP 106/43
--- NOTE | 2018-07-04 15:30 | NUR ---
GAVE 4MG OF ZOFRAN FOR NAUSEA. PT DENIES ANY OTHER NEEDS AT THIS TIME. CALL LIGHT IN REACH, NAD NOTED, WILL CONTINUE TO MONITOR.
[2018-07-04 19:00] VITALS: BP 104/49
[2018-07-05] VITALS: BP 128/51
--- NOTE | 2018-07-05 01:30 | NUR ---
PATIENT RESTING IN BED WITH EYES CLOSED. NO SIGNS OF DISTRESS. BED IN LOWEST POSITION. SIDE RAILS UP. CALL LIGHT IN REACH. CONTINUE PLAN OF CARE.
[2018-07-05 05:13] VITALS: BP 104/48
[2018-07-05 07:19] LABS: BILIRUBIN - TOTAL 0.25 mg/dL (0.2-1.3); CALCIUM 8.8 mg/dL (8.5-10.1); CARBON DIOXIDE 21.9 mmol/L (21.0-32.0); POTASSIUM - SERUM 3.9 mmol/L (3.5-5.1); PROTEIN - SERUM 6.8 g/dL (6.4-8.2)
[2018-07-05 07:29] LABS: BASOPHILS 0.7 % (0-2); HEMATOCRIT 34.7 % (36.0-48.0); HEMOGLOBIN 11.4 g/dL (12-16); IMMATURE GRANULOCYTES 0.3 % (0-5); LYMPHOCYTES 28.4 % (15-50); MCH 30.6 pg (26.0-34.0); MCHC 32.9 g/dL (31.0-37.0); MEAN PLATELET VOLUME 9.4 fL (7.4-10.4); MONOCYTES 8.7 % (2-11); NEUTROPHILS 59.9 % (40-80); PLATELET COUNT 334 10x3/uL (130-400); RBC 3.73 10x6/uL (4.00-5.40); RDW 14.3 % (11.5-14.5); WBC 6.9 10x3/uL (4.8-10.8)
[2018-07-05 07:47] VITALS: BP 108/55
--- NOTE | 2018-07-05 08:00 | NUR ---
RECIEVED BEDSIDE REPORT. AM ROUNDS COMPLETED. VSS, PT NOT ORIENTED TO TIME AND SITUATION. PT STATES SHE FEELS NAUSEATED. ADMINISTERED PO ZOFRAN WITH AM MEDS. WILL CTM. CL IN REACH. BED IN LOW.
[2018-07-05 11:16] VITALS: BP 116/50
--- NOTE | 2018-07-05 11:49 | MORECARE ---
CASE MANAGEMENT DISCHARGE SUMMARY PATIENT: MATHEW EMANUEL UNIT: [id number] ADM DATE: 06/17/18 AGE: 82 : 37 SEX: F ROOM/BED: D.1208 AUTHOR: JOSELYNDOC PHYSICIAN: REFERRING PHYSICIAN: RUBY COLLINS MD DATE OF SERVICE: 07/05/18 Discharge Plan Patient Name: MATHEW EMANUEL Facility: [facility]:[place] : 1935 Planned Disposition: [facility] Facility Anticipated Discharge Date: 06/21/18 Discharge Date: Expected LOS: 4 Initial Reviewer: [id number] Initial Review Date: 06/20/2018 Generated: 07/05/18 12:49 pm Comments DCP- Discharge Planning Updated by [id number]: Nasrin Layne on 07/05/18 10:[address] CM attempting to reach patient's family regarding placement. CM called patient's granddaughter, Ricardo Aguilar at [phone], who was supposed to call CM on 06/29/18 about status of placement. CM left message on voice mail to return call. CM called patient's sister, Robina Winchester at [phone], attempting to reach Ricardo. Left message for Robina to return my call. CM will continue to follow and assist with discharge planning. If CM does not get a return call from family today, CM will call APS. DCP- Discharge Planning Updated by [id number]: Nasrin Layne on 07/02/18 10:[address] [facility] to check status of family making financial arrangements for placement. CM spoke with Nicolas who informed CM that no one from the family has been there to make financial arrangements. CM called patient's granddaughter, Ricardo Aguilar at [phone], who was supposed to call CM on 06/29/18 about status of placement. CM left message on voice mail to return call. CM called patient's sister, Robina Winchester at [phone], attempting to reach Ricardo. Left message for Robina to return my call. DCP- Discharge Planning Updated by [id number]: Mary Scruggs on 06/28/18 7:[address] Patient Name: MATHEW EMANUEL Admission Status: ER Accout number: [id number] Admission Date: 06-17-2018 : 1935 Admission Diagnosis:HISTORY OF FALLING Attending: RUBY KAPOOR Current LOS: 11 Anticipated DC Date: 06-21-2018 Planned Disposition: [facility] Facility Primary Insurance: MEDICARE A & B Discharge Planning Comments: CM WAS CALLED TO PATIENTS ROOM AND THE GRANDDAUGHTER (RICARDO) STATED SHE WAS FORFIETING THE CD TO PAY A LOAN AND THAT WOULD PROBABLY HELP HER GRANDMOTHER BE ACCEPTED TO [facility]. RICARDO STATED SHE IS GOING TO [facility] TOMORROW AND WILL NOTIFY KATY THE SURGEON/PRESIDENT TOMORROW REGARDING THIS SITUATION. Science Specialist: Mary Scruggs DCP- Discharge Planning Updated by [email or web address]: Tom Clark on 06/27/18 4:[address] Patient Name: MATHEW EMANUEL Encounter No: [id number] : 1935 Primary Insurance: MEDICARE A & B Anticipated DC Date: 06-21-2018 Planned Disposition: [facility] Facility External Planned Provider: [facility], AUXILIARY ENGINEER CARE MEDICAID BED DCP follow-up note: CM REVIEWED CHART WHICH INDICATES PT CANNOT HAVE [facility] REHAB DUE TO BEING OUT OF [facility] DAYS AND DID NOT HAVE 60 WELL DAYS TO OBTAIN MORE [facility] DAYS. CM SPOKE TO PT IN ROOM WHO REPORTS THAT SHE WILL DO WHATEVER RICARDO, HER GRANDDAUGHTER, THINKS IS BEST. PT REPORTS THAT RICARDO IS TRYING TO GET HER BACK TO THE GROUP HOME. CM CALLED RICARDO AGUILAR, , WHO INFORMED CM THAT SHE WAS NOT INFORMED THAT PT IS OUT OF SKILLED DAYS AND ASKED FOR OPTIONS. CM EXPLAINED THAT PT WILL NEED TO EITHER PAY FOR AUXILIARY ENGINEER CARE OR BE QUALIFIED OF MEDICAID FOR AUXILIARY ENGINEER CARE. RICARDO ASKED CM TO CHECK WITH [facility] FOR HALF-WAY CARE AVAILABILITY AND RICARDO WILL TRY TO DEAL WITH PT'S CERTIFICATE OF DEPOSIT AT THE BANK THAT IS "TIED" TO A LOAN FOR A FAMILY MEMBER. CM CALLED [facility], SPOKE TO NICOLSA WHO INFORMED CM THAT THEY HAVE TRIED TO GET PT QUALIFIED FOR MEDICAID AND THAT PT'S FINANCIAL SITUATION WITH FAMILY IS COMPLICATED AND PT DOES NOT QUALIFY FOR MEDICAID AND PT IS NOT ABLE TO PAY PRIVATE PAY RATES HERSELF FOR HALF-WAY CARE. CM CALLED [facility], SPOKE TO BECKY, ASKED ABOUT HALF-WAY CARE BEDS. BECKY ASKED ABOUT FINANCIAL ASSETS FOR POSSIBLE MEDICAID. CM EXPLAINED THAT CM WAS ADVISED BY ANOTHER GROUP HOME THAT PT DID NOT QUALIFY FOR MEDICAID. BECKY REPORTS BEDS AVAILABLE BUT THAT PT WILL NEED TO PAY UPFRONT PRIVATELY FOR HALF-WAY CARE. CM CALLED AND SPOKE TO GRANDDAUGHTER, RICARDO AGUILAR, ; ADVISED OF ABOVE INFORMATION. RICARDO WILL TALK TO [facility] IN THE MORNING, 06-28-18, AND TRY TO DEAL WITH THE CERTIFICATE OF DEPOSIT AND SEE IF SHE CAN GET PT TO QUALIFY FOR MEDICAID. CM LEFT CM CONTACT INFORMATION WITH RICARDO AND ASKED HER TO CALL CM WITH UPDATE TOMORROW. CM TO CONTINUE TO FOLLOW AND ASSIST WITH PLACEMENT FOR AUXILIARY ENGINEER CARE. Tom Clark, CASE MANAGEMENT DCP- Discharge Planning Updated by [id number]: Arabella Jo on 06/22/18 5:[address] CM spoke with patient she agrees that she can't return to her home alone. She states she is to weak. CM attempted to contact Grand-daughter Ricardo several times today to discuss Long -term care home care. CM could not get in touch with her. Voicemail is full. CM will continue to follow and assist with discharge planning / needs. DCP- Discharge Planning Updated by [id number]: Nasrin Layne on 06/21/18 3:[address] CM received call back from Nicolas at [facility] stating they have declined patient for SNF. Nicolas states patient is out of SNF days. States she only had 59 wellness days since last SNF. They recommend [facility] placement. CM will follow up with patient / family in the morning regarding discharge planning. DCP- Discharge Planning Updated by [id number]: Nasrin Layne on 06/21/18 2:[address] CM called and spoke with Nicolas at [facility] about SNF referral. Faxed records as requested. Awaiting determination of acceptance. DCP- Discharge Planning Updated by [id number]: Mary Scruggs on 06/20/18 4:[address] Patient Name: MATHEW EMANUEL Admission Status: ER Accout number: [id number] Admission Date: 06-17-2018 : 1935 Admission Diagnosis: Attending: RUBY KAPOOR Current LOS: 3 Anticipated DC Date: 06-21-2018 Planned Disposition: Mcfp Facility Primary Insurance: MEDICARE A & B Discharge Planning Comments: CM MET WITH PATIENT AND SHE STATED TO CALL HER GRANDDAUGHTER (RICARDO) TO DISCUSS HER DISCHARGE NEEDS AND PLANS. PATIENT LIVES ALONE AND HAS 1 STEP TO ENTER HOME. PATIENTS PCP IS DR. BAXTER AND USES [facility]. PATIENTS GRANDDAUGHTER STATED SHE HAD BEEN IN [facility] IN THE PAST AND WOULD LIKE FOR PATIENT TO GO THERE AT DISCHARGE. PATIENT IS CURRENT WITH [facility] PER GRANDDAUGHTER. PATIENT HAS A WHEELCHAIR, WALKER, AND SHOWER CHAIR AT HOME. PATIENT AGREED TO [facility] AND VERBAL [facility]ZE[facility] WAS BY GRANDDAUGHTER (RICARDO). CM WILL FAX INFO IN THE AM TO [facility]. CM WILL CONTINUE TO FOLLOW PATIENT WITH D/C NEEDS AND PLANS. PCP [facility] RICARDO (GRANDDAUGHTER) [phone] Science Specialist: Mary Scruggs DCP- Discharge Planning Updated by [id number]: Kelly Faye on 06/18/18 6:[address] CM REVISITED THIS AM. THE PATIENT IS MORE AWAKE BUT VERY SHORT OF BREATH. SHE STATES SHE HAS BEEN TO A REHAB PREVIOUSLY [place] ??? . SHE COULD NOT REMEBER. PERHAPS [facility]. SHE WILL CONSIDER SKILLED STAY AGAIN. SHE GAVE PERMISSION TO SPEAK WITH HER SISTER ,GURU. SHE STATES GURU IS A TWIN. THE TWIN SISTERS LIVE TOGETHER BUT SHE LIVES ALONE. GURU'S ADDRESS IS LISTED THE SAME THE PATIENT. PREVIOUSLY STATED A MESSAGE WAS LEFT. CM AWAITING CB. DCP- Discharge Planning Updated by [id number]: Kelly Faye on 06/18/18 5:[address] PATIENT CANNOT PARTICIPATE IN DISCHARGE PLANNING. OT ATTEMPTED TO TREAT TODAY WITHOUT SUCCESS SHE WAS TOO LETHARGIC. PATIENT HAD AMBULATED 130 FT W/ 30% ASSIST. SHE IS BARELY RESPONDING AT THIS TIME. ?? REPEAT CAT OF THE HEAD ?? TC TO GURU WINCHESTER THE SISTER TO THE PATIENT TO DISCUSS DISCHARGE. PATIENT NOTED TO LIVE IN THE [facility]. CM TO FOLLOW UP IN THE AM. DCPIA - Discharge Planning Initial Assessment Updated by [id number]: Mary Scruggs on 06/20/18 5:33 pm * Is the patient Alert and Oriented? Yes * How many steps to enter\\exit or inside your home? * PCP DR. BAXTER * Pharmacy [facility] * Preadmission Environment Home Alone * ADLs Partial Dependent * Partial ADLs (Assistance needed) Bathing Dressing Eating Medication Management * Equipment Shower Chair Walker Wheelchair * List name and contact numbers for known caregivers / representatives who currently or will assist patient after discharge: RICARDO (GRANDDAUGHTER) [phone] * Verbal permission to speak to the caregivers and representatives has been obtained from the patient. Yes * Community resources currently utilized Home Health * Please name any agencies selected above. [facility] CURRENT * Additional services required to return to the preadmission environment? Yes * Can the patient safely return to the preadmission environment? No * Has this patient been hospitalized within the prior 30 days at any hospital? No Coverage Notice Reviewer: [id number] Salena GraceMaryerasmo Scruggs Notice Issued Date-Time: 06/20/2018 16:45 Notice Type: IM Discharge Notice Notice Delivered To: Family Member Relationship to Patient: Granddaughter Potato Inspector Name: RICARDO BARABOO Delivery Method: PHONE - Phone Gabrielle Days: Prior Verbal Notification: Recipient Understood Notice: Yes Recipient Signature: Med Rec Note Co-signed by Attending: Coverage Notice Comment: Reviewer: [id number] - Tom Clark Notice Issued Date-Time: 06/27/2018 16:30 Notice Type: Patient Choice Letter Notice Delivered To: Family Member Relationship to Patient: Granddaughter Potato Inspector Name: RICARDO BARABOO Delivery Method: HAND - Hand Delivered Gabrielle Days: Prior Verbal Notification: Recipient Understood Notice: Yes Recipient Signature: Yes Med Rec Note Co-signed by Attending: Coverage Notice Comment: 1- [facility], 2-[facility]UX[facility]ARY ENGINEER [facility] Last DP export: 07/02/18 10:21 Patient Name: MATHEW EMANUEL Page 97771 at 1149 All edits/amendments must be made on the electronic document DICTATION DATE: 07/05/18 1148 UNIFIED COMMUNICATIONS ENGINEER: JABIER 07/05/18 1148 RPT#: [id number] DC DATE: STATUS: ADM IN [facility] [address] [place] [address] END OF REPORT
[2018-07-05 15:28] VITALS: BP 98/42
--- NOTE | 2018-07-06 01:22 | NUR ---
PATIENT COMPLAINED OF BACK PAIN 6 OF 10, GAVE TYLENOL 650 MG PO AT 01:24, EDGAR WELL,
--- NOTE | 2018-07-06 01:45 | NUR ---
PATIENT CALM AN COOPERATIVE, UP SEVERAL TIMES TO RESTROOM, USES CALL LIGHT, WILL CONTINUE TO MONITOR , CONTINUE PLAN OF CARE.
[2018-07-06 03:11] VITALS: BP 105/35
[2018-07-06 04:34] VITALS: BP 134/78
[2018-07-06 04:46] VITALS: BP 156/72
[2018-07-06 07:54] LABS: BASOPHILS 0.6 % (0-2); EOSINOPHILS 2.3 % (0-7); HEMATOCRIT 35.1 % (36.0-48.0); HEMOGLOBIN 11.1 g/dL (12-16); IMMATURE GRANULOCYTES 0.3 % (0-5); LYMPHOCYTES 28.1 % (15-50); MCH 30.1 pg (26.0-34.0); MCHC 31.6 g/dL (31.0-37.0); MEAN PLATELET VOLUME 9.3 fL (7.4-10.4); MONOCYTES 8.2 % (2-11); NEUTROPHILS 60.5 % (40-80); PLATELET COUNT 324 10x3/uL (130-400); RBC 3.69 10x6/uL (4.00-5.40); RDW 14.4 % (11.5-14.5); WBC 6.5 10x3/uL (4.8-10.8)
[2018-07-06 07:57] LABS: MCV 95.1 fL (80.0-100.0)
[2018-07-06 08:11] LABS: ALBUMIN 2.9 g/dL (3.4-5.0); ANION GAP 14.5 mmol/L (8-16); BILIRUBIN - TOTAL 0.29 mg/dL (0.2-1.3); CALCIUM 8.6 mg/dL (8.5-10.1); CARBON DIOXIDE 24.6 mmol/L (21.0-32.0); CREATININE - SERUM 0.9 mg/dL (0.6-1.3); POTASSIUM - SERUM 4.1 mmol/L (3.5-5.1); PROTEIN - SERUM 6.7 g/dL (6.4-8.2)
--- NOTE | 2018-07-06 08:30 | NUR ---
AM ROUNDS COMPLETED. SHIFT ASSESSMENT COMPLETE. INTRODUCED MYSELF TO PT PRIMARY RN FOR TODAYS SHIFT. PT IS WANTING TO SLEEP RIGHT NOW WILL EAT BREAKFAST LATER. CL IN REACH, BED IN LOWEST, SIDE RAILS X2. WILL CTM.
[2018-07-06 09:09] VITALS: BP 120/46
--- NOTE | 2018-07-06 13:22 | NUR ---
ATTEMPTED TO CALL GURU PTS SISTER WHOM IS SUPPOSE TO BE IN CHARGE OF PTS DECISION MAKING HOWEVER SHE IS YET TO ANSWER OR RETURN CALLS. CASE MANAGEMENT HAS ATTEMPTED SEVERAL TIMES AND LEFT MESSAGES. I WAS ABLE TO SPEAK TO RICARDO THE GRANDDAUGHTER YESTERDAY AND SHE TOLD ME SHE WOULD HAVE HER AUNT "GURU" CALL ME HOWEVER NOONE DID. WILL RELAY TO CM BUT PT APPEARS TO BE ABANDONED AT THIS POINT.
[2018-07-06 14:21] VITALS: BP 121/53
--- NOTE | 2018-07-06 15:03 | MORECARE ---
CASE MANAGEMENT DISCHARGE SUMMARY PATIENT: MATHEW EMANUEL UNIT: [id number] ADM DATE: 06/17/18 AGE: 82 : 37 SEX: F ROOM/BED: D.1208 AUTHOR: JOSELYN,DOC PHYSICIAN: REFERRING PHYSICIAN: RUBY COLLINS MD DATE OF SERVICE: 07/06/18 Discharge Plan Patient Name: MATHEW EMANUEL Facility: [facility]:[place] : 1935 Planned Disposition: Halfway Facility Anticipated Discharge Date: 06/21/18 Discharge Date: Expected LOS: 4 Initial Reviewer: [id number] Initial Review Date: 06/20/2018 Generated: 07/06/18 4:02 pm Comments DCP- Discharge Planning Updated by [id number]: Nasrin Layne on 07/06/18 1:[address] CM called APS and reported that patient family is not returning calls or assisting with placement arrangements. Case #[id number]. DCP- Discharge Planning Updated by [id number]: Nasrin Layne on 07/05/18 10:[address] CM attempting to reach patient's family regarding placement. CM called patient's granddaughter, Ricardo Aguilar at [phone], who was supposed to call CM on 06/29/18 about status of placement. CM left message on voice mail to return call. CM called patient's sister, Robina Winchester at [phone], attempting to reach Riacrdo. Left message for Robina to return my call. CM will continue to follow and assist with discharge planning. If CM does not get a return call from family today, CM will call APS. DCP- Discharge Planning Updated by [id number]: Nasrin Layne on 07/02/18 10:[address] CM called [facility] to check status of family making financial arrangements for placement. CM spoke with Nicolas who informed CM that no one from the family has been there to make financial arrangements. CM called patient's granddaughter, Ricardo Aguilar at [phone], who was supposed to call CM on 06/29/18 about status of placement. CM left message on voice mail to return call. CM called patient's sister, Robina Winchester at [phone], attempting to reach Ricardo. Left message for Robina to return my call. DCP- Discharge Planning Updated by [id number]: Mary Scruggs on 06/28/18 7:[address] Patient Name: MATHEW EMANUEL Admission Status: ER Accout number: [id number] Admission Date: 06-17-2018 : 1935 Admission Diagnosis:HISTORY OF FALLING Attending: RUBY KAPOOR Current LOS: 11 Anticipated DC Date: 06-21-2018 Planned Disposition: Halfway Facility Primary Insurance: MEDICARE A & B Discharge Planning Comments: CM WAS CALLED TO PATIENTS ROOM AND THE GRANDDAUGHTER (RICARDO) STATED SHE WAS FORFIETING THE CD TO PAY A LOAN AND THAT WOULD PROBABLY HELP HER GRANDMOTHER BE ACCEPTED TO [facility]. RICARDO STATED SHE IS GOING TO [facility] TOMORROW AND WILL NOTIFY KATY THE RESIDENTIAL SERVICE TECHNICIAN TOMORROW REGARDING THIS SITUATION. Count Team Clerk: Mary Scruggs DCP- Discharge Planning Updated by [id number]: Tom Clark on 06/27/18 4:[address] Patient Name: MATHEW EMANUEL Encounter No: [id number] : 1935 Primary Insurance: MEDICARE A & B Anticipated DC Date: 06-21-2018 Planned Disposition: Halfway Facility External Planned Provider: [facility], CORRECTION CARE MEDICAID BED DCP follow-up note: CM REVIEWED CHART WHICH INDICATES PT CANNOT HAVE [facility] DUE TO BEING OUT OF [facility] DAYS AND DID NOT HAVE 60 WELL DAYS TO OBTAIN MORE [facility] DAYS. CM SPOKE TO PT IN ROOM WHO REPORTS THAT SHE WILL DO WHATEVER RICARDO, HER GRANDDAUGHTER, THINKS IS BEST. PT REPORTS THAT RICARDO IS TRYING TO GET HER BACK TO THE [facility]. CM CALLED RICARDO AGUILAR, , WHO INFORMED CM THAT SHE WAS NOT INFORMED THAT PT IS OUT OF SKILLED DAYS AND ASKED FOR OPTIONS. CM EXPLAINED THAT PT WILL NEED TO EITHER PAY FOR BIT SHARPENER OPERATOR CARE OR BE QUALIFIED OF MEDICAID FOR CORRECTION CARE. RICARDO ASKED CM TO CHECK WITH [facility] AND [facility] FOR CORRECTION CARE AVAILABILITY AND RICARDO WILL TRY TO DEAL WITH PT'S CERTIFICATE OF DEPOSIT AT THE BANK THAT IS "TIED" TO A LOAN FOR A FAMILY MEMBER. CM CALLED [facility], SPOKE TO NICOLAS WHO INFORMED CM THAT THEY HAVE TRIED TO GET PT QUALIFIED FOR MEDICAID AND THAT PT'S FINANCIAL SITUATION WITH FAMILY IS COMPLICATED AND PT DOES NOT QUALIFY FOR MEDICAID AND PT IS NOT ABLE TO PAY PRIVATE PAY RATES HERSELF FOR BIT SHARPENER OPERATOR CARE. CM CALLED [facility], SPOKE TO BECKY, ASKED ABOUT CORRECTION CARE BEDS. BECKY ASKED ABOUT FINANCIAL ASSETS FOR POSSIBLE MEDICAID. CM EXPLAINED THAT CM WAS ADVISED BY ANOTHER [facility] THAT PT DID NOT QUALIFY FOR MEDICAID. BECKY REPORTS BEDS AVAILABLE BUT THAT PT WILL NEED TO PAY UPFRONT PRIVATELY FOR CORRECTION CARE. CM CALLED AND SPOKE TO GRANDDAUGHTER, RICARDO AGUILAR, ; ADVISED OF ABOVE INFORMATION. RICARDO WILL TALK TO [facility] IN THE MORNING, 06-28-18, AND TRY TO DEAL WITH THE CERTIFICATE OF DEPOSIT AND SEE IF SHE CAN GET PT TO QUALIFY FOR MEDICAID. CM LEFT CM CONTACT INFORMATION WITH RICARDO AND ASKED HER TO CALL CM WITH UPDATE TOMORROW. CM TO CONTINUE TO FOLLOW AND ASSIST WITH PLACEMENT FOR BIT SHARPENER OPERATOR CARE. Tom Clark, CASE MANAGEMENT DCP- Discharge Planning Updated by [id number]: Arabella Jo on 06/22/18 5:[address] CM spoke with patient she agrees that she can't return to her home alone. She states she is to weak. CM attempted to contact Grand-daughter Ricardo several times today to discuss Long -term long term care. CM could not get in touch with her. Voicemail is full. CM will continue to follow and assist with discharge planning / needs. DCP- Discharge Planning Updated by [id number]: Nasrin Layne on 06/21/18 3:[address] CM received [facility] from [facility] stating they have declined patient for SNF. Nicolas states patient is out of SNF days. States she only had 59 wellness days since last SNF. They recommend [facility] placement. CM will follow up with patient / family in the morning regarding discharge planning. DCP- Discharge Planning Updated by [id number]: Nasrin Layne on 06/21/18 2:[address] CM called and spoke with Nicolas at [facility] about SNF referral. Faxed records as requested. Awaiting determination of acceptance. DCP- Discharge Planning Updated by [id number]: Mary Scruggs on 06/20/18 4:[address] Patient Name: MATHEW EMANUEL Admission Status: ER Accout number: [id number] Admission Date: 06-17-2018 : 1935 Admission Diagnosis: Attending: RUBY KAPOOR Current LOS: 3 Anticipated DC Date: 06-21-2018 Planned Disposition: Halfway Facility Primary Insurance: MEDICARE A & B Discharge Planning Comments: CM MET WITH PATIENT AND SHE STATED TO CALL HER GRANDDAUGHTER (RICARDO) TO DISCUSS HER DISCHARGE NEEDS AND PLANS. PATIENT LIVES ALONE AND HAS 1 STEP TO ENTER HOME. PATIENTS PCP IS DR. BAXTER AND USES [facility]. PATIENTS GRANDDAUGHTER STATED SHE HAD BEEN IN [facility] IN THE PAST AND WOULD LIKE FOR PATIENT TO GO THERE AT DISCHARGE. PATIENT IS CURRENT WITH [facility] PER GRANDDAUGHTER. PATIENT HAS A WHEELCHAIR, WALKER, AND SHOWER CHAIR AT HOME. PATIENT AGREED TO [facility] AND [facility] WAS BY GRANDDAUGHTER (RICARDO). CM WILL FAX INFO IN THE AM TO [facility]. CM WILL CONTINUE TO FOLLOW PATIENT WITH D/C NEEDS AND PLANS. PCP DR. BAXTER [facility] RICARDO (GRANDDAUGHTER) [phone] Count Team Clerk: Mary Scruggs DCP- Discharge Planning Updated by [id number]: Kelly Faye on 06/18/18 6:[address] CM REVISITED THIS AM. THE PATIENT IS MORE AWAKE BUT VERY SHORT OF BREATH. SHE STATES SHE HAS BEEN TO A REHAB PREVI[facility]SLY [place] ??? . SHE COULD NOT REMEBER. PERHAPS [facility]. SHE WILL CONSIDER SKILLED STAY AGAIN. SHE GAVE PERMISSION TO SPEAK WITH HER SISTER ,GURU. SHE STATES GURU IS A TWIN. THE TWIN SISTERS LIVE TOGETHER BUT SHE LIVES ALONE. GURU'S ADDRESS IS LISTED THE SAME THE PATIENT. PREVIOUSLY STATED A MESSAGE WAS LEFT. CM AWAITING CB. DCP- Discharge Planning Updated by [id number]: Kelly Faye on 06/18/18 5:[address] PATIENT CANNOT PARTICIPATE IN DISCHARGE PLANNING. OT ATTEMPTED TO TREAT TODAY WITHOUT SUCCESS SHE WAS TOO LETHARGIC. PATIENT HAD AMBULATED 130 FT W/ 30% ASSIST. SHE IS BARELY RESPONDING AT THIS TIME. ?? REPEAT CAT OF THE HEAD ?? TC TO GURU WINCHESTER THE SISTER TO THE PATIENT TO DISCUSS DISCHARGE. PATIENT NOTED TO LIVE IN THE [facility]. CM TO FOLLOW UP IN THE AM. DCPIA - Discharge Planning Initial Assessment Updated by [id number]: Mary Scruggs on 06/20/18 5:33 pm * Is the patient Alert and Oriented? Yes * How many steps to enter\\exit or inside your home? * PCP DR. BAXTER * Pharmacy [facility] * Preadmission Environment Home Alone * ADLs Partial Dependent * Partial ADLs (Assistance needed) Bathing Dressing Eating Medication Management * Equipment Shower Chair Walker Wheelchair * List name and contact numbers for known caregivers / representatives who currently or will assist patient after discharge: RICARDO (GRANDDAUGHTER) [phone] * Verbal permission to speak to the caregivers and representatives has been obtained from the patient. Yes * Community resources currently utilized Home Health * Please name any agencies selected above. [facility] CURRENT * Additional services required to return to the preadmission environment? Yes * Can the patient safely return to the preadmission environment? No * Has this patient been hospitalized within the prior 30 days at any hospital? No Coverage Notice Reviewer: [id number] - Mary Scruggs Notice Issued Date-Time: 06/20/2018 16:45 Notice Type: IM Discharge Notice Notice Delivered To: Family Member Relationship to Patient: dapatrick Necktie Stitcher Name: RICARDO AGUILAR Delivery Method: PHONE - Phone Gabrielle Days: Prior Verbal Notification: Recipient Understood Notice: Yes Recipient Signature: Med Rec Note Co-signed by Attending: Coverage Notice Comment: Reviewer: [id number] - Tom Clark Notice Issued Date-Time: 06/27/2018 16:30 Notice Type: Patient Choice Letter Notice Delivered To: Family Member Relationship to Patient: dapatrick Necktie Stitcher Name: RICARDO [place] Delivery Method: HAND - Hand Delivered Gabrielle Days: Prior Verbal Notification: Recipient Understood Notice: Yes Recipient Signature: Yes Med Rec Note Co-signed by Attending: Coverage Notice Comment: 1- [facility], 2-[facility] Last DP export: 07/05/18 10:49 am Patient Name: MATHEW EMANUEL Page [id number] at 1503 All edits/amendments must be made on the electronic document DICTATION DATE: 07/06/18 1502 FLOUR MIXER: DM 07/06/18 1502 RPT#: [id number] DC DATE: STATUS: ADM IN [facility] [address] [place] [address] END OF REPORT
--- NOTE | 2018-07-06 15:20 | NUR ---
PT AWAKE AND NEEDING TO USE BR. PT VOIDED LARGE AMOUNT OF CLEAR YELLOW URINE. PT NOW RESTING BACK IN BED AND REQUESTING APPLE SAUCE AND VANILLA ENSURE AND WAS PROVIDED WITH IT. NO CURRENT NEEDS AT THIS TIME. WILL CTM.
[2018-07-06 16:45] VITALS: BP 104/40
--- NOTE | 2018-07-06 18:27 | NUR ---
PT STATES SHE HAD A GOOD DAY OVERALL. DENIES ANY CURRENT PAIN OR NEEDS. PT SLEPT MOST OF THE DAY R/T NOT SLEEPING AT NIGHT BUT STATES SHE IS FEELING GOOD AND HOPES TO DISCHARGE SOON. NO WORD FROM ANY FAMILY. WILL CONTINUE CURRENT PLAN OF CARE.
--- NOTE | 2018-07-07 01:23 | NUR ---
ASSISTED PT TO RESTROOM. PT BED LOW CALL LIGHT WITHIN REACH. WILL CONTINUE TO MONITOR.
--- NOTE | 2018-07-07 03:49 | NUR ---
PT ASLEEP. RESP EVEN AND UNLABORED. ALARM ON AND ACTIVE. PT BEDLOW AND CALL LIGHT IN REACH. NO S/S OF DISTRESS. WILL CPOC
--- NOTE | 2018-07-07 04:23 | NUR ---
PT RESTING IN BED WITH EYES CLOSED. RESPIRATIONS EVEN AND UNLABORED. BED LOW CALL LIGHT WITHIN REACH. WILL CONTINUE TO MONITOR.
[2018-07-07 05:37] VITALS: BP 108/50
[2018-07-07 08:05] VITALS: BP 117/62
--- NOTE | 2018-07-07 10:20 | NUR ---
Late entry for 07/06/18 @ 1820 Voice mail left for Robina Winchester requesting she reutrn my call regarding patient's discharge and APS being called. Robina returned my call and stated that she thought her grand-daughter had taken care of the long-term requirements. CM informed her that multiple calls have been made with multiple voice messages and neither she nor the grand-daughter were returning calls so APS was called for assistance. Robina stated she would call Lisa and find out what was going on. 1829 Lisa called stating that the patient has a CD worth 15,000 that was tied to a 20,000 loan. She stated that she called [facility] and they will not accept the patient until the CD is released. 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 CM infomred her on [facility] and educated her about the free consultation. She stated she was pulling into the parking lot to just take her grandmother home with her. CM met her and Dr. Castillo in the patient's room and Dr. Castillo said the patient is not safe to be home alone and requires 24 hour care/supervision. Lisa stated she can take off work on Monday and go the the bank and get the required paperwork. She stated the bank stated the patient has to write a statement of what she wants done with the CD. The patient is confused at times and CM is not sure a notary will sign. CM is not sure patient can write a statement. Lisa stated she will go to talk to the Bank on Monday and see what can be done. CM will continue to follow and will assist as needed with dc plans/needs. CM requested that Lisa return voice mails when left for her. She agreed and stated she had only talked with Robin and didnt recall receiving any other voice messages.
--- NOTE | 2018-07-07 10:37 | NUR ---
PATIENT IN BED, SKIN W/D TO TOUCH, COLOR PINK, RESP. REGULAR AND EVEN AT 18. ABDOMEN SOFT WITH BS + IN ALL 4 QUADS. LUNGS CLEAR. PATIENT DENIES ANY C/O PAIN WHEN ASKED. C/L WITHIN REACH AND SR'S UP X'S 2 WITH BED IN LOWEST POSITION.
[2018-07-07 11:32] VITALS: BP 110/54
[2018-07-07 15:43] VITALS: BP 104/46
[2018-07-07 20:30] VITALS: BP 117/65
--- NOTE | 2018-07-07 20:30 | NUR ---
ENTERED ROOM IN RESPONSE TO CALL LIGHT. ASSISTED TO RESTROOM. PT VOIDED AND HAD A BM, MEDIUM BROWN, NOT FORMED.
--- NOTE | 2018-07-07 22:30 | NUR ---
PT PASSED ANOTHER, SEMIFORMED BM.
[2018-07-07 23:46] VITALS: BP 133/73
--- NOTE | 2018-07-08 00:30 | NUR ---
ENTERED ROOM IN RESPONSE TO CL. ASSISTED TO BATHROOM, PT VOIDED CLEAR YELLOW URINE.
--- NOTE | 2018-07-08 01:59 | NUR ---
VOIDED CLEAR YELLOW URINE. STATES SHE DOES NOT KNOW WHY SHE HASN'T BEEN ABLE TO SLEEP TONIGHT.
[2018-07-08 03:32] VITALS: BP 136/64
--- NOTE | 2018-07-08 05:37 | NUR ---
ASSISTED TO RESTROOM, VOIDED CLEAR YELLOW URINE. REPORTS BACK PAIN, BUT STATES SHE'LL WAIT UNTIL NEXT DOSE OF TYLENOL FOR RELIEF.
[2018-07-08 07:29] LABS: BASOPHILS 0.6 % (0-2); EOSINOPHILS 1.8 % (0-7); HEMOGLOBIN 11.3 g/dL (12-16); IMMATURE GRANULOCYTES 0.2 % (0-5); LYMPHOCYTES 27.7 % (15-50); MCH 30.3 pg (26.0-34.0); MCHC 32.3 g/dL (31.0-37.0); MCV 93.8 fL (80.0-100.0); NEUTROPHILS 61.7 % (40-80); PLATELET COUNT 284 10x3/uL (130-400); RBC 3.73 10x6/uL (4.00-5.40); RDW 13.9 % (11.5-14.5); WBC 6.7 10x3/uL (4.8-10.8)
[2018-07-08 07:43] LABS: ANION GAP 18.4 mmol/L (8-16); CALCIUM 8.4 mg/dL (8.5-10.1); CARBON DIOXIDE 19.4 mmol/L (21.0-32.0); CREATININE - SERUM 0.8 mg/dL (0.6-1.3); POTASSIUM - SERUM 3.8 mmol/L (3.5-5.1)
[2018-07-08 14:06] VITALS: BP 128/72; BP 131/67
--- NOTE | 2018-07-08 17:23 | NUR ---
PATIENT AMBULATED TO BR AND HAD SMALL BM AND VOIDED, C/O RIGHT SHOULDER DISCOMFORT TYLENOL 325MG 2 PO GIVEN. PATIENT'S SUPPER TRAY SERVED AND SHE REQUESTED PUDDING AND GIVEN. C/L WITHIN REACH AND SR'S UP X'S 2.
--- NOTE | 2018-07-08 20:30 | NUR ---
C/O PAIN TO RIGHT SHOULDER. NO SWELLING OR DISCOLORATION NOTED. WARM PAD APPLIED FOR 30 MINUTES, PT VERBALIZES RELIEF.
[2018-07-08 20:43] VITALS: BP 97/58
[2018-07-08 23:50] VITALS: BP 150/77
--- NOTE | 2018-07-09 00:01 | NUR ---
SOFT BM, CLEAR YELLOW URINE. PT VERBALIZES CONCERNS FOR GOING TO RETIREMENT AND LEAVING HER HOME. PT IS AGAINST MOVING AND IS SEARCHING FOR OTHER WAYS TO STAY LIVING IN HER HOME.
[2018-07-09 05:20] VITALS: BP 137/79
--- NOTE | 2018-07-09 07:55 | NUR ---
PT EATING BREAKFAST, DENIES ANY NEEDS AT THIS TIME. CALL LIGHT IN REACH, LADY ALARM IN PLACE, BEDSIDE RAILS X2, NAD NOTED.
[2018-07-09 08:02] LABS: BASOPHILS 0.7 % (0-2); EOSINOPHILS 1.3 % (0-7); HEMATOCRIT 36.4 % (36.0-48.0); HEMOGLOBIN 11.6 g/dL (12-16); IMMATURE GRANULOCYTES 0.4 % (0-5); LYMPHOCYTES 24.2 % (15-50); MCH 29.7 pg (26.0-34.0); MCHC 31.9 g/dL (31.0-37.0); MCV 93.3 fL (80.0-100.0); MEAN PLATELET VOLUME 9.5 fL (7.4-10.4); MONOCYTES 7.6 % (2-11); NEUTROPHILS 65.8 % (40-80); PLATELET COUNT 327 10x3/uL (130-400); RDW 13.8 % (11.5-14.5); WBC 7.7 10x3/uL (4.8-10.8)
[2018-07-09 08:24] VITALS: BP 127/42
[2018-07-09 08:24] LABS: ANION GAP 16.5 mmol/L (8-16); CARBON DIOXIDE 23.3 mmol/L (21.0-32.0); CREATININE - SERUM 0.8 mg/dL (0.6-1.3); POTASSIUM - SERUM 3.8 mmol/L (3.5-5.1)
--- NOTE | 2018-07-09 11:12 | NUR ---
PT RESTING IN BED. NO SIGNS OF DISTRESS. HAS NO IV. LADY ALARM ON. AWAITING PLACEMENT FOR PT. DENIES ANY NEED AT THIS TIME. CALL LIGHT IN REACH. BED LOW POSITION.
[2018-07-09 13:00] VITALS: BP 104/55
--- NOTE | 2018-07-09 13:03 | MORECARE ---
CASE MANAGEMENT DISCHARGE SUMMARY PATIENT: MATHEW EMANUEL UNIT: [id number] ADM DATE: 06/17/18 AGE: 82 : 37 SEX: F ROOM/BED: D.1208 AUTHOR: JOSELYNDOC PHYSICIAN: REFERRING PHYSICIAN: RUBY COLLINS MD DATE OF SERVICE: 07/09/18 Discharge Plan Patient Name: MATHEW EMANUEL Facility: [facility]:[place] : 1935 Planned Disposition: [facility] Facility Anticipated Discharge Date: 06/21/18 Discharge Date: Expected LOS: 4 Initial Reviewer: [id number] Initial Review Date: 06/20/2018 Generated: 07/09/18 2:03 pm Comments DCP- Discharge Planning Updated by [id number]: Nasrin Layne on 07/06/18 1:[address] CM called APS and reported that patient family is not returning calls or assisting with placement arrangements. Case #[id number]. DCP- Discharge Planning Updated by [id number]: Nasrin Layne on 07/05/18 10:[address] CM attempting to reach patient's family regarding placement. CM called patient's granddaughter, Ricardo Aguilar at [phone], who was supposed to call CM on 06/29/18 about status of placement. CM left message on voice mail to return call. CM called patient's sister, Robina Winchester at [phone], attempting to reach Ricardo. Left message for Robina to return my call. CM will continue to follow and assist with discharge planning. If CM does not get a return call from family today, CM will call APS. DCP- Discharge Planning Updated by [id number]: Nasrin Layne on 07/02/18 10:[address] CM called [facility] to check status of family making financial arrangements for placement. CM spoke with Nicolas who informed CM that no one from the family has been there to make financial arrangements. CM called patient's granddaughter, Ricardo Aguilar at [phone], who was supposed to call CM on 06/29/18 about status of placement. CM left message on voice mail to return call. CM called patient's sister, Robina Winchester at [phone], attempting to reach Ricardo. Left message for Robina to return my call. DCP- Discharge Planning Updated by [id number]: Mary Scruggs on 06/28/18 7:[address] Patient Name: MATHEW EMANUEL Admission Status: ER Accout number: [id number] Admission Date: 06-17-2018 : 1935 Admission Diagnosis:HISTORY OF FALLING Attending: RUBY KAPOOR Current LOS: 11 Anticipated DC Date: 06-21-2018 Planned Disposition: [facility] Facility Primary Insurance: MEDICARE A & B Discharge Planning Comments: CM WAS CALLED TO PATIENTS ROOM AND THE GRANDDAUGHTER (RICARDO) STATED SHE WAS FORFIETING THE CD TO PAY A LOAN AND THAT WOULD PROBABLY HELP HER GRANDMOTHER BE ACCEPTED TO [facility]. RICARDO STATED SHE IS GOING TO [facility] TOMORROW AND WILL NOTIFY KATY THE CAMP HOUSEKEEPER TOMORROW REGARDING THIS SITUATION. Wellness Manager: Mary Scruggs DCP- Discharge Planning Updated by [id number]: Tom Clark on 06/27/18 4:[address] Patient Name: MATHEW EMANUEL Encounter No: [id number] : 1935 Primary Insurance: MEDICARE A & B Anticipated DC Date: 06-21-2018 Planned Disposition: [facility] Facility External Planned Provider: [facility], ASSISTED CARE MEDICAID BED DCP follow-up note: CM REVIEWED CHART WHICH INDICATES PT CANNOT HAVE CARE HOME REHAB DUE TO BEING OUT OF CARE HOME DAYS AND DID NOT HAVE 60 WELL DAYS TO OBTAIN MORE CARE HOME DAYS. CM SPOKE TO PT IN ROOM WHO REPORTS THAT SHE WILL DO WHATEVER RICARDO, HER GRANDDAUGHTER, THINKS IS BEST. PT REPORTS THAT RICARDO IS TRYING TO GET HER BACK TO THE [facility]. CM CALLED RICARDO AGUILAR, , WHO INFORMED CM THAT SHE WAS NOT INFORMED THAT PT IS OUT OF SKILLED DAYS AND ASKED FOR OPTIONS. CM EXPLAINED THAT PT WILL NEED TO EITHER PAY FOR [facility] DEPARTMENT CARE OR BE QUALIFIED OF MEDICAID FOR ASSISTED CARE. RICARDO ASKED CM TO CHECK WITH [facility] AND [facility] FOR ASSISTED CARE AVAILABILITY AND RICARDO WILL TRY TO DEAL WITH PT'S CERTIFICATE OF DEPOSIT AT THE BANK THAT IS "TIED" TO A LOAN FOR A FAMILY MEMBER. CM CALLED [facility], SPOKE TO NICOLAS WHO INFORMED CM THAT THEY HAVE TRIED TO GET PT QUALIFIED FOR MEDICAID AND THAT PT'S FINANCIAL SITUATION WITH FAMILY IS COMPLICATED AND PT DOES NOT QUALIFY FOR MEDICAID AND PT IS NOT ABLE TO PAY PRIVATE PAY RATES HERSELF FOR [facility] DEPARTMENT CARE. CM CALLED [facility], SPOKE TO BECKY, ASKED ABOUT ASSISTED CARE BEDS. BECKY ASKED ABOUT FINANCIAL ASSETS FOR POSSIBLE MEDICAID. CM EXPLAINED THAT CM WAS ADVISED BY ANOTHER [facility] THAT PT DID NOT QUALIFY FOR MEDICAID. BECKY REPORTS BEDS AVAILABLE BUT THAT PT WILL NEED TO PAY UPFRONT PRIVATELY FOR ASSISTED CARE. CM CALLED AND SPOKE TO GRANDDAUGHTER, RICARDO AGUILAR, ; ADVISED OF ABOVE INFORMATION. RICARDO WILL TALK TO [facility] IN THE MORNING, 06-28-18, AND TRY TO DEAL WITH THE CERTIFICATE OF DEPOSIT AND SEE IF SHE CAN GET PT TO QUALIFY FOR MEDICAID. CM LEFT CM CONTACT INFORMATION WITH RICARDO AND ASKED HER TO CALL CM WITH UPDATE TOMORROW. CM TO CONTINUE TO FOLLOW AND ASSIST WITH PLACEMENT FOR [facility] DEPARTMENT CARE. Tom Clark, CASE MANAGEMENT DCP- Discharge Planning Updated by [id number]: Arabella Jo on 06/22/18 5:[address] CM spoke with patient she agrees that she can't return to her home alone. She states she is to weak. CM attempted to contact Grand-daughter Ricardo several times today to discuss Long -term snf care. CM could not get in touch with her. Voicemail is full. CM will continue to follow and assist with discharge planning / needs. DCP- Discharge Planning Updated by [id number]: Nasrin Layne on 06/21/18 3:[address] CM received call back from [facility] at [facility] stating they have declined patient for SNF. Nicolas states patient is out of SNF days. States she only had 59 wellness days since last SNF. They recommend [facility] placement. CM will follow up with patient / family in the morning regarding discharge planning. DCP- Discharge Planning Updated by [id number]: Nasrin Layne on 06/21/18 2:[address] CM called and spoke with Nicolas at [facility] about SNF referral. Faxed records as requested. Awaiting determination of acceptance. DCP- Discharge Planning Updated by [id number]: Mary Scruggs on 06/20/18 4:[address] Patient Name: MATHEW EMANUEL Admission Status: ER Accout number: [id number] Admission Date: 06-17-2018 : 1935 Admission Diagnosis: Attending: RUBY KAPOOR Current LOS: 3 Anticipated DC Date: 06-21-2018 Planned Disposition: [facility] Facility Primary Insurance: MEDICARE A & B Discharge Planning Comments: CM MET WITH PATIENT AND SHE STATED TO CALL HER GRANDDAUGHTER (RICARDO) TO DISCUSS HER DISCHARGE NEEDS AND PLANS. PATIENT LIVES ALONE AND HAS 1 STEP TO ENTER HOME. PATIENTS PCP IS DR. BAXTER AND USES [facility]. PATIENTS GRANDDAUGHTER STATED SHE HAD BEEN IN [facility] IN THE PAST AND WOULD LIKE FOR PATIENT TO GO THERE AT DISCHARGE. PATIENT IS CURRENT WITH [facility] PER GRANDDAUGHTER. PATIENT HAS A WHEELCHAIR, WALKER, AND SHOWER CHAIR AT HOME. PATIENT AGREED TO [facility] AND VERBAL AZEEM WAS BY GRANDDAUGHTER (RICARDO). CM WILL FAX INFO IN THE AM TO [facility]. CM WILL CONTINUE TO FOLLOW PATIENT WITH D/C NEEDS AND PLANS. PCP DR[facility] BAXTER [facility] RICARDO (GRANDDAUGHTER) [phone] Wellness Manager: Mary Scruggs DCP- Discharge Planning Updated by [id number]: Kelly Faye on 06/18/18 6:[address] CM REVISITED THIS AM. THE PATIENT IS MORE AWAKE BUT VERY SHORT OF BREATH. SHE STATES SHE HAS BEEN TO A REHAB PREVIOUSLY [place] ??? . SHE COULD NOT REMEBER. PERHAPS [facility]. SHE WILL CONSIDER SKILLED STAY AGAIN. SHE GAVE PERMISSION TO SPEAK WITH HER SISTER ,GURU. SHE STATES GURU IS A TWIN. THE TWIN SISTERS LIVE TOGETHER BUT SHE LIVES ALONE. GURU'S ADDRESS IS LISTED THE SAME THE PATIENT. PREVIOUSLY STATED A MESSAGE WAS LEFT. CM AWAITING CB. DCP- Discharge Planning Updated by [id number]: Kelly Faye on 06/18/18 5:[address] PATIENT CANNOT PARTICIPATE IN DISCHARGE PLANNING. OT ATTEMPTED TO TREAT TODAY WITHOUT SUCCESS SHE WAS TOO LETHARGIC. PATIENT HAD AMBULATED 130 FT W/ 30% ASSIST. SHE IS BARELY RESPONDING AT THIS TIME. ?? REPEAT CAT OF THE HEAD ?? TC TO GURU [place] THE SISTER TO THE PATIENT TO DISCUSS DISCHARGE. PATIENT NOTED TO LIVE IN THE [facility]. CM TO FOLLOW UP IN THE AM. DCPIA - Discharge Planning Initial Assessment Updated by [id number]: Mary Scruggs on 06/20/18 5:33 pm * Is the patient Alert and Oriented? Yes * How many steps to enter\\exit or inside your home? * PCP DR. BAXTER * Pharmacy [facility] * Preadmission Environment Home Alone * ADLs Partial Dependent * Partial ADLs (Assistance needed) Bathing Dressing Eating Medication Management * Equipment Shower Chair Walker Wheelchair * List name and contact numbers for known caregivers / representatives who currently or will assist patient after discharge: RICARDO (GRANDDAUGHTER) [phone] * Verbal permission to speak to the caregivers and representatives has been obtained from the patient. Yes * Community resources currently utilized Home Health * Please name any agencies selected above. [facility] CURRENT * Additional services required to return to the preadmission environment? Yes * Can the patient safely return to the preadmission environment? No * Has this patient been hospitalized within the prior 30 days at any hospital? No External Providers External Provider: OTHER-OTHER Next Contact Date: Service Request Date: Service Type: Resolution: Reviewer: Comments: Coverage Notice Reviewer: [id number] - Mary Scruggs Notice Issued Date-Time: 06/20/2018 16:45 Notice Type: IM Discharge Notice Notice Delivered To: Family Member Relationship to Patient: Rosa Wet Plant Operator Name: RICARDO BIG PINE KEY Delivery Method: PHONE - Phone Gabrielle Days: Prior Verbal Notification: Recipient Understood Notice: Yes Recipient Signature: Med Rec Note Co-signed by Attending: Coverage Notice Comment: Reviewer: [id number] - Tom Clark Notice Issued Date-Time: 06/27/2018 16:30 Notice Type: Patient Choice Letter Notice Delivered To: Family Member Relationship to Patient: dapatrick Wet Plant Operator Name: RICARDO BIG PINE KEY Delivery Method: HAND - Hand Delivered Gabrielle Days: Prior Verbal Notification: Recipient Understood Notice: Yes Recipient Signature: Yes Med Rec Note Co-signed by Attending: Coverage Notice Comment: 1- ALDEN PATEL, 2-[facility] FOR ASSISTED CARE Last DP export: 07/06/18 2:02 pm Patient Name: MATHEW EMANUEL Page [id number] at 1303 All edits/amendments must be made on the electronic document DICTATION DATE: 07/09/18 1303 SLEEPING BAG FILLER: JABIER 07/09/18 1303 RPT#: [id number] DC DATE: STATUS: ADM IN [facility] [address] [place] [id number] END OF REPORT
--- NOTE | 2018-07-09 13:19 | MORECARE ---
CASE MANAGEMENT DISCHARGE SUMMARY PATIENT: MATHEW EMANUEL UNIT: [id number] ADM DATE: 06/17/18 AGE: 82 : 37 SEX: F ROOM/BED: D.1208 AUTHOR: JOSELYNDOC PHYSICIAN: REFERRING PHYSICIAN: RUBY COLLINS MD DATE OF SERVICE: 07/09/18 Discharge Plan Patient Name: MATHEW EMANUEL Facility: [facility]:[place] : 1935 Planned Disposition: Long Term Facility Anticipated Discharge Date: 06/21/18 Discharge Date: Expected LOS: 4 Initial Reviewer: [id number] Initial Review Date: 06/20/2018 Generated: 07/09/18 2:18 pm Comments DCP- Discharge Planning Updated by [id number]: Nasrin Layne on 07/06/18 1:[address] CM called APS and reported that patient family is not returning calls or assisting with placement arrangements. Case #[id number]. DCP- Discharge Planning Updated by [id number]: Nasrin Layne on 07/05/18 10:[address] CM attempting to reach patient's family regarding placement. CM called patient's granddaughter, Ricardo Aguilar at [phone], who was supposed to call CM on 06/29/18 about status of placement. CM left message on voice mail to return call. CM called patient's sister, Robina Winchester at [phone], attempting to reach Ricardo. Left message for Robina to return my call. CM will continue to follow and assist with discharge planning. If CM does not get a return call from family today, CM will call APS. DCP- Discharge Planning Updated by [id number]: Nasrin Layne on 07/02/18 10:[address] CM called [facility] to check status of family making financial arrangements for placement. CM spoke with Nicolas who informed CM that no one from the family has been there to make financial arrangements. CM called patient's granddaughter, Ricardo Aguilar at [phone], who was supposed to call CM on 06/29/18 about status of placement. CM left message on voice mail to return call. CM called patient's sister, Robina Winchester at [phone], attempting to reach Ricardo. Left message for Robina to return my call. DCP- Discharge Planning Updated by [id number]: Mary Scruggs on 06/28/18 7:[address] Patient Name: MATHEW EMANUEL Admission Status: ER Accout number: [id number] Admission Date: 06-17-2018 : 1935 Admission Diagnosis:HISTORY OF FALLING Attending: RUBY KAPOOR Current LOS: 11 Anticipated DC Date: 06-21-2018 Planned Disposition: Long Term Facility Primary Insurance: MEDICARE A & B Discharge Planning Comments: CM WAS CALLED TO PATIENTS ROOM AND THE GRANDDAUGHTER (RICARDO) STATED SHE WAS FORFIETING THE CD TO PAY A LOAN AND THAT WOULD PROBABLY HELP HER GRANDMOTHER BE ACCEPTED TO [facility]. RICARDO STATED SHE IS GOING TO [facility] TOMORROW AND WILL NOTIFY KATY THE PRODUCT DEVELOPMENT TOMORROW REGARDING THIS SITUATION. Forge Shop Supervisor: Mary Scruggs DCP- Discharge Planning Updated by [id number]: Tom Clark on 06/27/18 4:[address] Patient Name: MATHEW EMANUEL Encounter No: [id number] : 1935 Primary Insurance: MEDICARE A & B Anticipated DC Date: 06-21-2018 Planned Disposition: Long Term Facility External Planned Provider: [facility], SNF CARE MEDICAID BED DCP follow-up note: CM REVIEWED CHART WHICH INDICATES PT CANNOT HAVE [facility] RE[facility]AB DUE TO BEING OUT OF [facility] DAYS AND DID NOT HAVE 60 WELL DAYS TO OBTAIN MORE [facility] DAYS. CM SPOKE TO PT IN ROOM WHO REPORTS THAT SHE WILL DO WHATEVER RICARDO, HER GRANDDAUGHTER, THINKS IS BEST. PT REPORTS THAT RICARDO IS TRYING TO GET HER BACK TO THE [facility]. CM CALLED RICARDO AGUILAR, , WHO INFORMED CM THAT SHE WAS NOT INFORMED THAT PT IS OUT OF SKILLED DAYS AND ASKED FOR OPTIONS. CM EXPLAINED THAT PT WILL NEED TO EITHER PAY FOR AUTO SELF SERVICE STATION ATTENDANT CARE OR BE QUALIFIED OF MEDICAID FOR SNF CARE. RICARDO ASKED CM TO CHECK WITH [facility] AND [facility] FOR SNF CARE AVAILABILITY AND RICARDO WILL TRY TO DEAL WITH PT'S CERTIFICATE OF DEPOSIT AT THE BANK THAT IS "TIED" TO A LOAN FOR A FAMILY MEMBER. CM CALLED [facility], SPOKE TO NICOLAS WHO INFORMED CM THAT THEY HAVE TRIED TO GET PT QUALIFIED FOR MEDICAID AND THAT PT'S FINANCIAL SITUATION WITH FAMILY IS COMPLICATED AND PT DOES NOT QUALIFY FOR MEDICAID AND PT IS NOT ABLE TO PAY PRIVATE PAY RATES HERSELF FOR AUTO SELF SERVICE STATION ATTENDANT CARE. CM CALLED [facility], SPOKE TO BECKY, ASKED ABOUT SNF CARE BEDS. BECKY ASKED ABOUT FINANCIAL ASSETS FOR POSSIBLE MEDICAID. CM EXPLAINED THAT CM WAS ADVISED BY ANOTHER [facility] THAT PT DID NOT QUALIFY FOR MEDICAID. BECKY REPORTS BEDS AVAILABLE BUT THAT PT WILL NEED TO PAY UPFRONT PRIVATELY FOR SNF CARE. CM CALLED AND SPOKE TO GRANDDAUGHTER, RICARDO AGUILAR, ; ADVISED OF ABOVE INFORMATION. RICARDO WILL TALK TO [facility] IN THE MORNING, 06-28-18, AND TRY TO DEAL WITH THE CERTIFICATE OF DEPOSIT AND SEE IF SHE CAN GET PT TO QUALIFY FOR MEDICAID. CM LEFT CM CONTACT INFORMATION WITH RICARDO AND ASKED HER TO CALL CM WITH UPDATE TOMORROW. CM TO CONTINUE TO FOLLOW AND ASSIST WITH PLACEMENT FOR AUTO SELF SERVICE STATION ATTENDANT CARE. Tom Clark, CASE MANAGEMENT DCP- Discharge Planning Updated by [id number]: Arabella Jo on 06/22/18 5:[address] CM spoke with patient she agrees that she can't return to her home alone. She states she is to weak. CM attempted to contact Grand-daughter Ricardo several times today to discuss Long -term halfway care. CM could not get in touch with her. Voicemail is full. CM will continue to follow and assist with discharge planning / needs. DCP- Discharge Planning Updated by [id number]: Nasrin Layne on 06/21/18 3:[address] CM received call back from [facility] at [facility] stating they have declined patient for SNF. Nicolas states patient is out of SNF days. States she only had 59 wellness days since last SNF. They recommend [facility] placement. CM will follow up with patient / family in the morning regarding discharge planning. DCP- Discharge Planning Updated by [id number]: Nasrin Layne on 06/21/18 2:[address] CM called and spoke with Nicolas at [facility] about SNF referral. Faxed records as requested. Awaiting determination of acceptance. DCP- Discharge Planning Updated by [id number]: Mary Scruggs on 06/20/18 4:[address] Patient Name: MATHEW EMANUEL Admission Status: ER Accout number: [id number] Admission Date: 06-17-2018 : 1935 Admission Diagnosis: Attending: RUBY KAPOOR Current LOS: 3 Anticipated DC Date: 06-21-2018 Planned Disposition: Long Term Facility Primary Insurance: MEDICARE A & B Discharge Planning Comments: CM MET WITH PATIENT AND SHE STATED TO CALL HER GRANDDAUGHTER (RICARDO) TO DISCUSS HER DISCHARGE NEEDS AND PLANS. PATIENT LIVES ALONE AND HAS 1 STEP TO ENTER HOME. PATIENTS PCP IS DR. BAXTER AND USES [facility]. PATIENTS GRANDDAUGHTER STATED SHE HAD BEEN IN [facility] IN THE PAST AND WOULD LIKE FOR PATIENT TO GO THERE AT DISCHARGE. PATIENT IS CURRENT WITH [facility] PER GRANDDAUGHTER. PATIENT HAS A WHEELCHAIR, WALKER, AND SHOWER CHAIR AT HOME. PATIENT AGREED TO [facility] AND VERBAL AZEEM WAS BY GRANDDAUGHTER (RICARDO). CM WILL FAX INFO IN THE AM TO [facility]. CM WILL CONTINUE TO FOLLOW PATIENT WITH D/C NEEDS AND PLANS. PCP DR. BAXTER [facility] RICARDO (GRANDDAUGHTER) [phone] Forge Shop Supervisor: Mary Scruggs DCP- Discharge Planning Updated by [id number]: Kelly Faye on 06/18/18 6:[address] CM REVISITED THIS AM. THE PATIENT IS MORE AWAKE BUT VERY SHORT OF BREATH. SHE STATES SHE HAS BEEN TO A REHAB [facility] [place] ??? . SHE COULD NOT REMEBER. PERHAPS [facility]. SHE WILL CONSIDER SKILLED STAY AGAIN. SHE GAVE PERMISSION TO SPEAK WITH HER SISTER ,GURU. SHE STATES GURU IS A TWIN. THE TWIN SISTERS LIVE TOGETHER BUT SHE LIVES ALONE. GURU'S ADDRESS IS LISTED THE SAME THE PATIENT. PREVIOUSLY STATED A MESSAGE WAS LEFT. CM AWAITING CB. DCP- Discharge Planning Updated by [id number]: Kelly Faye on 06/18/18 5:[address] PATIENT CANNOT PARTICIPATE IN DISCHARGE PLANNING. OT ATTEMPTED TO TREAT TODAY WITHOUT SUCCESS SHE WAS TOO LETHARGIC. PATIENT HAD AMBULATED 130 FT W/ 30% ASSIST. SHE IS BARELY RESPONDING AT THIS TIME. ?? REPEAT CAT OF THE HEAD ?? TC TO GURU WINCHESTER THE SISTER TO THE PATIENT TO DISCUSS DISCHARGE. PATIENT NOTED TO LIVE IN THE [facility]. CM TO FOLLOW UP IN THE AM. DCPIA - Discharge Planning Initial Assessment Updated by [id number]: Mary Scruggs on 06/20/18 5:33 pm * Is the patient Alert and Oriented? Yes * How many steps to enter\\exit or inside your home? * PCP DR. BAXTER * Pharmacy [facility] * Preadmission Environment Home Alone * ADLs Partial Dependent * Partial ADLs (Assistance needed) Bathing Dressing Eating Medication Management * Equipment Shower Chair Walker Wheelchair * List name and contact numbers for known caregivers / representatives who currently or will assist patient after discharge: RICARDO (GRANDDAUGHTER) [phone] * Verbal permission to speak to the caregivers and representatives has been obtained from the patient. Yes * Community resources currently utilized Home Health * Please name any agencies selected above. [facility] CURRENT * Additional services required to return to the preadmission environment? Yes * Can the patient safely return to the preadmission environment? No * Has this patient been hospitalized within the prior 30 days at any hospital? No External Providers External Provider: OTHER-OTHER Next Contact Date: Service Request Date: Service Type: Resolution: Reviewer: Comments: Coverage Notice Reviewer: [id number] - Mary Scruggs Notice Issued Date-Time: 06/20/2018 16:45 Notice Type: IM Discharge Notice Notice Delivered To: Family Member Relationship to Patient: Rosa Hitch Technician Name: RICARDO GERVAIS Delivery Method: PHONE - Phone Gabrielle Days: Prior Verbal Notification: Recipient Understood Notice: Yes Recipient Signature: Med Rec Note Co-signed by Attending: Coverage Notice Comment: Reviewer: [id number] - Tom Clark Notice Issued Date-Time: 06/27/2018 16:30 Notice Type: Patient Choice Letter Notice Delivered To: Family Member Relationship to Patient: dapatrick Hitch Technician Name: RICARDO GERVAIS Delivery Method: HAND - Hand Delivered Gabrielle Days: Prior Verbal Notification: Recipient Understood Notice: Yes Recipient Signature: Yes Med Rec Note Co-signed by Attending: Coverage Notice Comment: 1- [facility], 2-[facility] Last DP export: 07/09/18 12:03 pm Patient Name: MATHEW EMANUEL Page 19882 at 1319 All edits/amendments must be made on the electronic document DICTATION DATE: 07/09/181317 UMBRELLA TIPPER MACHINE: JABIER 07/09/188 RPT#: [id number] DC DATE: STATUS: ADM IN [facility] [address] [place] [address] END OF REPORT
--- NOTE | 2018-07-09 15:36 | MORECARE ---
CASE MANAGEMENT DISCHARGE SUMMARY PATIENT: MATHEW EMANUEL UNIT: [id number] ADM DATE: 06/17/18 AGE: 82 : 37 SEX: F ROOM/BED: D.1208 AUTHOR: JOSELYN,DOC PHYSICIAN: REFERRING PHYSICIAN: RUBY COLLINS MD DATE OF SERVICE: 07/09/18 Discharge Plan Patient Name: MATHEW EMANUEL Facility: [facility]:[place] : 1935 Planned Disposition: Mcc Facility Anticipated Discharge Date: 06/21/18 Discharge Date: Expected LOS: 4 Initial Reviewer: [id number] Initial Review Date: 06/20/2018 Generated: 07/09/18 4:36 pm Comments DCP- Discharge Planning Updated by [id number]: Nasrin Layne on 07/09/18 2:[address] CM received call from Daniel Mckeon with APS about patient. CM reported to Daniel that CM had attempted to reach family several times without returned calls regarding discharge planning. That family told CM that they were working with [facility] on making financial arrangements for placement, but [facility] states that no family has ever come to the facility to make arrangements. CM faxed records as requested to Daniel at [phone] (cell [phone]) DCP- Discharge Planning Updated by [id number]: Nasrin Layne on 07/06/18 1:[address] CM called APS and reported that patient family is not returning calls or assisting with placement arrangements. Case #[id number]. DCP- Discharge Planning Updated by [id number]: Nasrin Layne on 07/05/18 10:[address] CM attempting to reach patient's family regarding placement. CM called patient's granddaughter, Ricardo Aguilar at [phone], who was supposed to call CM on 06/29/18 about status of placement. CM left message on voice mail to return call. CM called patient's sister, Robina Winchester at [phone], attempting to reach Ricardo. Left message for Robina to return my call. CM will continue to follow and assist with discharge planning. If CM does not get a return call from family today, CM will call APS. DCP- Discharge Planning Updated by [id number]: Nasrin Layne on 07/02/18 10:[address] CM called [facility] to check status of family making financial arrangements for placement. CM spoke with Nicolas who informed CM that no one from the family has been there to make financial arrangements. CM called patient's granddaughter, Ricardo Aguilar at [phone], who was supposed to call CM on 06/29/18 about status of placement. CM left message on voice mail to return call. CM called patient's sister, Robina Winchester at [phone], attempting to reach Ricardo. Left message for Robina to return my call. DCP- Discharge Planning Updated by [id number]: Mary Scruggs on 06/28/18 7:[address] Patient Name: MATHEW EMANUEL Admission Status: ER Accout number: [id number] Admission Date: 06-17-2018 : 1935 Admission Diagnosis:HISTORY OF FALLING Attending: RUBY KAPOOR Current LOS: 11 Anticipated DC Date: 06-21-2018 Planned Disposition: Mcc Facility Primary Insurance: MEDICARE A & B Discharge Planning Comments: CM WAS CALLED TO PATIENTS ROOM AND THE GRANDDAUGHTER (RICARDO) STATED SHE WAS FORFIETING THE CD TO PAY A LOAN AND THAT WOULD PROBABLY HELP HER GRANDMOTHER BE ACCEPTED TO [facility]. RICARDO STATED SHE IS GOING TO [facility] TOMORROW AND WILL NOTIFY KATY THE LABOR TRAINER TOMORROW REGARDING THIS SITUATION. Product Development Coordinator: Mary Scruggs DCP- Discharge Planning Updated by [id number]: Tom Clark on 06/27/18 4:[address] Patient Name: MATHEW EMANUEL Encounter No: [id number] : 1935 Primary Insurance: MEDICARE A & B Anticipated DC Date: 06-21-2018 Planned Disposition: Mcc Facility External Planned Provider: [place] [facility], SHELTER CARE MEDICAID BED DCP follow-up note: CM REVIEWED CHART WHICH INDICATES PT CANNOT HAVE [facility] REHAB DUE TO BEING OUT OF USP DAYS AND DID NOT HAVE 60 WELL DAYS TO OBTAIN MORE USP DAYS. CM SPOKE TO PT IN ROOM WHO REPORTS THAT SHE WILL DO WHATEVER RICARDO, HER GRANDDAUGHTER, THINKS IS BEST. PT REPORTS THAT RICARDO IS TRYING TO GET HER BACK TO THE [facility]. CM CALLED RICARDO AGUILAR, , WHO INFORMED CM THAT SHE WAS NOT INFORMED THAT PT IS OUT OF SKILLED DAYS AND ASKED FOR OPTIONS. CM EXPLAINED THAT PT WILL NEED TO EITHER PAY FOR SHINGLE SAWYER CARE OR BE QUALIFIED OF MEDICAID FOR SHINGLE SAWYER CARE. RICARDO ASKED CM TO CHECK WITH [place] [facility] FOR SHINGLE SAWYER CARE AVAILABILITY AND RICARDO WILL TRY TO DEAL WITH PT'S CERTIFICATE OF DEPOSIT AT THE BANK THAT IS "TIED" TO A LOAN FOR A FAMILY MEMBER. CM CALLED [facility], SPOKE TO NICOLAS WHO INFORMED CM THAT THEY HAVE TRIED TO GET PT QUALIFIED FOR MEDICAID AND THAT PT'S FINANCIAL SITUATION WITH FAMILY IS COMPLICATED AND PT DOES NOT QUALIFY FOR MEDICAID AND PT IS NOT ABLE TO PAY PRIVATE PAY RATES HERSELF FOR SHELTER CARE. CM CALLED [facility], SPOKE TO BECKY, ASKED ABOUT SHELTER CARE BEDS. BECKY ASKED ABOUT FINANCIAL ASSETS FOR POSSIBLE MEDICAID. CM EXPLAINED THAT CM WAS ADVISED BY ANOTHER [facility] THAT PT DID NOT QUALIFY FOR MEDICAID. BECKY REPORTS BEDS AVAILABLE BUT THAT PT WILL NEED TO PAY UPFRONT PRIVATELY FOR SHINGLE SAWYER CARE. CM CALLED AND SPOKE TO GRANDDAUGHTER, RICARDO AGUILAR, ; ADVISED OF ABOVE INFORMATION. RICARDO WILL TALK TO [facility] IN THE MORNING, 06-28-18, AND TRY TO DEAL WITH THE CERTIFICATE OF DEPOSIT AND SEE IF SHE CAN GET PT TO QUALIFY FOR MEDICAID. CM LEFT CM CONTACT INFORMATION WITH RICARDO AND ASKED HER TO CALL CM WITH UPDATE TOMORROW. CM TO CONTINUE TO FOLLOW AND ASSIST WITH PLACEMENT FOR SHELTER CARE. Tom Clark, CASE MANAGEMENT DCP- Discharge Planning Updated by [id number]: Arabella Jo on 06/22/18 5:[address] CM spoke with patient she agrees that she can't return to her home alone. She states she is to weak. CM attempted to contact Grand-daughter Ricardo several times today to discuss Long -term care home care. CM could not get in touch with her. Voicemail is full. CM will continue to follow and assist with discharge planning / needs. DCP- Discharge Planning Updated by [id number]: Nasrin Layne on 06/21/18 3:[address] CM received call back from Nicolas at [facility] stating they have declined patient for SNF. Nicolas states patient is out of SNF days. States she only had 59 wellness days since last SNF. [facility]. CM will follow up with patient / family in the morning regarding discharge planning. DCP- Discharge Planning Updated by [id number]: Nasrin Layne on 06/21/18 2:[address] CM called and spoke with Nicolas at [facility] about SNF referral. Faxed records as requested. Awaiting determination of acceptance. DCP- Discharge Planning Updated by [id number]: Mary Scruggs on 06/20/18 4:[address] Patient Name: MATHEW EMANUEL Admission Status: ER Accout number: [id number] Admission Date: 06-17-2018 : 1935 Admission Diagnosis: Attending: RUBY KAPOOR Current LOS: 3 Anticipated DC Date: 06-21-2018 Planned Disposition: Mcc Facility Primary Insurance: MEDICARE A & B Discharge Planning Comments: CM MET WITH PATIENT AND SHE STATED TO CALL HER GRANDDAUGHTER (RICARDO) TO DISCUSS HER DISCHARGE NEEDS AND PLANS. PATIENT LIVES ALONE AND HAS 1 STEP TO ENTER HOME. PATIENTS PCP IS DR. BAXTER AND USES [facility]. PATIENTS GRANDDAUGHTER STATED SHE HAD BEEN IN [facility] IN THE PAST AND WOULD LIKE FOR PATIENT TO GO THERE AT DISCHARGE. PATIENT IS CURRENT WITH [facility] PER GRANDDAUGHTER. PATIENT HAS A WHEELCHAIR, WALKER, AND SHOWER CHAIR AT HOME. PATIENT AGREED TO [facility] AND VERBAL AZEEM WAS BY GRANDDAUGHTER (RICARDO). CM WILL FAX INFO IN THE AM TO [facility]. CM WILL CONTINUE TO FOLLOW PATIENT WITH D/C NEEDS AND PLANS. PCP [facility] RICARDO (GRANDDAUGHTER) [phone] Product Development Coordinator: Mary Scruggs DCP- Discharge Planning Updated by [id number]: Kelly Faye on 06/18/18 6:[address] CM REVISITED THIS AM. THE PATIENT IS MORE AWAKE BUT VERY SHORT OF BREATH. SHE STATES SHE HAS BEEN TO A REHAB [facility] [place] ??? . SHE COULD NOT REMEBER. PERHAPS [facility]. SHE WILL CONSIDER SKILLED STAY AGAIN. SHE GAVE PERMISSION TO SPEAK WITH HER SISTER ,GURU. SHE STATES GURU IS A TWIN. THE TWIN SISTERS LIVE TOGETHER BUT SHE LIVES ALONE. GURU'S ADDRESS IS LISTED THE SAME THE PATIENT. PREVIOUSLY STATED A VM MESSAGE WAS LEFT. CM AWAITING CB. DCP- Discharge Planning Updated by [id number]: Kellyerasmo Faye on 06/18/18 5:[address] PATIENT CANNOT PARTICIPATE IN DISCHARGE PLANNING. OT ATTEMPTED TO TREAT TODAY WITHOUT SUCCESS SHE WAS TOO LETHARGIC. PATIENT HAD AMBULATED 130 FT W/ 30% ASSIST. SHE IS BARELY RESPONDING AT THIS TIME. ?? REPEAT CAT OF THE HEAD ?? TC TO GURU [place] THE SISTER TO THE PATIENT TO DISCUSS DISCHARGE. PATIENT NOTED TO LIVE IN THE [facility]. CM TO FOLLOW UP IN THE AM. DCPIA - Discharge Planning Initial Assessment Updated by [email or web address]: Mary Scruggs on 06/20/18 5:33 pm * Is the patient Alert and Oriented? Yes * How many steps to enter\\exit or inside your home? * PCP DR. BAXTER * Pharmacy [facility] * Preadmission Environment Home Alone * ADLs Partial Dependent * Partial ADLs (Assistance needed) Bathing Dressing Eating Medication Management * Equipment Shower Chair Walker Wheelchair * List name and contact numbers for known caregivers / representatives who currently or will assist patient after discharge: RICARDO (GRANDDAUGHTER) [phone] * Verbal permission to speak to the caregivers and representatives has been obtained from the patient. Yes * Community resources currently utilized Home Health * Please name any agencies selected above. [facility] CURRENT * Additional services required to return to the preadmission environment? Yes * Can the patient safely return to the preadmission environment? No * Has this patient been hospitalized within the prior 30 days at any hospital? No Coverage Notice Reviewer: [id number] - Mary Scruggs Notice Issued Date-Time: 06/20/2018 16:45 Notice Type: IM Discharge Notice Notice Delivered To: Family Member Relationship to Patient: Granddaughter Excelsior Cutter Name: RICARDO AGUILAR Delivery Method: PHONE - Phone Gabrielle Days: Prior Verbal Notification: Recipient Understood Notice: Yes Recipient Signature: Med Rec Note Co-signed by Attending: Coverage Notice Comment: Reviewer: [id number] - Tom Clark Notice Issued Date-Time: 06/27/2018 16:30 Notice Type: Patient Choice Letter Notice Delivered To: Family Member Relationship to Patient: Granddaughter Excelsior Cutter Name: RICARDO AGUILAR Delivery Method: HAND - Hand Delivered Gabrielle Days: Prior Verbal Notification: Recipient Understood Notice: Yes Recipient Signature: Yes Med Rec Note Co-signed by Attending: Coverage Notice Comment: 1- [facility], 2-[facility] FOR SHELTER CARE Last DP export: 07/09/18 12:19 pm Patient Name: MATHEW EMANUEL Page [id number] at 1536 All edits/amendments must be made on the electronic document DICTATION DATE: 07/09/18 1535 PORTRAIT PAINTER: JABIER 07/09/18 1535 RPT#: [id number] DC DATE: STATUS: ADM IN [facility] [address] [place] [address] END OF REPORT
[2018-07-09 16:54] VITALS: BP 112/48
--- NOTE | 2018-07-09 17:55 | MORECARE ---
CASE MANAGEMENT DISCHARGE SUMMARY PATIENT: MATHEW EMANUEL UNIT: [id number] ADM DATE: 06/17/18 AGE: 82 : 37 SEX: F ROOM/BED: D.1208 AUTHOR: JOSELYN,DOC PHYSICIAN: REFERRING PHYSICIAN: RUBY COLLINS MD DATE OF SERVICE: 07/09/18 Discharge Plan Patient Name: MATHEW EMANUEL Facility: [facility]:[place] : 1935 Planned Disposition: Custodial Facility Anticipated Discharge Date: 06/21/18 Discharge Date: Expected LOS: 4 Initial Reviewer: [id number] Initial Review Date: 06/20/2018 Generated: 07/09/18 6:55 pm Comments DCP- Discharge Planning Updated by [id number]: Kelly Faye on 07/09/18 4:[address] M SPOKE WITH THE PATIENT AT HER REQUEST. SHE STATES DR BAXTER HAS ARRANGED HOME HEALTH SERVICES FOR HER. CM ADVISED APS WAS GOING TO ASSIST GETTING HER SAFE, RELIABLE CARE. NO VISIT BY APS TO PATIENTS BEDSIDE. DCP- Discharge Planning Updated by [id number]: Nasrin Layne on 07/09/18 2:[address] CM received call from Daniel Mckeon with APS about patient. CM reported to Daniel that CM had attempted to reach family several times without returned calls regarding discharge planning. That family told CM that they were working with [facility] on making financial arrangements for placement, but [facility] states that no family has ever come to the facility to make arrangements. CM faxed records as requested to Daniel at [phone] (cell [phone]) DCP- Discharge Planning Updated by [id number]: Nasrin Layne on 07/06/18 1:[address] CM called APS and reported that patient family is not returning calls or assisting with placement arrangements. Case #[id number]. DCP- Discharge Planning Updated by [email or web address]: Nasrin Layne on 07/05/18 10:[address] CM attempting to reach patient's family regarding placement. CM called patient's granddaughter, Ricardo Magallanes at [phone], who was supposed to call CM on 06/29/18 about status of placement. CM left message on voice mail to return call. CM called patient's sister, Robina Winchester at [phone], attempting to reach Ricardo. Left message for Robina to return my call. CM will continue to follow and assist with discharge planning. If CM does not get a return call from family today, CM will call APS. DCP- Discharge Planning Updated by [id number]: Nasrin Layne on 07/02/18 10:[address] CM called [facility] to check status of family making financial arrangements for placement. CM spoke with Nicolas who informed CM that no one from the family has been there to make financial arrangements. CM called patient's granddaughter, Ricardo Magallanes at [phone], who was supposed to call CM on 06/29/18 about status of placement. CM left message on voice mail to return call. CM called patient's sister, Robina Winchester at [phone], attempting to reach Ricardo. Left message for Robina to return my call. DCP- Discharge Planning Updated by [id number]: Mary Scruggs on 06/28/18 7:[address] Patient Name: MATHEW EMANUEL Admission Status: ER Accout number: [id number] Admission Date: 06-17-2018 : 1935 Admission Diagnosis:HISTORY OF FALLING Attending: RUBY KAPOOR Current LOS: 11 Anticipated DC Date: 06-21-2018 Planned Disposition: Custodial Facility Primary Insurance: MEDICARE A & B Discharge Planning Comments: CM WAS CALLED TO PATIENTS ROOM AND THE GRANDDAUGHTER (RICARDO) STATED SHE WAS FORFIETING THE CD TO PAY A LOAN AND THAT WOULD PROBABLY HELP HER GRANDMOTHER BE ACCEPTED TO [facility]. RICARDO STATED SHE IS GOING TO [facility] TOMORROW AND WILL NOTIFY KATY THE DATA PROCESSOR TOMORROW REGARDING THIS SITUATION. Melter Caster: Mary Scruggs DCP- Discharge Planning Updated by [id number]: Tom Clark on 06/27/18 4:[address] Patient Name: MATHEW EMANUEL Encounter No: [id number] : 1935 Primary Insurance: MEDICARE A & B Anticipated DC Date: 06-21-2018 Planned Disposition: Custodial Facility External Planned Provider: [facility], SENIOR CARE CARE MEDICAID BED DCP follow-up note: CM REVIEWED CHART WHICH INDICATES PT CANNOT HAVE JAIL REHAB DUE TO BEING OUT OF JAIL DAYS AND DID NOT HAVE 60 WELL DAYS TO OBTAIN MORE JAIL DAYS. CM SPOKE TO PT IN ROOM WHO REPORTS THAT SHE WILL DO WHATEVER RICARDO, HER GRANDDAUGHTER, THINKS IS BEST. PT REPORTS THAT RICARDO IS TRYING TO GET HER BACK TO THE [facility]. CM CALLED RICARDO MAGALLANES, , WHO INFORMED CM THAT SHE WAS NOT INFORMED THAT PT IS OUT OF SKILLED DAYS AND ASKED FOR OPTIONS. CM EXPLAINED THAT PT WILL NEED TO EITHER PAY FOR COMPUTER FORENSICS TECHNICIAN CARE OR BE QUALIFIED OF MEDICAID FOR SENIOR CARE CARE. RICARDO ASKED CM TO CHECK WITH [facility] AND [facility] FOR COMPUTER FORENSICS TECHNICIAN CARE AVAILABILITY AND RICARDO WILL TRY TO DEAL WITH PT'S CERTIFICATE OF DEPOSIT AT THE BANK THAT IS "TIED" TO A LOAN FOR A FAMILY MEMBER. CM CALLED [facility], SPOKE TO NICOLAS WHO INFORMED CM THAT THEY HAVE TRIED TO GET PT QUALIFIED FOR MEDICAID AND THAT PT'S FINANCIAL SITUATION WITH FAMILY IS COMPLICATED AND PT DOES NOT QUALIFY FOR MEDICAID AND PT IS NOT ABLE TO PAY PRIVATE PAY RATES HERSELF FOR COMPUTER FORENSICS TECHNICIAN CARE. CM CALLED [facility], SPOKE TO BECKY, ASKED ABOUT COMPUTER FORENSICS TECHNICIAN CARE BEDS. BECKY ASKED ABOUT FINANCIAL ASSETS FOR POSSIBLE MEDICAID. CM EXPLAINED THAT CM WAS ADVISED BY ANOTHER [facility] THAT PT DID NOT QUALIFY FOR MEDICAID. [facility] REPORTS BEDS AVAILABLE BUT THAT PT WILL NEED TO PAY UPFRONT PRIVATELY FOR SENIOR CARE CARE. CM CALLED AND SPOKE TO RICARDO YA, ; ADVISED OF ABOVE INFORMATION. RICARDO WILL TALK TO [facility] IN THE MORNING, 06-28-18, AND TRY TO DEAL WITH THE CERTIFICATE OF DEPOSIT AND SEE IF SHE CAN GET PT TO QUALIFY FOR MEDICAID. CM LEFT CM CONTACT INFORMATION WITH RICARDO AND ASKED HER TO CALL CM WITH UPDATE TOMORROW. CM TO CONTINUE TO FOLLOW AND ASSIST WITH PLACEMENT FOR COMPUTER FORENSICS TECHNICIAN CARE. Tom Clark, CASE MANAGEMENT DCP- Discharge Planning Updated by [id number]: Arabella Jo on 06/22/18 5:[address] CM spoke with patient she agrees that she can't return to her home alone. She states she is to weak. CM attempted to contact Grand-daughter Ricardo several times today to discuss Long -term halfway care. CM could not get in touch with her. Voicemail is full. CM will continue to follow and assist with discharge planning / needs. DCP- Discharge Planning Updated by [id number]: Nasrin Layne on 06/21/18 3:[address] CM received call back from Nicolas at [facility] stating they have declined patient for SNF. Nicolas states patient is out of SNF days. States she only had 59 wellness days since last SNF. They recommend [facility] placement. CM will follow up with patient / family in the morning regarding discharge planning. DCP- Discharge Planning Updated by [id number]: Nasrin Layne on 06/21/18 2:[address] CM called and spoke with Nicolas at [facility] about SNF referral. Faxed records as requested. Awaiting determination of acceptance. DCP- Discharge Planning Updated by [id number]: Mary Scruggs on 06/20/18 4:[address] Patient Name: MATHEW EMANUEL Admission Status: ER Accout number: [id number] Admission Date: 06-17-2018 : 1935 Admission Diagnosis: Attending: RUBY KAPOOR Current LOS: 3 Anticipated DC Date: 06-21-2018 Planned Disposition: Custodial Facility Primary Insurance: MEDICARE A & B Discharge Planning Comments: CM MET WITH PATIENT AND SHE STATED TO CALL HER GRANDDAUGHTER (RICARDO) TO DISCUSS HER DISCHARGE NEEDS AND PLANS. PATIENT LIVES ALONE AND HAS 1 STEP TO ENTER HOME. PATIENTS PCP IS DR. BAXTER AND USES [facility]. PATIENTS GRANDDAUGHTER STATED SHE HAD BEEN IN [facility] IN THE PAST AND WOULD LIKE FOR PATIENT TO GO THERE AT DISCHARGE. PATIENT IS CURRENT WITH [facility] PER GRANDDAUGHTER. PATIENT HAS A WHEELCHAIR, WALKER, AND SHOWER CHAIR AT HOME. PATIENT AGREED TO [facility] AND VERBAL AZEEM WAS BY GRANDDAUGHTER (RICARDO). CM WILL FAX INFO IN THE AM TO [facility]. CM WILL CONTINUE TO FOLLOW PATIENT WITH D/C NEEDS AND PLANS. PCP [facility] RICARDO (GRANDDAUGHTER) [phone] Melter Caster: Mary Scruggs DCP- Discharge Planning Updated by [id number]: Kelly Faye on 06/18/18 6:[address] CM REVISITED THIS AM. THE PATIENT IS MORE AWAKE BUT VERY SHORT OF BREATH. SHE STATES SHE HAS BEEN TO A REHAB PREVIOUSLY [facility] ??? . SHE COULD NOT REMEBER. PERHAPS [facility]. SHE WILL CONSIDER SKILLED STAY AGAIN. SHE GAVE PERMISSION TO SPEAK WITH HER SISTER ,GURU. SHE STATES GURU IS A TWIN. THE TWIN SISTERS LIVE TOGETHER BUT SHE LIVES ALONE. GURU'S ADDRESS IS LISTED THE SAME THE PATIENT. PREVIOUSLY STATED A VM MESSAGE WAS LEFT. CM AWAITING CB. DCP- Discharge Planning Updated by [id number]: Kelly Faye on 06/18/18 5:[address] PATIENT CANNOT PARTICIPATE IN DISCHARGE PLANNING. OT ATTEMPTED TO TREAT TODAY WITHOUT SUCCESS SHE WAS TOO LETHARGIC. PATIENT HAD AMBULATED 130 FT W/ 30% ASSIST. SHE IS BARELY RESPONDING AT THIS TIME. ?? REPEAT CAT OF THE HEAD ?? TC TO GURU [place] THE SISTER TO THE PATIENT TO DISCUSS DISCHARGE. PATIENT NOTED TO LIVE IN THE [facility]. CM TO FOLLOW UP IN THE AM. DCPIA - Discharge Planning Initial Assessment Updated by [id number]: Mary Scruggs on 06/20/18 5:33 pm * Is the patient Alert and Oriented? Yes * How many steps to enter\\exit or inside your home? * PCP DR. BAXTER * Pharmacy [facility] * Preadmission Environment Home Alone * ADLs Partial Dependent * Partial ADLs (Assistance needed) Bathing Dressing Eating Medication Management * Equipment Shower Chair Walker Wheelchair * List name and contact numbers for known caregivers / representatives who currently or will assist patient after discharge: RICARDO (GRANDDAUGHTER) [phone] * Verbal permission to speak to the caregivers and representatives has been obtained from the patient. Yes * Community resources currently utilized Home Health * Please name any agencies selected above. [facility] CURRENT * Additional services required to return to the preadmission environment? Yes * Can the patient safely return to the preadmission environment? No * Has this patient been hospitalized within the prior 30 days at any hospital? No Coverage Notice Reviewer: [id number] Salena Scruggs Notice Issued Date-Time: 06/20/2018 16:45 Notice Type: IM Discharge Notice Notice Delivered To: Family Member Relationship to Patient: Granddaughter Roofing Superintendent Name: RICARDO MAGALLANES Delivery Method: PHONE - Phone Gabrielle Days: Prior Verbal Notification: Recipient Understood Notice: Yes Recipient Signature: Med Rec Note Co-signed by Attending: Coverage Notice Comment: Reviewer: [id number] - Tom Clark Notice Issued Date-Time: 06/27/2018 16:30 Notice Type: Patient Choice Letter Notice Delivered To: Family Member Relationship to Patient: Granddaughter Roofing Superintendent Name: RICARDO MAGALLANES Delivery Method: HAND - Hand Delivered Gabrielle Days: Prior Verbal Notification: Recipient Understood Notice: Yes Recipient Signature: Yes Med Rec Note Co-signed by Attending: Coverage Notice Comment: 1- [facility] PATEL, 2-[facility] Last DP export: 07/09/18 2:36 pm Patient Name: MATHEW EMANULE Page [id number] at 1755 All edits/amendments must be made on the electronic document DICTATION DATE: 07/09/181754 JUDO INSTRUCTOR: JABIER 07/09/181754 RPT#: [id number] DC DATE: STATUS: ADM IN [facility] [address] [place] [address] END OF REPORT
--- NOTE | 2018-07-09 19:30 | NUR ---
PT IS RESTING IN BED WITH EYES OPEN. ALERT AND ORIENTED X 3. DENIES ANY PAIN OR DISCOMFORT AT THIS TIME. PT VOICED THAT SHE DID NOT UNDERSTAND WHY SHE WAS BEING HELD IN THE HOSPITAL AGAINST HER WILL. SHE STATED: "I KNOW I WAS SICK WHEN I CAME HERE, BUT I FEEL FINE NOW, AND THEY ARE SAYING I CANNOT GO HOME AGAIN. I HAVE BEEN TAKING CARE OF MYSELF FOR 15 YEARS, AND I CAN CONTINUE TO DO SO." I EXPLAINED THAT I WAS NOT SURE EXACTLY WHAT WAS BEING PLANNED, BUT WOULD PASS ON FOR A ELECTRICIAN REFINERY TO SPEAK WITH HER IN THE MORNING. SR'S ARE UP X 3 IN BED. CALL LIGHT AND BEDSIDE TABLE ARE WITHIN EASY REACH. LADY ALARM IS TURNED ON.
[2018-07-09 20:00] VITALS: BP 124/51
--- NOTE | 2018-07-09 21:13 | NUR ---
PT IS RESTING IN BED WATCHING TV. NO ACUTE DISTRESS NOTED.
[2018-07-10] VITALS: BP 131/52
--- NOTE | 2018-07-10 00:01 | NUR ---
PT RESTING IN BED WITH EYES OPEN. NO ACUTE DISTRESS NOTED.
--- NOTE | 2018-07-10 03:43 | NUR ---
RESTING QUIETLY IN BED WITH EYES CLOSED. NO ACUTE DISTRESS NOTED.
[2018-07-10 04:00] VITALS: BP 114/54
[2018-07-10 07:27] VITALS: BP 150/66
--- NOTE | 2018-07-10 10:14 | NUR ---
PT RESTING IN BED. NO SIGNS OF DISTRESS. NO IV IN AT THIS TIME. ON TELEMETRY 76 SR. DENIES ANY NEED AT THIS TIME. CALL LIGHT IN REACH. BED LOW POSITION. NO FAMILY AT BEDSIDE.
[2018-07-10 11:43] VITALS: BP 117/56
--- NOTE | 2018-07-10 12:32 | NUR ---
Pt on a pureed diet with thin liquids Pt consumed 100% of all meals yesterday however po intake varies from poor to good. 2 BM yesterday Pt sleeping during rounds today. Spoke with pt yesterday and she was feeding herself a snack Noted awaiting placement RD following per protocol
--- NOTE | 2018-07-10 17:10 | NUR ---
HELPED PT TO BATHROOM AND BACK TO BED, RESP EVEN AND NONLABORED ON RA. PT C/O LT SHOULDER PAIN, WILL LET PRIMARY NURSE. SET PT UP FOR DINNER. PT DENIES ANY OTHER NEEDS AT THIS TIME. CALL LIGHT IN REACH, NAD NOTED.
[2018-07-10 20:00] VITALS: BP 117/54
--- NOTE | 2018-07-10 21:05 | NUR ---
ASSISTED PT TO BATHROOM AND PT HAS SMALL YELLOW BOWEL MOVEMENT, THEN ASSESTED PT BACK TO BED.
[2018-07-11 00:20] VITALS: BP 105/52
--- NOTE | 2018-07-11 01:01 | NUR ---
REST QUIELTY IN BED, CALL LIGHT IN REACH.
--- NOTE | 2018-07-11 01:32 | NUR ---
PATIENT RESTING IN BED WITH EYES CLOSED AND NO S/S OF DISTRESS. BREATHING EVEN AND UNLABORED. BED IN LOWEST POSITION AND CALL LIGHT WITHIN REACH. WILL CONTINUE TO MONITOR.
[2018-07-11 04:00] VITALS: BP 126/55
[2018-07-11 07:15] LABS: BASOPHILS 0.8 % (0-2); HEMATOCRIT 34.9 % (36.0-48.0); HEMOGLOBIN 11.4 g/dL (12-16); IMMATURE GRANULOCYTES 0.5 % (0-5); LYMPHOCYTES 31.9 % (15-50); MCH 30.6 pg (26.0-34.0); MCHC 32.7 g/dL (31.0-37.0); MCV 93.6 fL (80.0-100.0); MEAN PLATELET VOLUME 9.3 fL (7.4-10.4); MONOCYTES 11.2 % (2-11); NEUTROPHILS 54.6 % (40-80); PLATELET COUNT 313 10x3/uL (130-400); RBC 3.73 10x6/uL (4.00-5.40); RDW 14.2 % (11.5-14.5); WBC 6.1 10x3/uL (4.8-10.8)
--- NOTE | 2018-07-11 07:17 | NUR ---
PT RESTING QUIETLY. CL IN REACH. NO SIGNS OF DISTRESS OR PAIN. BED IN LOW POSITION. SIDE RAILS X2. WCTM
[2018-07-11 07:41] LABS: ALBUMIN 2.9 g/dL (3.4-5.0); ANION GAP 16.4 mmol/L (8-16); BILIRUBIN - TOTAL 0.22 mg/dL (0.2-1.3); CALCIUM 8.7 mg/dL (8.5-10.1); CARBON DIOXIDE 23.7 mmol/L (21.0-32.0); CREATININE - SERUM 0.9 mg/dL (0.6-1.3); MAGNESIUM - SERUM 2.2 mg/dL (1.8-2.4); POTASSIUM - SERUM 4.1 mmol/L (3.5-5.1); PROTEIN - SERUM 6.7 g/dL (6.4-8.2)
[2018-07-11 08:24] VITALS: BP 109/57
--- NOTE | 2018-07-11 10:14 | NUR ---
PT RESTING COMFORTABLY IN BED, RESP EVEN AND NONLABORED ON RA. NO IV ACCESS NOTED, PT DENIES ANY NEEDS AT THIS TIME. CALL LIGHT IN REACH, NAD NOTED.
--- NOTE | 2018-07-11 11:53 | NUR ---
PT RESTING COMFORTABLE IN BED. CL IN REACH. PT DENIES NEEDS OR PAIN. RESP EVEN AND UNLABORED. WCTM
--- NOTE | 2018-07-11 12:54 | NUR ---
HELPED PT TO BATHROOM AND BACK TO BED, RESP EVEN AND NONLAORED ON RA. PT DENIES ANY OTHER NEEDS AT THIS TIME. CALL LIGHT IN REACH, LADY ALARM ON, BEDSIDE RAILS X2, NAD NOTED.
[2018-07-11 12:56] VITALS: BP 118/60
--- NOTE | 2018-07-11 14:08 | NUR ---
PT LYING IN BED. CL IN REACH. PT DENIES NEEDS OR PAIN.
[2018-07-11 16:50] VITALS: BP 129/54
--- NOTE | 2018-07-11 18:19 | NUR ---
PT LYING IN BED. CL IN REACH. PT DENIES NEEDS OR PAIN. BED IN LOW POSITION.SIDE RAILS X2. RESP EVEN AND UNLABORED. WCTM
--- NOTE | 2018-07-11 19:05 | NUR ---
PATIENT IS RESTING IN HER BED. DENIES ANY NEEDS. BED IS DOWN LOW WITH SIDE RAILS UP X3. BED ALARM ACTIVATED AND CALL LIGHT IN REACH.
[2018-07-11 23:00] VITALS: BP 104/49
--- NOTE | 2018-07-11 23:00 | NUR ---
PATIENT IS RESTING IN HER BED. A&O X2. VITAL SIGNS ARE STABLE. BED IS DOWN LOW WITH SIDE RAILS UP X2. BED ALARM ACTIVATED AND CALL LIGHT IN REACH.
--- NOTE | 2018-07-12 03:00 | NUR ---
PATIENT IS RESTING IN BED. DENIES ANY NEEDS. BED IS DOWN LOW WITH SIDE RAILS UP X2. CALL LIGHT IN REACH.
[2018-07-12 04:00] VITALS: BP 122/55
[2018-07-12 07:27] LABS: HEMATOCRIT 33.5 % (36.0-48.0); HEMOGLOBIN 11.2 g/dL (12-16); LYMPHOCYTES 31.5 % (15-50); MCH 30.9 pg (26.0-34.0); MCHC 33.4 g/dL (31.0-37.0); MCV 92.5 fL (80.0-100.0); MEAN PLATELET VOLUME 8.5 fL (7.4-10.4); NEUTROPHILS 59.2 % (40-80); PLATELET COUNT 308 10x3/uL (130-400); RBC 3.62 10x6/uL (4.00-5.40); RDW 13.3 % (11.5-14.5); WBC 6.7 10x3/uL (4.8-10.8)
[2018-07-12 07:50] LABS: ALBUMIN 2.9 g/dL (3.4-5.0); ANION GAP 15.9 mmol/L (8-16); BILIRUBIN - TOTAL 0.25 mg/dL (0.2-1.3); CALCIUM 8.5 mg/dL (8.5-10.1); CREATININE - SERUM 0.8 mg/dL (0.6-1.3); MAGNESIUM - SERUM 2.3 mg/dL (1.8-2.4); POTASSIUM - SERUM 3.9 mmol/L (3.5-5.1); PROTEIN - SERUM 6.6 g/dL (6.4-8.2)
--- NOTE | 2018-07-12 07:55 | NUR ---
PT RESPOSITIONED IN BED AND IS SITTING UP FOR BREAKFAST. PT DENIES NEEDS. WCTM.
--- NOTE | 2018-07-12 09:33 | MORECARE ---
CASE MANAGEMENT DISCHARGE SUMMARY PATIENT: MATHEW EMANUEL UNIT: [id number] ADM DATE: 06/17/18 AGE: 82 : 39 SEX: F ROOM/BED: D.1208 AUTHOR: JOSELYNDOC PHYSICIAN: REFERRING PHYSICIAN: RUBY COLLINS MD DATE OF SERVICE: 07/12/18 Discharge Plan Patient Name: MAHTEW EMANUEL Facility: [facility]:[place] : 1935 Planned Disposition: [facility] Facility Anticipated Discharge Date: 06/21/18 Discharge Date: Expected LOS: 4 Initial Reviewer: [id number] Initial Review Date: 06/20/2018 Generated: 07/12/18 10:33 am Comments DCP- Discharge Planning Updated by [id number]: Ting Kumar on 07/12/18 8:[address] Patient Name: MATHEW EMANUEL Admission Status: ER Accout number: [id number] Admission Date: 06-17-2018 : 1935 Admission Diagnosis:HISTORY OF FALLING Attending: RUBY KAPOOR Current LOS: 25 Anticipated DC Date: 06-21-2018 Planned Disposition: [facility] Facility Primary Insurance: MEDICARE A & B Discharge Planning Comments: CM CALLED AND LEFT [facility] AT OFFICE NUMBER [phone] EXT [phone]. WAITING FOR CALL BACK TO DETERMINE WHERE PATIENT WILL BE DISCHARGED TO. CM WILL FOLLOW AND ASSIST. Emery Wheel Molder: Ting Kumar DCP- Discharge Planning Updated by [id number]: Kelly Faye on 07/09/18 4:[address] M SPOKE WITH THE PATIENT AT HER REQUEST. SHE STATES DR BAXTER HAS ARRANGED HOME HEALTH SERVICES FOR HER. CM ADVISED APS WAS GOING TO ASSIST GETTING HER SAFE, RELIABLE CARE. NO VISIT BY APS TO PATIENTS BEDSIDE. DCP- Discharge Planning Updated by [id number]: Nasrin Layne on 07/09/18 2:[address] CM received call from Daniel Mckeon with APS about patient. CM reported to Daniel that CM had attempted to reach family several times without returned calls regarding discharge planning. That family told CM that they were working with [facility] and [facility] on making financial arrangements for placement, but [facility] states that no family has ever come to the facility to make arrangements. CM faxed records as requested to Daniel at [phone] (cell [phone]) DCP- Discharge Planning Updated by [id number]: Nasrin Layne on 07/06/18 1:[address] CM called APS and reported that patient family is not returning calls or assisting with placement arrangements. Case #[id number]. DCP- Discharge Planning Updated by [id number]: Nasrin Layne on 07/05/18 10:[address] CM attempting to reach patient's family regarding placement. CM called patient's granddaughter, Ricardo Aguilar at [phone], who was supposed to call CM on 06/29/18 about status of placement. CM left message on voice mail to return call. CM called patient's sister, Robina aPige at [phone], attempting to reach Ricardo. Left message for Robina to return my call. CM will continue to follow and assist with discharge planning. If CM does not get a return call from family today, CM will call APS. DCP- Discharge Planning Updated by [id number]: Nasrin Layne on 07/02/18 10:[address] CM called [facility] to check status of family making financial arrangements for placement. CM spoke with Nicolas who informed CM that no one from the family has been there to make financial arrangements. CM called patient's granddaughter, Ricardo Aguilar at [phone], who was supposed to call CM on 06/29/18 about status of placement. CM left message on voice mail to return call. CM called patient's sister, Robina Paige at [phone], attempting to reach Ricardo. Left message for Robina to return my call. DCP- Discharge Planning Updated by [id number]: Mary Scruggs on 06/28/18 7:[address] Patient Name: MATHEW EMANUEL Admission Status: ER Accout number: [id number] Admission Date: 06-17-2018 : 1935 Admission Diagnosis:HISTORY OF FALLING Attending: RUBY KAPOOR Current LOS: 11 Anticipated DC Date: 06-21-2018 Planned Disposition: [facility] Facility Primary Insurance: MEDICARE A & B Discharge Planning Comments: CM WAS CALLED TO PATIENTS ROOM AND THE GRANDDAUGHTER (RICARDO) STATED SHE WAS FORFIETING THE CD TO PAY A LOAN AND THAT WOULD PROBABLY HELP HER GRANDMOTHER BE ACCEPTED TO [facility]. RICARDO STATED SHE IS GOING TO [facility] TOMORROW AND WILL NOTIFY KATY THE FLAT LOCK OPERATOR TOMORROW REGARDING THIS SITUATION. Emery Wheel Molder: Mary Scruggs DCP- Discharge Planning Updated by [id number]: Tom Mccordwell on 06/27/18 4:[address] Patient Name: MATHEW EMANUEL Encounter No: [id number] : 1935 Primary Insurance: MEDICARE A & B Anticipated DC Date: 06-21-2018 Planned Disposition: [facility] Facility External Planned Provider: [facility], LONG-TERM CARE MEDICAID BED DCP follow-up note: CM REVIEWED CHART WHICH INDICATES PT CANNOT HAVE [facility] REHAB DUE TO BEING OUT OF [facility] DAYS AND DID NOT HAVE 60 WELL DAYS TO OBTAIN MORE [facility] DAYS. CM SPOKE TO PT IN ROOM WHO REPORTS THAT SHE WILL DO WHATEVER RICARDO, HER GRANDDAUGHTER, THINKS IS BEST. PT REPORTS THAT RICARDO IS TRYING TO GET HER BACK TO THE [facility]. CM CALLED RICARDO AGUILAR, , WHO INFORMED CM THAT SHE WAS NOT INFORMED THAT PT IS OUT OF SKILLED DAYS AND ASKED FOR OPTIONS. CM EXPLAINED THAT PT WILL NEED TO EITHER PAY FOR APPLICATIONS SALES CONSULTANT CARE OR BE QUALIFIED OF MEDICAID FOR LONG-TERM CARE. RICARDO ASKED CM TO CHECK WITH [facility] FOR APPLICATIONS SALES CONSULTANT CARE AVAILABILITY AND RICARDO WILL TRY TO DEAL WITH PT'S CERTIFICATE OF DEPOSIT AT THE BANK THAT IS "TIED" TO A LOAN FOR A FAMILY MEMBER. CM CALLED [facility], SPOKE TO NICOLAS WHO INFORMED CM THAT THEY HAVE TRIED TO GET PT QUALIFIED FOR MEDICAID AND THAT PT'S FINANCIAL SITUATION WITH FAMILY IS COMPLICATED AND PT DOES NOT QUALIFY FOR MEDICAID AND PT IS NOT ABLE TO PAY PRIVATE PAY RATES HERSELF FOR APPLICATIONS SALES CONSULTANT CARE. CM CALLED [facility], SPOKE TO BECKY, ASKED ABOUT LONG-TERM CARE BEDS. BECKY ASKED ABOUT FINANCIAL ASSETS FOR POSSIBLE MEDICAID. ZONIA EXPLAINED THAT CM WAS ADVISED BY ANOTHER [facility] THAT PT DID NOT QUALIFY FOR MEDICAID. BECKY REPORTS BEDS AVAILABLE BUT THAT PT WILL NEED TO PAY UPFRONT PRIVATELY FOR APPLICATIONS SALES CONSULTANT CARE. CM CALLED AND SPOKE TO DARRELUGHTER, RICARDO AGUILAR, ; ADVISED OF ABOVE INFORMATION. R[facility]ARD[facility] M[facility], 06-28-18, AND TRY TO DEAL WITH THE CERTIFICATE OF DEPOSIT AND SEE IF SHE CAN GET PT TO QUALIFY FOR MEDICAID. CM LEFT CM CONTACT INFORMATION WITH RICARDO AND ASKED HER TO CALL CM WITH UPDATE TOMORROW. CM TO CONTINUE TO FOLLOW AND ASSIST WITH PLACEMENT FOR APPLICATIONS SALES CONSULTANT CARE. Tom Clark, CASE MANAGEMENT DCP- Discharge Planning Updated by [id number]: Arabellachai Thurmanr on 06/22/18 5:[address] CM spoke with patient she agrees that she can't return to her home alone. She states she is to weak. CM attempted to contact Grand-daughter Ricardo several times today to discuss Long -term fpc care. CM could not get in touch with her. Voicemail is full. CM will continue to follow and assist with discharge planning / needs. DCP- Discharge Planning Updated by [id number]: Nasrin Layne on 06/21/18 3:[address] CM received call back from [facility] at [facility] stating they have declined patient for SNF. Nicolas states patient is out of SNF days. States she only had 59 wellness days since last SNF. They recommend Director Of Financial Planning Care placement. CM will follow up with patient / family in the morning regarding discharge planning. DCP- Discharge Planning Updated by [id number]: Nasrin Layne on 06/21/18 2:[address] CM called and spoke with Nicolas at [facility] about SNF referral. Faxed records as requested. Awaiting determination of acceptance. DCP- Discharge Planning Updated by [id number]: Mary Scruggs on 06/20/18 4:[address] Patient Name: MATHEW EMANUEL Admission Status: ER Accout number: [id number] Admission Date: 06-17-2018 : 1935 Admission Diagnosis: Attending: RUBY KAPOOR Current LOS: 3 Anticipated DC Date: 06-21-2018 Planned Disposition: [facility] Facility Primary Insurance: MEDICARE A & B Discharge Planning Comments: CM MET WITH PATIENT AND SHE STATED TO CALL HER GRANDDAUGHTER (RICARDO) TO DISCUSS HER DISCHARGE NEEDS AND PLANS. PATIENT LIVES ALONE AND HAS 1 STEP TO ENTER HOME. PATIENTS PCP IS DR. BAXTER AND USES [facility]. PATIENTS GRANDDAUGHTER STATED SHE HAD BEEN IN [facility] IN THE PAST AND WOULD LIKE FOR PATIENT TO GO THERE AT DISCHARGE. PATIENT IS CURRENT WITH [facility] PER GRANDDAUGHTER. PATIENT HAS A WHEELCHAIR, WALKER, AND SHOWER CHAIR AT HOME. PATIENT AGREED TO [facility] AND VERBAL AZEEM WAS BY GRANDDAUGHTER (RICARDO). CM WILL FAX INFO IN THE AM TO [facility]. CM WILL CONTINUE TO FOLLOW PATIENT WITH D/C NEEDS AND PLANS. PCP [facility] RICARDO (GRANDDAUGHTER) [phone] Emery Wheel Molder: Mary Scruggs DCP- Discharge Planning Updated by [id number]: Kelly Faye on 06/18/18 6:[address] CM REVISITED THIS AM. THE PATIENT IS MORE AWAKE BUT VERY SHORT OF BREATH. SHE STATES SHE HAS BEEN TO A REHAB [facility]VI[facility]SLY [place] ??? . SHE COULD NOT REMEBER. PERHAPS [facility]. SHE WILL CONSIDER SKILLED STAY AGAIN. SHE GAVE PERMISSION TO SPEAK WITH HER SISTER ,GURU. SHE STATES GURU IS A TWIN. THE TWIN SISTERS LIVE TOGETHER BUT SHE LIVES ALONE. GURU'S ADDRESS IS LISTED THE SAME THE PATIENT. PREVIOUSLY STATED A VM MESSAGE WAS LEFT. CM AWAITING CB. DCP- Discharge Planning Updated by [id number]: Kelly Faye on 06/18/18 5:[address] PATIENT CANNOT PARTICIPATE IN DISCHARGE PLANNING. OT ATTEMPTED TO TREAT TODAY WITHOUT SUCCESS SHE WAS TOO LETHARGIC. PATIENT HAD AMBULATED 130 FT W/ 30% ASSIST. SHE IS BARELY RESPONDING AT THIS TIME. ?? REPEAT CAT OF THE HEAD ?? TC TO GURU PAIGE THE SISTER TO THE PATIENT TO DISCUSS DISCHARGE. PATIENT NOTED TO LIVE IN THE [facility]. CM TO FOLLOW UP IN THE AM. DCPIA - Discharge Planning Initial Assessment Updated by [id number]: Mary Scruggs on 06/20/18 5:33 pm * Is the patient Alert and Oriented? Yes * How many steps to enter\\exit or inside your home? * PCP DR. BAXTER * [facility] * Preadmission Environment Home Alone * ADLs Partial Dependent * Partial ADLs (Assistance needed) Bathing Dressing Eating Medication Management * Equipment Shower Chair Walker Wheelchair * List name and contact numbers for known caregivers / representatives who currently or will assist patient after discharge: RICARDO (GRANDDAUGHTER) [phone] * Verbal permission to speak to the caregivers and representatives has been obtained from the patient. Yes * Community resources currently utilized Home Health * Please name any agencies selected above. [facility] CURRENT * Additional services required to return to the preadmission environment? Yes * Can the patient safely return to the preadmission environment? No * Has this patient been hospitalized within the prior 30 days at any hospital? No Coverage Notice Reviewer: [id number] - Mary Scruggs Notice Issued Date-Time: 06/20/2018 16:45 Notice Type: IM Discharge Notice Notice Delivered To: Family Member Relationship to Patient: Granddaughter Wind Farm Support Specialist Name: RICARDO AGUILAR Delivery Method: PHONE - Phone Gabrielle Days: Prior Verbal Notification: Recipient Understood Notice: Yes Recipient Signature: Med Rec Note Co-signed by Attending: Coverage Notice Comment: Reviewer: [id number] - Tom Clark Notice Issued Date-Time: 06/27/2018 16:30 Notice Type: Patient Choice Letter Notice Delivered To: Family Member Relationship to Patient: Granddaughter Wind Farm Support Specialist Name: RICARDO AGUILAR Delivery Method: HAND - Hand Delivered Gabrielle Days: Prior Verbal Notification: Recipient Understood Notice: Yes Recipient Signature: Yes Med Rec Note Co-signed by Attending: Coverage Notice Comment: 1- ALDEN PATEL, 2-YOSSI FOR LONG-TERM CARE Last DP export: 07/09/18 4:55 pm Patient Name: MATHEW EMANUEL Page [id number] at 0933 All edits/amendments must be made on the electronic document DICTATION DATE: 07/12/18931 TRANSPORT TANK TECHNICIAN: JABIER 07/12/18931 RPT#: [id number] DC DATE: STATUS: ADM IN [facility] [address] [place] [address] END OF REPORT
[2018-07-12 09:34] VITALS: BP 130/52
--- NOTE | 2018-07-12 11:32 | MORECARE ---
CASE MANAGEMENT DISCHARGE SUMMARY PATIENT: MATHEW EMANUEL UNIT: [id number] ADM DATE: 06/17/18 AGE: 82 : 39 SEX: F ROOM/BED: D.1208 AUTHOR: JOSELYN,DOC PHYSICIAN: REFERRING PHYSICIAN: RUBY COLLINS MD DATE OF SERVICE: 07/12/18 Discharge Plan Patient Name: MATHEW EMANUEL Facility: [facility]:[place] : 1935 Planned Disposition: Long-Term Facility Anticipated Discharge Date: 06/21/18 Discharge Date: Expected LOS: 4 Initial Reviewer: [id number] Initial Review Date: 06/20/2018 Generated: 07/12/18 12:32 pm Comments DCP- Discharge Planning Updated by [id number]: Ting Kumar on 07/12/18 10:[address] Patient Name: MATHEW EMANUEL Admission Status: ER Accout number: [id number] Admission Date: 06-17-2018 : 1935 Admission Diagnosis:HISTORY OF FALLING Attending: RUBY KAPOOR Current LOS: 25 Anticipated DC Date: 06-21-2018 Planned Disposition: Long-Term Facility Primary Insurance: MEDICARE A & B Discharge Planning Comments: CM CALLED AND LEFT [facility] FOR APS DANIEL MCKEON AT OFFICE NUMBER [phone] EXT [phone]. WAITING FOR CALL BACK TO DETERMINE WHERE PATIENT WILL BE DISCHARGED TO. CM WILL FOLLOW AND ASSIST. Tile Grinder: Ting Kumar Appended by Ting Kumar on 07/12/2018 11:24 PLATE WORKER: CM SPOKE WITH APS, PLAN IS TO HAVE IN PT REHAB RE-EVALUALTE FOR INPTREHAB, OR [facility]BE [facility]. HE STATES THE HOME ENVIRONMENT IS SAFE. DCP- Discharge Planning Updated by [id number]: Kelly Faye on 07/09/18 4:[address] M SPOKE WITH THE PATIENT AT HER REQUEST. SHE STATES DR BAXTER HAS ARRANGED HOME HEALTH SERVICES FOR HER. CM ADVISED APS WAS GOING TO ASSIST GETTING HER SAFE, RELIABLE CARE. NO VISIT BY APS TO PATIENTS BEDSIDE. DCP- Discharge Planning Updated by [id number]: Nasrin Layne on 07/09/18 2:[address] CM received call from Daniel Mckeon with APS about patient. CM reported to Daniel that CM had attempted to reach family several times without returned calls regarding discharge planning. That family told CM that they were working with [facility] and [facility] on making financial arrangements for placement, but [facility] states that no family has ever come to the facility to make arrangements. CM faxed records as requested to Daniel at [phone] (cell [phone]) DCP- Discharge Planning Updated by [id number]: Nasrin Layne on 07/06/18 1:[address] CM called APS and reported that patient family is not returning calls or assisting with placement arrangements. Case #[id number]. DCP- Discharge Planning Updated by [id number]: Nasrin Layne on 07/05/18 10:[address] CM attempting to reach patient's family regarding placement. CM called patient's granddaughter, Ricardo Aguilar at [phone], who was supposed to call CM on 06/29/18 about status of placement. CM left message on voice mail to return call. CM called patient's sister, Robina Paige at [phone], attempting to reach Ricardo. Left message for Robina to return my call. CM will continue to follow and assist with discharge planning. If CM does not get a return call from family today, CM will call APS. DCP- Discharge Planning Updated by [email or web address]: Nasrin Layne on 07/02/18 10:[address] [facility] family making financial arrangements for placement. CM spoke with Nicolas who informed CM that no one from the family has been there to make financial arrangements. CM called patient's granddaughter, Ricardo Aguilar at [phone], who was supposed to call CM on 06/29/18 about status of placement. CM left message on voice mail to return call. CM called patient's sister, Robina Paige at [phone], attempting to reach Ricardo. Left message for Robina to return my call. DCP- Discharge Planning Updated by [id number]: Mary Scruggs on 06/28/18 7:[address] Patient Name: MATHEW EMANUEL Admission Status: ER Accout number: [id number] Admission Date: 06-17-2018 : 1935 Admission Diagnosis:HISTORY OF FALLING Attending: RUBY KAPOOR Current LOS: 11 Anticipated DC Date: 06-21-2018 Planned Disposition: Long-Term Facility Primary Insurance: MEDICARE A & B Discharge Planning Comments: CM WAS CALLED TO PATIENTS ROOM AND THE GRANDDAUGHTER (RICARDO) STATED SHE WAS FORFIETING THE CD TO PAY A LOAN AND THAT WOULD PROBABLY HELP HER GRANDMOTHER BE ACCEPTED TO [facility]. RICARDO STATED SHE IS GOING TO [facility] TOMORROW AND WILL NOTIFY KATY THE MAILING MACHINE HELPER TOMORROW REGARDING THIS SITUATION. Tile Grinder: Mary Scruggs DCP- Discharge Planning Updated by [id number]: Tom Clark on 06/27/18 4:[address] Patient Name: MATHEW EMANUEL Encounter No: [id number] : 1935 Primary Insurance: MEDICARE A & B Anticipated DC Date: 06-21-2018 Planned Disposition: Long-Term Facility External Planned Provider: [facility], [employer] MEDICAID BED DCP follow-up note: CM REVIEWED CHART WHICH INDICATES PT CANNOT HAVE FDC REHAB DUE TO BEING OUT OF FDC DAYS AND DID NOT HAVE 60 WELL DAYS TO OBTAIN MORE FDC DAYS. CM SPOKE TO PT IN ROOM WHO REPORTS THAT SHE WILL DO WHATEVER RICARDO, HER GRANDDAUGHTER, THINKS IS BEST. PT REPORTS THAT RICARDO IS TRYING TO GET HER BACK TO THE SHELTER. CM CALLED RICARDO SONA, , WHO INFORMED CM THAT SHE WAS NOT INFORMED THAT PT IS OUT OF SKILLED DAYS AND ASKED FOR OPTIONS. CM EXPLAINED THAT PT WILL NEED TO EITHER PAY FOR [facility] CARE OR BE QUALIFIED OF MEDICAID FOR [employer]. RICARDO ASKED CM TO CHECK WITH [facility] AND [facility] FOR [facility] CARE AVAILABILITY AND RICARDO WILL TRY TO DEAL WITH PT'S CERTIFICATE OF DEPOSIT AT THE BANK THAT IS "TIED" TO A LOAN FOR A FAMILY MEMBER. CM CALLED [facility], SPOKE TO NICOLAS WHO INFORMED CM THAT THEY HAVE TRIED TO GET PT QUALIFIED FOR MEDICAID AND THAT PT'S FINANCIAL SITUATION WITH FAMILY IS COMPLICATED AND PT DOES NOT QUALIFY FOR MEDICAID AND PT IS NOT ABLE TO PAY PRIVATE PAY RATES HERSELF FOR [employer]. CM CALLED [facility], SPOKE TO BECKY, ASKED ABOUT [employer] BEDS. BECKY ASKED ABOUT FINANCIAL ASSETS FOR POSSIBLE MEDICAID. CM EXPLAINED THAT CM WAS ADVISED BY ANOTHER SHELTER THAT PT DID NOT QUALIFY FOR MEDICAID. [facility] REPORTS BEDS AVAILABLE BUT THAT PT WILL NEED TO PAY UPFRONT PRIVATELY FOR [facility] CARE. CM CALLED AND SPOKE TO GRANDDAUGHTER, RICARDO AGUILAR, ; ADVISED OF ABOVE INFORMATION. RICARDO WILL TALK TO [facility] IN THE MORNING, 06-28-18, AND TRY TO DEAL WITH THE CERTIFICATE OF DEPOSIT AND SEE IF SHE CAN GET PT TO QUALIFY FOR MEDICAID. CM LEFT CM CONTACT INFORMATION WITH RICARDO AND ASKED HER TO CALL CM WITH UPDATE TOMORROW. CM TO CONTINUE TO FOLLOW AND ASSIST WITH PLACEMENT FOR [facility] CARE. Tom Clark, CASE MANAGEMENT DCP- Discharge Planning Updated by [id number]: Arabella Jo on 06/22/18 5:[address] CM spoke with patient she agrees that she can't return to her home alone. She states she is to weak. CM attempted to contact Grand-daughter Ricardo several times today to discuss Long -term fdc care. CM could not get in touch with her. Voicemail is full. CM will continue to follow and assist with discharge planning / needs. DCP- Discharge Planning Updated by [id number]: Nasrin Layne on 06/21/18 3:[address] CM received call back from Nicolas at [facility] stating they have declined patient for SNF. Nicolas states patient is out of SNF days. States she only had 59 wellness days since last SNF. They recommend [facility] placement. CM will follow up with patient / family in the morning regarding discharge planning. DCP- Discharge Planning Updated by [id number]: Nasrin Layne on 06/21/18 2:[address] CM called and spoke with Nicolas at [facility] about SNF referral. Faxed records as requested. Awaiting determination of acceptance. DCP- Discharge Planning Updated by [id number]: Mary Scruggs on 06/20/18 4:[address] Patient Name: MATHEW EMANUEL Admission Status: ER Accout number: [id number] Admission Date: 06-17-2018 : 1935 Admission Diagnosis: Attending: RUBY KAPOOR Current LOS: 3 Anticipated DC Date: 06-21-2018 Planned Disposition: Long-Term Facility Primary Insurance: MEDICARE A & B Discharge Planning Comments: CM MET WITH PATIENT AND SHE STATED TO CALL HER GRANDDAUGHTER (RICARDO) TO DISCUSS HER DISCHARGE NEEDS AND PLANS. PATIENT LIVES ALONE AND HAS 1 STEP TO ENTER HOME. PATIENTS PCP IS DR. BAXTER AND USES [facility]. PATIENTS GRANDDAUGHTER STATED SHE HAD BEEN IN [facility] IN THE PAST AND WOULD LIKE FOR PATIENT TO GO THERE AT DISCHARGE. PATIENT IS CURRENT WITH [facility] PER GRANDDAUGHTER. PATIENT HAS A WHEELCHAIR, WALKER, AND SHOWER CHAIR AT HOME. PATIENT AGREED TO [facility] AND VERBAL AZEEM WAS BY GRANDDAUGHTER (RICARDO). CM WILL FAX INFO IN THE AM TO [facility]. CM WILL CONTINUE TO FOLLOW PATIENT WITH D/C NEEDS AND PLANS. PCP [facility] RICARDO (GRANDDAUGHTER) [phone] Tile Grinder: Mary Scruggs DCP- Discharge Planning Updated by [id number]: Kelly Faye on 06/18/18 6:[address] CM REVISITED THIS AM. THE PATIENT IS MORE AWAKE BUT VERY SHORT OF BREATH. SHE STATES SHE HAS BEEN TO A REHAB PREVIOUSLY PERRY ??? . SHE COULD NOT REMEBER. PERHAPS [facility]. SHE WILL CONSIDER SKILLED STAY AGAIN. SHE GAVE PERMISSION TO SPEAK WITH HER SISTER ,GURU. SHE STATES GURU IS A TWIN. THE TWIN SISTERS LIVE TOGETHER BUT SHE LIVES ALONE. GURU'S ADDRESS IS LISTED THE SAME THE PATIENT. PREVIOUSLY STATED A VM MESSAGE WAS LEFT. CM AWAITING CB. DCP- Discharge Planning Updated by [id number]: Kelly Faye on 06/18/18 5:[address] PATIENT CANNOT PARTICIPATE IN DISCHARGE PLANNING. OT ATTEMPTED TO TREAT TODAY WITHOUT SUCCESS SHE WAS TOO LETHARGIC. PATIENT HAD AMBULATED 130 FT W/ 30% ASSIST. SHE IS BARELY RESPONDING AT THIS TIME. ?? REPEAT CAT OF THE HEAD ?? TC TO GURU PAIGE THE SISTER TO THE PATIENT TO DISCUSS DISCHARGE. PATIENT NOTED TO LIVE IN THE [facility]. CM TO FOLLOW UP IN THE AM. DCPIA - Discharge Planning Initial Assessment Updated by [id number]: Mary Scruggs on 06/20/18 5:33 pm * Is the patient Alert and Oriented? Yes * How many steps to enter\\exit or inside your home? * PCP DR. BAXTER * Pharmacy [facility] * Preadmission Environment Home Alone * ADLs Partial Dependent * Partial ADLs (Assistance needed) Bathing Dressing Eating Medication Management * Equipment Shower Chair Walker Wheelchair * List name and contact numbers for known caregivers / representatives who currently or will assist patient after discharge: RICARDO (GRANDDAUGHTER) [phone] * Verbal permission to speak to the caregivers and representatives has been obtained from the patient. Yes * Community resources currently utilized Home Health * Please name any agencies selected above. [facility] CURRENT * Additional services required to return to the preadmission environment? Yes * Can the patient safely return to the preadmission environment? No * Has this patient been hospitalized within the prior 30 days at any hospital? No Coverage Notice Reviewer: [id number] - Mary Scruggs Notice Issued Date-Time: 06/20/2018 16:45 Notice Type: IM Discharge Notice Notice Delivered To: Family Member Relationship to Patient: Rosa Estate Planning Director Name: RICARDO AGUILAR Delivery Method: PHONE - Phone Gabrielle Days: Prior Verbal Notification: Recipient Understood Notice: Yes Recipient Signature: Med Rec Note Co-signed by Attending: Coverage Notice Comment: Reviewer: [id number] - Tom Clark Notice Issued Date-Time: 06/27/2018 16:30 Notice Type: Patient Choice Letter Notice Delivered To: Family Member Relationship to Patient: Rosa Estate Planning Director Name: RICARDO AGUILAR Delivery Method: HAND - Hand Delivered Gabrielle Days: Prior Verbal Notification: Recipient Understood Notice: Yes Recipient Signature: Yes Med Rec Note Co-signed by Attending: Coverage Notice Comment: 1- RUANO PATEL, 2-[facility] FOR [facility] Last DP export: 07/12/18 8:33 a Patient Name: MATHEW EMANUEL Page [id number] at 1132 All edits/amendments must be made on the electronic document DICTATION DATE: 07/12/18 1131 SET UP MECHANIC HEADING MACHINES: JABIER 07/12/18 1131 RPT#: [id number] DC DATE: STATUS: ADM IN [facility] [address] [place] [address] END OF REPORT
[2018-07-12 12:41] VITALS: BP 115/61
--- NOTE | 2018-07-12 12:58 | NUR ---
Nutrition Follow Up: Pt stated that her appetite is improving. She said that she eats what she can but sometimes the food makes her "have an upset stomach." Pt said that she has been drinking Ensure and milk. RD encouraged pt to continue increasing po intake as able. Diet: Regular Puree; Ensure TID PO Intake: 64% meal avg BM: 07/12/18 Meds and labs reviewed Rec continue current diet, supplement regimen. RD following.
--- NOTE | 2018-07-12 16:17 | NUR ---
Rehab Note- Acute INpatient Rehab prescreen order received to re-eval patient. PT & OT Evals completed. Will visit with the patient. Have spoken to ZONIA Maguire about the patient & the APS involvement & concerns. Will follow at this time. Thank you for this referral! Coco Rasheed RN CLinical Liaison, [facility]
[2018-07-12 16:42] VITALS: BP 124/57
--- NOTE | 2018-07-12 16:54 | NUR ---
PT SITTING UP FOR DINNER, DENIES NEEDS. WCTM.
[2018-07-12 23:00] VITALS: BP 117/63
[2018-07-13 04:07] VITALS: BP 109/50
[2018-07-13 07:22] LABS: ALBUMIN 2.8 g/dL (3.4-5.0); BILIRUBIN - TOTAL 0.22 mg/dL (0.2-1.3); CALCIUM 8.5 mg/dL (8.5-10.1); CREATININE - SERUM 0.8 mg/dL (0.6-1.3); MAGNESIUM - SERUM 2.3 mg/dL (1.8-2.4); PROTEIN - SERUM 6.6 g/dL (6.4-8.2)
--- NOTE | 2018-07-13 08:00 | NUR ---
AWAKE AND ALERT. ORIENTED TO SELF ONLY. ATTEMPTS TO REORIENT WITHOUT SUCCESS. LUNGS ARE CLEAR BILATERALLY, NO COUGH NOTED. SKIN IS INTACT WITHOUT REDNESS. DENIES NEEDS.
[2018-07-13 08:05] LABS: EOSINOPHILS 1.7 % (0-7); HEMATOCRIT 33.6 % (36.0-48.0); IMMATURE GRANULOCYTES 0.7 % (0-5); LYMPHOCYTES 34.9 % (15-50); MCH 30.6 pg (26.0-34.0); MCHC 32.7 g/dL (31.0-37.0); MCV 93.6 fL (80.0-100.0); MEAN PLATELET VOLUME 9.5 fL (7.4-10.4); MONOCYTES 8.1 % (2-11); NEUTROPHILS 53.6 % (40-80); PLATELET COUNT 342 10x3/uL (130-400); RBC 3.59 10x6/uL (4.00-5.40); RDW 14.2 % (11.5-14.5); WBC 5.9 10x3/uL (4.8-10.8)
[2018-07-13 08:24] VITALS: BP 130/89
--- NOTE | 2018-07-13 08:53 | MORECARE ---
CASE MANAGEMENT DISCHARGE SUMMARY PATIENT: MATHEW EMANUEL UNIT: [id number] ADM DATE: 06/17/18 AGE: 82 : 39 SEX: F ROOM/BED: D.1208 AUTHOR: JOSELYN,DOC PHYSICIAN: REFERRING PHYSICIAN: RUBY COLLINS MD DATE OF SERVICE: 07/13/18 Discharge Plan Patient Name: MATHEW EMANUEL Facility: [facility]:[place] : 1935 Planned Disposition: Residential Facility Anticipated Discharge Date: 06/21/18 Discharge Date: Expected LOS: 4 Initial Reviewer: [email or web address] Initial Review Date: 06/20/2018 Generated: 07/13/18 9:53 am Comments DCP- Discharge Planning Updated by [id number]: Ting Kumar on 07/12/18 10:[address] Patient Name: MATHEW EMANUEL Admission Status: ER Accout number: [id number] Admission Date: 06-17-2018 : 1935 Admission Diagnosis:HISTORY OF FALLING Attending: RUBY KAPOOR Current LOS: 25 Anticipated DC Date: 06-21-2018 Planned Disposition: Residential Facility Primary Insurance: MEDICARE A & B Discharge Planning Comments: CM CALLED AND [place] [facility] DANIEL MCKEON AT OFFICE NUMBER [phone] EXT [phone]. WAITING FOR CALL BACK TO DETERMINE WHERE PATIENT WILL BE DISCHARGED TO. CM WILL FOLLOW AND ASSIST. Salvage Worker: Ting Kumar Appended by Ting Kumar on 07/12/2018 11:24 STONECUTTER: CM SPOKE WITH APS, PLAN IS TO HAVE IN PT REHAB RE-[facility]ALUAL[facility] FOR INPTREHAB, OR [facility]BE [facility]. HE STATES THE HOME ENVIRONMENT IS SAFE. DCP- Discharge Planning Updated by [email or web address]: Kelly Faye on 07/09/18 4:[address] M SPOKE WITH THE PATIENT AT HER REQUEST. SHE STATES DR BAXTER HAS ARRANGED HOME HEALTH SERVICES FOR HER. CM ADVISED APS WAS GOING TO ASSIST GETTING HER SAFE, RELIABLE CARE. NO VISIT BY APS TO PATIENTS BEDSIDE. DCP- Discharge Planning Updated by [email or web address]: Nasrin Layne on 07/09/18 2:[address] CM received call from Daniel Mckeon with APS about patient. CM reported to Daniel that CM had attempted to reach family several times without returned calls regarding discharge planning. That family told CM that they were working with [facility] and [facility] on making financial arrangements for placement, but [facility] states that no family has ever come to the facility to make arrangements. CM faxed records as requested to Daniel at [phone] (cell [phone]) DCP- Discharge Planning Updated by [id number]: Nasrin Layne on 07/06/18 1:[address] CM called APS and reported that patient family is not returning calls or assisting with placement arrangements. Case #[id number]. DCP- Discharge Planning Updated by [id number]: Nasrin Layne on 07/05/18 10:[address] CM attempting to reach patient's family regarding placement. CM called patient's granddaughter, Ricardo Aguilar at [phone], who was supposed to call CM on 06/29/18 about status of placement. CM left message on voice mail to return call. CM called patient's sister, Robina Paige at [phone], attempting to reach Ricardo. Left message for Robina to return my call. CM will continue to follow and assist with discharge planning. If CM does not get a return call from family today, CM will call APS. DCP- Discharge Planning Updated by [id number]: Nasrin Layne on 07/02/18 10:[address] [facility] of family making financial arrangements for placement. CM spoke with Nicolas who informed CM that no one from the family has been there to make financial arrangements. CM called patient's granddaughter, Ricardo Aguilar at [phone], who was supposed to call CM on 06/29/18 about status of placement. CM left message on voice mail to return call. CM called patient's sister, Robina Paige at [phone], attempting to reach Ricardo. Left message for Robina to return my call. DCP- Discharge Planning Updated by [id number]: Mary Scruggs on 06/28/18 7:[address] Patient Name: MATHEW EMANUEL Admission Status: ER Accout number: [id number] Admission Date: 06-17-2018 : 1935 Admission Diagnosis:HISTORY OF FALLING Attending: RUBY KAPOOR Current LOS: 11 Anticipated DC Date: 06-21-2018 Planned Disposition: Residential Facility Primary Insurance: MEDICARE A & B Discharge Planning Comments: CM WAS CALLED TO PATIENTS ROOM AND THE GRANDDAUGHTER (RICARDO) STATED SHE WAS FORFIETING THE CD TO PAY A LOAN AND THAT WOULD PROBABLY HELP HER GRANDMOTHER BE ACCEPTED TO [facility]. RICARDO STATED SHE IS GOING TO [facility] TOMORROW AND WILL NOTIFY KATY THE OFFSET SECOND PRESS OPERATOR TOMORROW REGARDING THIS SITUATION. Salvage Worker: Mary Scruggs DCP- Discharge Planning Updated by [id number]: Tom Clark on 06/27/18 4:[address] Patient Name: MATHEW EMANUEL Encounter No: [id number] : 1935 Primary Insurance: MEDICARE A & B Anticipated DC Date: 06-21-2018 Planned Disposition: Residential Facility External Planned Provider: [facility], [facility] MEDICAID BED DCP follow-up note: CM REVIEWED CHART WHICH INDICATES PT CANNOT HAVE HALFWAY REHAB DUE TO BEING OUT OF HALFWAY DAYS AND DID NOT HAVE 60 WELL DAYS TO OBTAIN MORE HALFWAY DAYS. CM SPOKE TO PT IN ROOM WHO REPORTS THAT SHE WILL DO WHATEVER RICARDO, HER GRANDDAUGHTER, THINKS IS BEST. PT REPORTS THAT RICARDO IS TRYING TO GET HER BACK TO THE [facility]. CM CALLED RICARDO SONA, , WHO INFORMED CM THAT SHE WAS NOT INFORMED THAT PT IS OUT OF SKILLED DAYS AND ASKED FOR OPTIONS. CM EXPLAINED THAT PT WILL NEED TO EITHER PAY FOR [facility] CARE OR BE QUALIFIED OF MEDICAID FOR [facility]. RICARDO ASKED CM TO CHECK WITH [facility] AND [facility] FOR [facility] AVAILABILITY AND RICARDO WILL TRY TO DEAL WITH PT'S CERTIFICATE OF DEPOSIT AT THE BANK THAT IS "TIED" TO A LOAN FOR A FAMILY MEMBER. CM CALLED [facility], SPOKE TO NICOLAS WHO INFORMED CM THAT THEY HAVE TRIED TO GET PT QUALIFIED FOR MEDICAID AND THAT PT'S FINANCIAL SITUATION WITH FAMILY IS COMPLICATED AND PT DOES NOT QUALIFY FOR MEDICAID AND PT IS NOT ABLE TO PAY PRIVATE PAY RATES HERSELF FOR [facility]. CM CALLED [facility], SPOKE TO BECKY, ASKED ABOUT [facility] BEDS. BECKY ASKED ABOUT FINANCIAL ASSETS FOR POSSIBLE MEDICAID. CM EXPLAINED THAT CM WAS ADVISED BY ANOTHER [facility] THAT PT DID NOT QUALIFY FOR MEDICAID. [facility] REPORTS BEDS AVAILABLE BUT THAT PT WILL NEED TO PAY UPFRONT PRIVATELY FOR [facility] CARE. CM CALLED AND SPOKE TO GRANDDAUGHTER, RICARDO AGUILAR, ; ADVISED OF ABOVE INFORMATION. RICARDO WILL TALK TO [facility] IN THE MORNING, 06-28-18, AND TRY TO DEAL WITH THE CERTIFICATE OF DEPOSIT AND SEE IF SHE CAN GET PT TO QUALIFY FOR MEDICAID. CM LEFT CM CONTACT INFORMATION WITH RICARDO AND ASKED HER TO CALL CM WITH UPDATE TOMORROW. CM TO CONTINUE TO FOLLOW AND ASSIST WITH PLACEMENT FOR [facility]. Tom Clark, CASE MANAGEMENT DCP- Discharge Planning Updated by [id number]: Arabella Jo on 06/22/18 5:[address] CM spoke with patient she agrees that she can't return to her home alone. She states she is to weak. CM attempted to contact Grand-daughter Ricardo several times today to discuss Long -term shelter care. CM could not get in touch with her. Voicemail is full. CM will continue to follow and assist with discharge planning / needs. DCP- Discharge Planning Updated by [id number]: Nasrin Layne on 06/21/18 3:[address] CM received call back from Nicolas at [facility] stating they have declined patient for SNF. Nicolas states patient is out of SNF days. States she only had 59 wellness days since last SNF. They recommend [facility] placement. CM will follow up with patient / family in the morning regarding discharge planning. DCP- Discharge Planning Updated by [id number]: Nasrin Layne on 06/21/18 2:[address] CM called and spoke with Nicolas at [facility] about SNF referral. Faxed records as requested. Awaiting determination of acceptance. DCP- Discharge Planning Updated by [id number]: Mray Scruggs on 06/20/18 4:[address] Patient Name: MATHEW EMANUEL Admission Status: ER Accout number: [id number] Admission Date: 06-17-2018 : 1935 Admission Diagnosis: Attending: RUBY KAPOOR Current LOS: 3 Anticipated DC Date: 06-21-2018 Planned Disposition: Residential Facility Primary Insurance: MEDICARE A & B Discharge Planning Comments: CM MET WITH PATIENT AND SHE STATED TO CALL HER GRANDDAUGHTER (RICARDO) TO DISCUSS HER DISCHARGE NEEDS AND PLANS. PATIENT LIVES ALONE AND HAS 1 STEP TO ENTER HOME. PATIENTS PCP IS DR. BAXTER AND USES [facility]. PATIENTS GRANDDAUGHTER STATED SHE HAD BEEN IN [facility] IN THE PAST AND WOULD LIKE FOR PATIENT TO GO THERE AT DISCHARGE. PATIENT IS CURRENT WITH [facility] PER GRANDDAUGHTER. PATIENT HAS A WHEELCHAIR, WALKER, AND SHOWER CHAIR AT HOME. PATIENT AGREED TO [facility] AND VERBAL AZEEM WAS BY GRANDDAUGHTER (RICARDO). CM WILL FAX INFO IN THE AM TO [facility]. CM WILL CONTINUE TO FOLLOW PATIENT WITH D/C NEEDS AND PLANS. PCP [facility] RICARDO (GRANDDAUGHTER) [phone] Salvage Worker: Mary Scruggs DCP- Discharge Planning Updated by [id number]: Kelly Faye on 06/18/18 6:[address] CM REVISITED THIS AM. THE PATIENT IS MORE AWAKE BUT VERY SHORT OF BREATH. SHE STATES SHE HAS BEEN TO A REHAB PRE[facility] [place] ??? . SHE COULD NOT REMEBER. PERHAPS [facility]. SHE WILL CONSIDER SKILLED STAY AGAIN. SHE GAVE PERMISSION TO SPEAK WITH HER SISTER ,GURU. SHE STATES GURU IS A TWIN. THE TWIN SISTERS LIVE TOGETHER BUT SHE LIVES ALONE. GURU'S ADDRESS IS LISTED THE SAME THE PATIENT. PREVIOUSLY STATED A VM MESSAGE WAS LEFT. CM AWAITING CB. DCP- Discharge Planning Updated by [id number]: Kelly Faye on 06/18/18 5:[address] PATIENT CANNOT PARTICIPATE IN DISCHARGE PLANNING. OT ATTEMPTED TO TREAT TODAY WITHOUT SUCCESS SHE WAS TOO LETHARGIC. PATIENT HAD AMBULATED 130 FT W/ 30% ASSIST. SHE IS BARELY RESPONDING AT THIS TIME. ?? REPEAT CAT OF THE HEAD ?? TC TO GURU PAIGE THE SISTER TO THE PATIENT TO DISCUSS DISCHARGE. PATIENT NOTED TO LIVE IN THE [facility]. CM TO FOLLOW UP IN THE AM. DCPIA - Discharge Planning Initial Assessment Updated by [id number]: Mary Scruggs on 06/20/18 5:33 pm * Is the patient Alert and Oriented? Yes * How many steps to enter\\exit or inside your home? * PCP DR. BAXTER * Pharmacy [facility] * Preadmission Environment Home Alone * ADLs Partial Dependent * Partial ADLs (Assistance needed) Bathing Dressing Eating Medication Management * Equipment Shower Chair Walker Wheelchair * List name and contact numbers for known caregivers / representatives who currently or will assist patient after discharge: RICARDO (GRANDDAUGHTER) [phone] * Verbal permission to speak to the caregivers and representatives has been obtained from the patient. Yes * Community resources currently utilized Home Health * Please name any agencies selected above. [facility] CUR[facility] * Additional services required to return to the preadmission environment? Yes * Can the patient safely return to the preadmission environment? No * Has this patient been hospitalized within the prior 30 days at any hospital? No Coverage Notice Reviewer: [id number] - Mary Scruggs Notice Issued Date-Time: 06/20/2018 16:45 Notice Type: IM Discharge Notice Notice Delivered To: Family Member Relationship to Patient: Rosa Neck Band Maker Name: RICARDO AGUILAR Delivery Method: PHONE - Phone Gabrielle Days: Prior Verbal Notification: Recipient Understood Notice: Yes Recipient Signature: Med Rec Note Co-signed by Attending: Coverage Notice Comment: Reviewer: [id number] - Tom Clark Notice Issued Date-Time: 06/27/2018 16:30 Notice Type: Patient Choice Letter Notice Delivered To: Family Member Relationship to Patient: Rosa Neck Band Maker Name: RICARDO AGUILAR Delivery Method: HAND - Hand Delivered Gabrielle Days: Prior Verbal Notification: Recipient Understood Notice: Yes Recipient Signature: Yes Med Rec Note Co-signed by Attending: Coverage Notice Comment: 1- [facility], 2-[facility] Reviewer: [id number] - Ting Kumar Notice Issued Date-Time: 07/13/2018 8:51 Notice Type: IM Discharge Notice Notice Delivered To: Patient Relationship to Patient: Self Neck Band Maker Name: Delivery Method: HAND - Hand Delivered Gabrielle Days: Prior Verbal Notification: Recipient Understood Notice: Yes Recipient Signature: Yes Med Rec Note Co-signed by Attending: Coverage Notice Comment: Last DP export: 07/12/18 10:32 a Patient Name: MATHEW EMANUEL Page [id number] at 0853 All edits/amendments must be made on the electronic document DICTATION DATE: 07/13/18 0852 PSYCHOLOGY INTERN: JABIER 07/13/18 0852 RPT#: [id number] DC DATE: STATUS: ADM IN [facility] [address] [place] [address] END OF REPORT
--- NOTE | 2018-07-13 09:06 | MORECARE ---
CASE MANAGEMENT DISCHARGE SUMMARY PATIENT: MATHEW EMANUEL UNIT: [id number] ADM DATE: 06/17/18 AGE: 82 : 39 SEX: F ROOM/BED: D.1208 AUTHOR: JOSELYNDOC PHYSICIAN: REFERRING PHYSICIAN: RUBY COLLINS MD DATE OF SERVICE: 07/13/18 Discharge Plan Patient Name: MATHEW EMANUEL Facility: [facility]:[place] : 1935 Planned Disposition: Jail Facility Anticipated Discharge Date: 06/21/18 Discharge Date: Expected LOS: 4 Initial Reviewer: [id number] Initial Review Date: 06/20/2018 Generated: 07/13/18 10:05 am Comments DCP- Discharge Planning Updated by [id number]: Ting Kumar on 07/13/18 8:[address] Patient Name: MATHEW EMANUEL Admission Status: ER Accout number: [id number] Admission Date: 06-17-2018 : 1935 Admission Diagnosis:HISTORY OF FALLING Attending: RUBY KAPOOR Current LOS: 26 Anticipated DC Date: 06-21-2018 Planned Disposition: Jail Facility Primary Insurance: MEDICARE A & B Discharge Planning Comments: CM SPOKE WITH [facility] IN [facility]IENT [facility] AND IS WORKING ON GETTING PATIENT ACCEPTED. CM WILL NOTIFY DANIEL WITH APS[place] [id number].CM WILL FOLLOW AND ASSIST NEEDED WITH DC PLANNING/NEEDS. IM SIGNED. Laborer Laboratory: Ting Kumar Appended by Ting Kumar on 07/13/2018 9:04 OVERCOIL STEPPER: DANIEL MCKEON WITH APS PHONE NUMBER IS [phone] EXT [phone]. APS CASE # [id number]. DCP- Discharge Planning Updated by [id number]: Ting Kumar on 07/12/18 10:[address] Patient Name: MATHEW EMANUEL Admission Status: ER Accout number: [id number] Admission Date: 06-17-2018 : 1935 Admission Diagnosis:HISTORY OF FALLING Attending: RUBY KAPOOR Current LOS: 25 Anticipated DC Date: 06-21-2018 Planned Disposition: Jail Facility Primary Insurance: MEDICARE A & B Discharge Planning Comments: CM CALLED AND LEFT [facility] FOR APS DANIEL MCKEON AT OFFICE NUMBER [phone] EXT [phone]. WAITING FOR CALL BACK TO DETERMINE WHERE PATIENT WILL BE DISCHARGED TO. CM WILL FOLLOW AND ASSIST. Laborer Laboratory: Ting Kumar Appended by Ting Kumar on 07/12/2018 11:24 OVERCOIL STEPPER: CM SPOKE WITH APS, PLAN IS TO HAVE IN PT REHAB [facility], OR [facility]BE [facility]. HE STATES THE HOME ENVIRONMENT IS SAFE. DCP- Discharge Planning Updated by [id number]: Kelly Faye on 07/09/18 4:[address] M SPOKE WITH THE PATIENT AT HER REQUEST. SHE STATES DR BAXTER HAS ARRANGED HOME HEALTH SERVICES FOR HER. CM ADVISED APS WAS GOING TO ASSIST GETTING HER SAFE, RELIABLE CARE. NO VISIT BY APS TO PATIENTS BEDSIDE. DCP- Discharge Planning Updated by [id number]: Nasrin Layne on 07/09/18 2:[address] CM received call from Daniel Mckeon with APS about patient. CM reported to Daniel that CM had attempted to reach family several times without returned calls regarding discharge planning. That family told CM that they were working with [facility] on making financial arrangements for placement, but [facility] states that no family has ever come to the facility to make arrangements. CM faxed records as requested to Daniel at [phone] (cell [phone]) DCP- Discharge Planning Updated by [id number]: Nasrin Layne on 07/06/18 1:[address] CM called APS and reported that patient family is not returning calls or assisting with placement arrangements. Case #[id number]. DCP- Discharge Planning Updated by [id number]: Nasrin Layne on 07/05/18 10:[address] CM attempting to reach patient's family regarding placement. CM called patient's granddaughter, Ricardo Aguilar at [phone], who was supposed to call CM on 06/29/18 about status of placement. CM left message on voice mail to return call. CM called patient's sister, Robina Paige at [phone], attempting to reach Ricardo. Left message for Robina to return my call. CM will continue to follow and assist with discharge planning. If CM does not get a return call from family today, CM will call APS. DCP- Discharge Planning Updated by [id number]: Nasrin Layne on 07/02/18 10:[address] CM called [facility] to check status of family making financial arrangements for placement. CM spoke with Nicolas who informed CM that no one from the family has been there to make financial arrangements. CM called patient's granddaughter, Ricardo Aguilar at [phone], who was supposed to call CM on 06/29/18 about status of placement. CM left message on voice mail to return call. CM called patient's sister, Robina Paige at [phone], attempting to reach Ricardo. Left message for Robina to return my call. DCP- Discharge Planning Updated by [id number]: Mary Scruggs on 06/28/18 7:[address] Patient Name: MATHEW EMANUEL Admission Status: ER Accout number: [id number] Admission Date: 06-17-2018 : 1935 Admission Diagnosis:HISTORY OF FALLING Attending: RUBY KAPOOR Current LOS: 11 Anticipated DC Date: 06-21-2018 Planned Disposition: Jail Facility Primary Insurance: MEDICARE A & B Discharge Planning Comments: CM WAS CALLED TO PATIENTS ROOM AND THE GRANDDAUGHTER (RICADRO) STATED SHE WAS FORFIETING THE CD TO PAY A LOAN AND THAT WOULD PROBABLY HELP HER GRANDMOTHER BE ACCEPTED TO [facility]. RICARDO STATED SHE IS GOING TO [facility] TOMORROW AND WILL NOTIFY KATY THE PAROLE OR PROBATION OFFICER TOMORROW REGARDING THIS SITUATION. Laborer Laboratory: Mary Scruggs DCP- Discharge Planning Updated by [id number]: Tom Clark on 06/27/18 4:[address] Patient Name: MATHEW EMANUEL Encounter No: [id number] : 1935 Primary Insurance: MEDICARE A & B Anticipated DC Date: 06-21-2018 Planned Disposition: Jail Facility External Planned Provider: [facility], USP CARE MEDICAID BED DCP follow-up note: CM REVIEWED CHART WHICH INDICATES PT CANNOT HAVE RETIREMENT REHAB DUE TO BEING OUT OF RETIREMENT DAYS AND DID NOT HAVE 60 WELL DAYS TO OBTAIN MORE RETIREMENT DAYS. CM SPOKE TO PT IN ROOM WHO REPORTS THAT SHE WILL DO WHATEVER RICARDO, HER GRANDDAUGHTER, THINKS IS BEST. PT REPORTS THAT RICARDO IS TRYING TO GET HER BACK TO THE [facility]. CM CALLED RICARDO AGUILAR, , WHO INFORMED CM THAT SHE WAS NOT INFORMED THAT PT IS OUT OF SKILLED DAYS AND ASKED FOR OPTIONS. CM EXPLAINED THAT PT WILL NEED TO EITHER PAY FOR INTAKE COUNSELOR CARE OR BE QUALIFIED OF MEDICAID FOR INTAKE COUNSELOR CARE. RICARDO ASKED CM TO CHECK WITH [facility] FOR IN[facility]SEL[facility] CARE AVAILABILITY AND RICARDO WILL TRY TO DEAL WITH PT'S CERTIFICATE OF DEPOSIT AT THE BANK THAT IS "TIED" TO A LOAN FOR A FAMILY MEMBER. CM CALLED [facility], SPOKE TO NICOLAS WHO INFORMED CM THAT THEY HAVE TRIED TO GET PT QUALIFIED FOR MEDICAID AND THAT PT'S FINANCIAL SITUATION WITH FAMILY IS COMPLICATED AND PT DOES NOT QUALIFY FOR MEDICAID AND PT IS NOT ABLE TO PAY PRIVATE PAY RATES HERSELF FOR INTAKE COUNSELOR CARE. CM [facility], SPOKE TO BECKY, ASKED ABOUT INTAKE COUNSELOR CARE BEDS. BECKY ASKED ABOUT FINANCIAL ASSETS FOR POSSIBLE MEDICAID. CM EXPLAINED THAT CM WAS ADVISED BY ANOTHER [facility] THAT PT DID NOT QUALIFY FOR MEDICAID. BECKY REPORTS BEDS AVAILABLE BUT THAT PT WILL NEED TO PAY UPFRONT PRIVATELY FOR USP CARE. CM CALLED AND SPOKE TO GRANDDAUGHTER, RICARDO AGUILAR, ; ADVISED OF ABOVE INFORMATION. RICARDO WILL TALK TO [facility] IN THE MORNING, 06-28-18, AND TRY TO DEAL WITH THE CERTIFICATE OF DEPOSIT AND SEE IF SHE CAN GET PT TO QUALIFY FOR MEDICAID. CM LEFT CM CONTACT INFORMATION WITH RICARDO AND ASKED HER TO CALL CM WITH UPDATE TOMORROW. CM TO CONTINUE TO FOLLOW AND ASSIST WITH PLACEMENT FOR INTAKE COUNSELOR CARE. Tom Clark, CASE MANAGEMENT DCP- Discharge Planning Updated by [id number]: Arabella Jo on 06/22/18 5:[address] CM spoke with patient she agrees that she can't return to her home alone. She states she is to weak. CM attempted to contact Grand-daughter Ricardo several times today to discuss Long -term custodial care. CM could not get in touch with her. Voicemail is full. CM will continue to follow and assist with discharge planning / needs. DCP- Discharge Planning Updated by [id number]: Nasrin Layne on 06/21/18 3:[address] CM received call back from Nicolas at [facility] stating they have declined patient for SNF. Nicolas states patient is out of SNF days. States she only had 59 wellness days since last SNF. They recommend [facility] placement. CM will follow up with patient / family in the morning regarding discharge planning. DCP- Discharge Planning Updated by [id number]: Nasrin Layne on 06/21/18 2:[address] CM called and spoke with Nicolas at [facility] about SNF referral. Faxed records as requested. Awaiting determination of acceptance. DCP- Discharge Planning Updated by [id number]: Mary Scruggs on 06/20/18 4:[address] Patient Name: MATHEW EMANUEL Admission Status: ER Accout number: [id number] Admission Date: 06-17-2018 : 1935 Admission Diagnosis: Attending: RUBY KAPOOR Current LOS: 3 Anticipated DC Date: 06-21-2018 Planned Disposition: Jail Facility Primary Insurance: MEDICARE A & B Discharge Planning Comments: CM MET WITH PATIENT AND SHE STATED TO CALL HER GRANDDAUGHTER (RICARDO) TO DISCUSS HER DISCHARGE NEEDS AND PLANS. PATIENT LIVES ALONE AND HAS 1 STEP TO ENTER HOME. PATIENTS PCP IS DR. BAXTER AND USES [facility]. PATIENTS GRANDDAUGHTER STATED SHE HAD BEEN IN [facility] IN THE PAST AND WOULD LIKE FOR PATIENT TO GO THERE AT DISCHARGE. PATIENT IS CURRENT WITH [facility] PER GRANDDAUGHTER. PATIENT HAS A WHEELCHAIR, WALKER, AND SHOWER CHAIR AT HOME. PATIENT AGREED TO [facility] AND VERBAL AZEEM WAS BY GRANDDAUGHTER (RICARDO). CM WILL FAX INFO IN THE AM TO [facility]. CM WILL CONTINUE TO FOLLOW PATIENT WITH D/C NEEDS AND PLANS. PCP [facility] RICARDO (GRANDDAUGHTER) [phone] Laborer Laboratory: Mary Scruggs DCP- Discharge Planning Updated by [id number]: Kelly Martin on 06/18/18 6:[address] CM REVISITED THIS AM. THE PATIENT IS MORE AWAKE BUT VERY SHORT OF BREATH. SHE STATES SHE HAS BEEN TO A REHAB PREVI[facility]SLY [place] ??? . SHE COULD NOT REMEBER. PERHAPS [facility]. SHE WILL CONSIDER SKILLED STAY AGAIN. SHE GAVE PERMISSION TO SPEAK WITH HER SISTER ,GURU. SHE STATES GURU IS A TWIN. THE TWIN SISTERS LIVE TOGETHER BUT SHE LIVES ALONE. GURU'S ADDRESS IS LISTED THE SAME THE PATIENT. PREVIOUSLY STATED A VM MESSAGE WAS LEFT. CM AWAITING CB. DCP- Discharge Planning Updated by [id number]: Kelly Faye on 06/18/18 5:[address] PATIENT CANNOT PARTICIPATE IN DISCHARGE PLANNING. OT ATTEMPTED TO TREAT TODAY WITHOUT SUCCESS SHE WAS TOO LETHARGIC. PATIENT HAD AMBULATED 130 FT W/ 30% ASSIST. SHE IS BARELY RESPONDING AT THIS TIME. ?? REPEAT CAT OF THE HEAD ?? TC TO GURU PAIGE THE SISTER TO THE PATIENT TO DISCUSS DISCHARGE. PATIENT NOTED TO LIVE IN THE [facility]. CM TO FOLLOW UP IN THE AM. DCPIA - Discharge Planning Initial Assessment Updated by [id number]: Maryerasmo Scruggs on 06/20/18 5:33 pm * Is the patient Alert and Oriented? Yes * How many steps to enter\\exit or inside your home? * PCP DR. BAXTER * Pharmacy [facility] * Preadmission Environment Home Alone * ADLs Partial Dependent * Partial ADLs (Assistance needed) Bathing Dressing Eating Medication Management * Equipment Shower Chair Walker Wheelchair * List name and contact numbers for known caregivers / representatives who currently or will assist patient after discharge: RICARDO (GRANDDAUGHTER) [phone] * Verbal permission to speak to the caregivers and representatives has been obtained from the patient. Yes * Community resources currently utilized Home Health * Please name any agencies selected above. [facility] CURRENT * Additional services required to return to the preadmission environment? Yes * Can the patient safely return to the preadmission environment? No * Has this patient been hospitalized within the prior 30 days at any hospital? No Coverage Notice Reviewer: [id number] - Ting Kumar Notice Issued Date-Time: 07/13/2018 8:51 Notice Type: IM Discharge Notice Notice Delivered To: Patient Relationship to Patient: Self Sizing Machine Tender Name: Delivery Method: HAND - Hand Delivered Gabrielle Days: Prior Verbal Notification: Recipient Understood Notice: Yes Recipient Signature: Yes Med Rec Note Co-signed by Attending: Coverage Notice Comment: Reviewer: [id number] - Tom Clark Notice Issued Date-Time: 06/27/2018 16:30 Notice Type: Patient Choice Letter Notice Delivered To: Family Member Relationship to Patient: Granddaughter Sizing Machine Tender Name: RICARDO ALSEY Delivery Method: HAND - Hand Delivered Gabrielle Days: Prior Verbal Notification: Recipient Understood Notice: Yes Recipient Signature: Yes Med Rec Note Co-signed by Attending: Coverage Notice Comment: 1- ALDEN PATEL, 2-[facility]OSSI FOR USP CARE Reviewer: [id number] - Mary Scruggs Notice Issued Date-Time: 06/20/2018 16:45 Notice Type: IM Discharge Notice Notice Delivered To: Family Member Relationship to Patient: Granddaughter Sizing Machine Tender Name: RICARDO ALSEY Delivery Method: PHONE - Phone Gabrielle Days: Prior Verbal Notification: Recipient Understood Notice: Yes Recipient Signature: Med Rec Note Co-signed by Attending: Coverage Notice Comment: Last DP export: 07/13/18 7:53 a Patient Name: MATHEW EMANUEL Page [id number] at 0906 All edits/amendments must be made on the electronic document DICTATION DATE: 07/13/18904 WEB PRODUCTION DESIGNER: JABIER 07/13/18904 RPT#: [id number] DC DATE: STATUS: ADM IN [facility] [address] [place] [address] END OF REPORT
[2018-07-13] MEDS ORDERED: PROTONIX40 MG PO (09:25)
[2018-07-13] MEDS ORDERED: ZOFRAN4 MG PO (09:25)
[2018-07-13] MEDS ORDERED: Saline Mist NASAL SP NASAL (09:25)
--- NOTE | 2018-07-13 10:00 | NUR ---
UP TO BR WITH MIN ASSIT OF ONE. VOIDED CLEAR YELLOW URINE WITHOUT DIFFICUTLY. SITTING UP IN CHIAR AT BEDSIDE.
[2018-07-13 11:40] VITALS: BP 120/52
--- NOTE | 2018-07-13 15:02 | NUR ---
OT NOTE: BED MOB WITH SPV; IN ROOM AMBULATION WITH RW AND CGA; TOILETING WITH MIN ASSIST; GROOMING WITH MIN ASSIST; TRANSFERS WITH CGA AND USE OF RW JORDAN HARRIS OTR/Sb
--- NOTE | 2018-07-13 16:17 | NUR ---
REPORT CALLED TO ROSEMARY ROSS RN ON REHAB. ALL QUESTIONS ANSWERED. DISCHARGED TO REHAB VIA WC TO ROOM 1115. DISCHARGE INSTRUCTIONS GIVEN BOTH VERBALLY AND WRITTEN. ALL QUESTIONS ANSWERED. PATIENT VERBALIZED UNDERSTANDING OF SAME. NO NEW PRESCRIPTIONS NEEDED.
--- NOTE | 2018-07-16 10:31 | MORECARE ---
CASE MANAGEMENT DISCHARGE SUMMARY PATIENT: MATHEW EMANUEL UNIT: [id number] ADM DATE: 06/17/18 AGE: 82 : 37 SEX: F ROOM/BED: D.1208 AUTHOR: JOSELYNDOC PHYSICIAN: REFERRING PHYSICIAN: RUBY COLLINS MD DATE OF SERVICE: 07/16/18 Discharge Plan Patient Name: MATHEW EMANUEL Facility: [facility]:[place] : 1935 Planned Disposition: [facility]sp Facility Anticipated Discharge Date: 06/21/18 Discharge Date: 07/13/2018 Expected LOS: 4 Initial Reviewer: [id number] Initial Review Date: 06/20/2018 Generated: 07/16/18 11:30 am Comments DCP- Discharge Planning Updated by [id number]: Ting Kumar on 07/13/18 8:[address] Patient Name: MATHEW EMANUEL Admission Status: ER Accout number: [id number] Admission Date: 06-17-2018 : 1935 Admission Diagnosis:HISTORY OF FALLING Attending: RUBY KAPOOR Current LOS: 26 Anticipated DC Date: 06-21-2018 Planned Disposition: Usp Facility Primary Insurance: MEDICARE A & B Discharge Planning Comments: CM SPOKE WITH [facility] IN INPATIENT [facility]HAB AND IS WORKING ON GETTING PATIENT ACCEPTED. CM WILL NOTIFY DANIEL WITH APS[place] [id number].CM WILL FOLLOW AND ASSIST NEEDED WITH DC PLANNING/NEEDS. IM SIGNED. Traffic Reporter: Ting Kumar Appended by Ting Kumar on 07/13/2018 9:04 SUPPORTABILITY ENGINEER: DANIEL MCKEON WITH APS PHONE NUMBER IS [phone] EXT [phone]. APS CASE # [id number]. DCP- Discharge Planning Updated by [id number]: Ting Kumar on 07/12/18 10:[address] Patient Name: MATHEW EMANUEL Admission Status: ER Accout number: [id number] Admission Date: 06-17-2018 : 1935 Admission Diagnosis:HISTORY OF FALLING Attending: RUBY KAPOOR Current LOS: 25 Anticipated DC Date: 06-21-2018 Planned Disposition: [facility]sp Facility Primary Insurance: MEDICARE A & B Discharge Planning Comments: CM CALLED AND LEFT MSG FOR APS DANIEL MCKEON AT OFFICE NUMBER [phone] EXT [phone]. WAITING FOR CALL BACK TO DETERMINE WHERE PATIENT WILL BE DISCHARGED TO. CM WILL FOLLOW AND ASSIST. Traffic Reporter: Ting Kumar Appended by Ting Kumar on 07/12/2018 11:24 SUPPORTABILITY ENGINEER: CM SPOKE WITH APS, PLAN IS TO HAVE IN PT REHAB [facility] FOR INPTREHAB, OR [facility]BE [facility]. HE STATES THE HOME ENVIRONMENT IS SAFE. DCP- Discharge Planning Updated by [id number]: Kellyerasmo Faye on 07/09/18 4:[address] M SPOKE WITH THE PATIENT AT HER REQUEST. SHE STATES DR BAXTER HAS ARRANGED HOME HEALTH SERVICES FOR HER. CM ADVISED APS WAS GOING TO ASSIST GETTING HER SAFE, RELIABLE CARE. NO VISIT BY APS TO PATIENTS BEDSIDE. DCP- Discharge Planning Updated by [id number]: Nasrin Layne on 07/09/18 2:[address] CM received call from Daniel Mckeon with APS about patient. CM reported to Daniel that CM had attempted to reach family several times without returned calls regarding discharge planning. That family told CM that they were working with [facility] on making financial arrangements for placement, but [facility] states that no family has ever come to the facility to make arrangements. CM faxed records as requested to Daniel at [phone] (cell [phone]) DCP- Discharge Planning Updated by [id number]: Nasrin Layne on 07/06/18 1:[address] CM called APS and reported that patient family is not returning calls or assisting with placement arrangements. Case #[id number]. DCP- Discharge Planning Updated by [id number]: Nasrin Layne on 07/05/18 10:[address] CM attempting to reach patient's family regarding placement. CM called patient's granddaughter, Ricardo Aguilar at [phone], who was supposed to call CM on 06/29/18 about status of placement. CM left message on voice mail to return call. CM called patient's sister, Robina Paige at [phone], attempting to reach Ricardo. Left message for Robina to return my call. CM will continue to follow and assist with discharge planning. If CM does not get a return call from family today, CM will call APS. DCP- Discharge Planning Updated by [id number]: Nasrinerasmo Layne on 07/02/18 10:[address] CM called [facility] to check status of family making financial arrangements for placement. CM spoke with Nicolas who informed CM that no one from the family has been there to make financial arrangements. CM called patient's granddaughter, Ricardo Aguilar at [phone], who was supposed to call CM on 06/29/18 about status of placement. CM left message on voice mail to return call. CM called patient's sister, Robina Paige at [phone], attempting to reach Ricardo. Left message for Robina to return my call. DCP- Discharge Planning Updated by [id number]: Mary Scruggs on 06/28/18 7:[address] Patient Name: MATHEW EMANUEL Admission Status: ER Accout number: [id number] Admission Date: 06-17-2018 : 1935 Admission Diagnosis:HISTORY OF FALLING Attending: RUBY KAPOOR Current LOS: 11 Anticipated DC Date: 06-21-2018 Planned Disposition: Usp Facility Primary Insurance: MEDICARE A & B Discharge Planning Comments: CM WAS CALLED TO PATIENTS ROOM AND THE GRANDDAUGHTER (RICARDO) STATED SHE WAS FORFIETING THE CD TO PAY A LOAN AND THAT WOULD PROBABLY HELP HER GRANDMOTHER BE ACCEPTED TO [facility]. RICARDO STATED SHE IS GOING TO [facility] TOMORROW AND WILL NOTIFY KATY THE CMM OPERATOR TOMORROW REGARDING THIS SITUATION. Traffic Reporter: Mary Scruggs DCP- Discharge Planning Updated by [id number]: Tom Clark on 06/27/18 4:[address] Patient Name: MATHEW EMANUEL Encounter No: [id number] : 1935 Primary Insurance: MEDICARE A & B Anticipated DC Date: 06-21-2018 Planned Disposition: Usp Facility External Planned Provider: [facility], [facility] MEDICAID BED DCP follow-up note: CM REVIEWED CHART WHICH INDICATES PT CANNOT HAVE HALFWAY REHAB DUE TO BEING OUT OF HALFWAY DAYS AND DID NOT HAVE 60 WELL DAYS TO OBTAIN MORE HALFWAY DAYS. CM SPOKE TO PT IN ROOM WHO REPORTS THAT SHE WILL DO WHATEVER RICARDO, HER GRANDDAUGHTER, THINKS IS BEST. PT REPORTS THAT RICARDO IS TRYING TO GET HER BACK TO THE [facility]. CM CALLED RICARDO AGUILAR, , WHO INFORMED CM THAT SHE WAS NOT INFORMED THAT PT IS OUT OF SKILLED DAYS AND ASKED FOR OPTIONS. CM EXPLAINED THAT PT WILL NEED TO EITHER PAY FOR ALF CARE OR BE QUALIFIED OF MEDICAID FOR ALF CARE. RICARDO ASKED CM TO CHECK WITH [facility] FOR [facility]ARE AVAILABILITY AND RICARDO WILL TRY TO DEAL WITH PT'S CERTIFICATE OF DEPOSIT AT THE BANK THAT IS "TIED" TO A LOAN FOR A FAMILY MEMBER. CM CALLED [facility], SPOKE TO NICOLAS WHO INFORMED CM THAT THEY HAVE TRIED TO GET PT QUALIFIED FOR MEDICAID AND THAT PT'S FINANCIAL SITUATION WITH FAMILY IS COMPLICATED AND PT DOES NOT QUALIFY FOR MEDICAID AND PT IS NOT ABLE TO PAY PRIVATE PAY RATES HERSELF FOR [facility] DR[facility] C[facility]. CM CALLED [facility], SPOKE TO BECKY, ASKED ABOUT ALF CARE BEDS. BECKY ASKED ABOUT FINANCIAL ASSETS FOR POSSIBLE MEDICAID. CM EXPLAINED THAT CM WAS ADVISED BY ANOTHER [facility] THAT PT DID NOT QUALIFY FOR MEDICAID. BECKY REPORTS BEDS AVAILABLE BUT THAT PT WILL NEED TO PAY UPFRONT PRIVATELY FOR ALF CARE. CM CALLED AND SPOKE TO GRANDDAUGHTER, RICARDO AGUILAR, ; ADVISED OF ABOVE INFORMATION. RICARDO WILL TALK TO [facility] IN THE MORNING, 06-28-18, AND TRY TO DEAL WITH THE CERTIFICATE OF DEPOSIT AND SEE IF SHE CAN GET PT TO QUALIFY FOR MEDICAID. CM LEFT CM CONTACT INFORMATION WITH RICARDO AND ASKED HER TO CALL CM WITH UPDATE TOMORROW. CM TO CONTINUE TO FOLLOW AND ASSIST WITH PLACEMENT FOR ALF CARE. Tom Clark, CASE MANAGEMENT DCP- Discharge Planning Updated by [id number]: Arabella Jo on 06/22/18 5:[address] CM spoke with patient she agrees that she can't return to her home alone. She states she is to weak. CM attempted to contact Grand-daughter Ricardo several times today to discuss Long -term jail care. CM could not get in touch with her. Voicemail is full. CM will continue to follow and assist with discharge planning / needs. DCP- Discharge Planning Updated by [id number]: Nasrin Layne on 06/21/18 3:[address] CM received call back from Nicolas at [facility] stating they have declined patient for SNF. Nicolas states patient is out of SNF days. States she only had 59 wellness days since last SNF. They [facility]. CM will follow up with patient / family in the morning regarding discharge planning. DCP- Discharge Planning Updated by [id number]: Nasrin Layne on 06/21/18 2:[address] CM called and spoke with Nicolas at [facility] about SNF referral. Faxed records as requested. Awaiting determination of acceptance. DCP- Discharge Planning Updated by [id number]: Mary Scruggs on 06/20/18 4:[address] Patient Name: MATHEW EMANUEL Admission Status: ER Accout number: [id number] Admission Date: 06-17-2018 : 1935 Admission Diagnosis: Attending: RUBY KAPOOR Current LOS: 3 Anticipated DC Date: 06-21-2018 Planned Disposition: [facility]sp Facility Primary Insurance: MEDICARE A & B Discharge Planning Comments: CM MET WITH PATIENT AND SHE STATED TO CALL HER GRANDDAUGHTER (RICARDO) TO DISCUSS HER DISCHARGE NEEDS AND PLANS. PATIENT LIVES ALONE AND HAS 1 STEP TO ENTER HOME. PATIENTS PCP IS DR. BAXTER AND USES [facility]. PATIENTS GRANDDAUGHTER STATED SHE HAD BEEN IN [facility] IN THE PAST AND WOULD LIKE FOR PATIENT TO GO THERE AT DISCHARGE. PATIENT IS CURRENT WITH [facility] PER GRANDDAUGHTER. PATIENT HAS A WHEELCHAIR, WALKER, AND SHOWER CHAIR AT HOME. PATIENT AGREED TO [facility] AND VERBAL AZEEM WAS BY GRANDDAUGHTER (RICARDO). CM WILL FAX INFO IN THE AM TO [facility]. CM WILL CONTINUE TO FOLLOW PATIENT WITH D/C NEEDS AND PLANS. PCP [facility] RICARDO (GRANDDAUGHTER) [phone] Traffic Reporter: Mary Scruggs DCP- Discharge Planning Updated by [id number]: Kelly Faye on 06/18/18 6:[address] CM REVISITED THIS AM. THE PATIENT IS MORE AWAKE BUT VERY SHORT OF BREATH. SHE STATES SHE HAS BEEN TO A REHAB PREVIOUSLY [place] ??? . SHE COULD NOT REMEBER. PERHAPS [facility]. SHE WILL CONSIDER SKILLED STAY AGAIN. SHE GAVE PERMISSION TO SPEAK WITH HER SISTER ,GURU. SHE STATES GURU IS A TWIN. THE TWIN SISTERS LIVE TOGETHER BUT SHE LIVES ALONE. GURU'S ADDRESS IS LISTED THE SAME THE PATIENT. PREVIOUSLY STATED A VM MESSAGE WAS LEFT. CM AWAITING CB. DCP- Discharge Planning Updated by [id number]: Kelly Faye on 06/18/18 5:[address] PATIENT CANNOT PARTICIPATE IN DISCHARGE PLANNING. OT ATTEMPTED TO TREAT TODAY WITHOUT SUCCESS SHE WAS TOO LETHARGIC. PATIENT HAD AMBULATED 130 FT W/ 30% ASSIST. SHE IS BARELY RESPONDING AT THIS TIME. ?? REPEAT CAT OF THE HEAD ?? TC TO GURU PAIGE THE SISTER TO THE PATIENT TO DISCUSS DISCHARGE. PATIENT NOTED TO LIVE IN THE [facility]. CM TO FOLLOW UP IN THE AM. DCPIA - Discharge Planning Initial Assessment Updated by [id number]: Mary Scruggs on 06/20/18 5:33 pm * Is the patient Alert and Oriented? Yes * How many steps to enter\\exit or inside your home? * PCP DR. BAXTER * Pharmacy [facility] * Preadmission Environment Home Alone * ADLs Partial Dependent * Partial ADLs (Assistance needed) Bathing Dressing Eating Medication Management * Equipment Shower Chair Walker Wheelchair * List name and contact numbers for known caregivers / representatives who currently or will assist patient after discharge: RICARDO (GRANDDAUGHTER) [phone] * Verbal permission to speak to the caregivers and representatives has been obtained from the patient. Yes * Community resources currently utilized Home Health * Please name any agencies selected above. [facility] CURRENT * Additional services required to return to the preadmission environment? Yes * Can the patient safely return to the preadmission environment? No * Has this patient been hospitalized within the prior 30 days at any hospital? No Coverage Notice Reviewer: [id number] - Mary Scruggs Notice Issued Date-Time: 06/20/2018 16:45 Notice Type: IM Discharge Notice Notice Delivered To: Family Member Relationship to Patient: Granddaughter Patient Financial Advocate Name: RICARDO AGUILAR Delivery Method: PHONE - Phone Gabrielle Days: Prior Verbal Notification: Recipient Understood Notice: Yes Recipient Signature: Med Rec Note Co-signed by Attending: Coverage Notice Comment: Reviewer: [id number] - Tom Clark Notice Issued Date-Time: 06/27/2018 16:30 Notice Type: Patient Choice Letter Notice Delivered To: Family Member Relationship to Patient: Granddaughter Patient Financial Advocate Name: RICARDO AGUILAR Delivery Method: HAND - Hand Delivered Gabrielle Days: Prior Verbal Notification: Recipient Understood Notice: Yes Recipient Signature: Yes Med Rec Note Co-signed by Attending: Coverage Notice Comment: 1- [facility], [facility] Reviewer: [id number] Salena Kumar Notice Issued Date-Time: 07/13/2018 8:51 Notice Type: IM Discharge Notice Notice Delivered To: Patient Relationship to Patient: Self Patient Financial Advocate Name: Delivery Method: HAND - Hand Delivered Gabrielle Days: Prior Verbal Notification: Recipient Understood Notice: Yes Recipient Signature: Yes Med Rec Note Co-signed by Attending: Coverage Notice Comment: Last DP export: 07/13/18 8:05 a Patient Name: MATHEW EMANUEL Page [id number] at 1031 All edits/amendments must be made on the electronic document DICTATION DATE: 07/16/18 1030 GUIDE TRAVEL: JABIER 07/16/18 1030 RPT#: [id number] DC DATE:07/13/18 STATUS: DIS IN [facility] [address] [place] [address] END OF REPORT
== END 2018-07-13 16:34 | DRG 884 ==
LOC: D.ER 10:25 → D.EDHOLD 13:25 → D.M3 13:25 → D.EDHOLD 13:25 → OBSVTIME 13:25 → D.M2 13:43 → D.EDHOLD 13:44 → D.M3 15:29
PROVIDERS: Family Medicine; Internal Medicine Nephrology; ADMIT Family Medicine Adult Medicine
DX: R54 Age-related physical debility (principal); W19.XXXA Unspecified fall, initial encounter; Z91.81 History of falling; D64.9 Anemia, unspecified; J44.9 Chronic obstructive pulmonary disease, unspecified; I10 Essential (primary) hypertension

== ENCOUNTER 2018-07-13 15:24 | Inpatient (IN) | payer MEDICARE, OTHER ==
[~2018-07-13] VITALS: Ht 160 cm; Wt 58.1 kg
[~2018-07-13 15:24] MED LIST changes: +PROTONIX40 MG PO; +Saline Mist NASAL SP NASAL; +ZOFRAN4 MG PO
[2018-07-13 17:07] VITALS: BP 120/52; BMI 22.7
--- NOTE | 2018-07-13 20:00 | NUR ---
PT IS RESTING IN BED WITH EYES OPEN. ALERT AND ORIENTED X 3. DENIES ANY PAIN OR DISCOMFORT. PT IS PLEASANT AND COOPERATIVE. PT STATES: "THEY SAID I NEEDED TO GET A LITTLE BIT STRONGER BEFORE I COULD GO HOME WITH SOMEONE." ASSISTED TO THE BATHROOM WITH CGA. VOIDED WITHOUT DIFFICULTY. GAIT IS SOMEWHAT UNSTEADY, BUT PT DOES WELL. SR'S ARE UP X 3 WHILE IN BED. CALL LIGHT AND BEDSIDE TABLE ARE WITHIN EASY REACH.
[2018-07-13 20:32] VITALS: BP 119/72
--- NOTE | 2018-07-13 23:37 | NUR ---
PT IS RESTING IN BED WITH EYES OPEN. NO NEEDS VOICED.
--- NOTE | 2018-07-14 01:45 | NUR ---
PT ASSISTED TO THE BATHROOM WITH CGA. NO FURTHER NEEDS VOICED.
--- NOTE | 2018-07-14 04:50 | NUR ---
PT ASSISTED TO THE BATHROOM WITH CGA.
--- NOTE | 2018-07-14 05:56 | NUR ---
PT ASLEEP NO NEEDS NOTED FLUIDS AND CALL LIGHT WITHIN REACH
[2018-07-14 06:47] LABS: BASOPHILS 0.6 % (0-2); EOSINOPHILS 0.8 % (0-7); HEMATOCRIT 38.4 % (36.0-48.0); HEMOGLOBIN 12.5 g/dL (12-16); IMMATURE GRANULOCYTES 0.5 % (0-5); MCH 30.7 pg (26.0-34.0); MCHC 32.6 g/dL (31.0-37.0); MCV 94.3 fL (80.0-100.0); MEAN PLATELET VOLUME 9.3 fL (7.4-10.4); MONOCYTES 7.6 % (2-11); NEUTROPHILS 58.5 % (40-80); PLATELET COUNT 322 10x3/uL (130-400); RBC 4.07 10x6/uL (4.00-5.40); RDW 14.2 % (11.5-14.5)
[2018-07-14 06:49] LABS: WBC 7.9 10x3/uL (4.8-10.8)
[2018-07-14 07:21] LABS: ANION GAP 20.2 mmol/L (8-16); CALCIUM 9.3 mg/dL (8.5-10.1); CARBON DIOXIDE 19.9 mmol/L (21.0-32.0); CREATININE - SERUM 0.9 mg/dL (0.6-1.3); POTASSIUM - SERUM 4.1 mmol/L (3.5-5.1)
--- NOTE | 2018-07-14 08:00 | NUR ---
SHIFT ASSMT COMPLETED.DENIES NEEDS.SITTING UP IN CHAIR.CL IN REACH.BREAKFAST GIVEN.
[2018-07-14 08:07] VITALS: BP 102/45
[2018-07-14 10:14] VITALS: Ht 160 cm; Wt 58.1 kg
--- NOTE | 2018-07-14 11:20 | NUR ---
C/O NECK HURTING.ASKED IF SHE WOULD LIKE TO LAT DOWN AND STATED YES.CL IN REACH.
--- NOTE | 2018-07-14 14:00 | NUR ---
AWAKENED AND ASKED IF SHE WAS GOING TO EAT AND SHE STATED SHE HAD NOT SLEPT IN 4 DAYS AND WANTED TO CONTINUE TO SLEEP AND NOT EAT RIGHT NOW.
--- NOTE | 2018-07-14 17:06 | NUR ---
UP OOB TO WC FOR SUPPER.
--- NOTE | 2018-07-14 20:00 | NUR ---
PT IS SITTING IN WC IN HER ROOM WATCHING TV. ALERT AND ORIENTED X 3. DENIES ANY NEEDS AT THIS TIME, BUT EXPRESSES A WISH TO GO HOME [facility]. DR FORBES HERE TO SEE PT. CALL LIGHT AND BEDSIDE TABLE ARE WITHIN EASY REACH.
[2018-07-14 22:21] VITALS: BP 104/33
--- NOTE | 2018-07-14 22:41 | NUR ---
PT IS RESTING QUIETLY IN BED WITH EYES CLOSED. RESPS ARE EVEN AND UNLABORED. NO ACUTE DISTRESS NOTED.
--- NOTE | 2018-07-15 01:06 | NUR ---
PT ASSISTED TO THE BATHROOM WITH CGA. NO FURTHER NEEDS VOICED.
--- NOTE | 2018-07-15 03:00 | NUR ---
PT RESTING QUIETLY IN BED WITH EYES CLOSED.
[2018-07-15 08:00] VITALS: BP 114/48
--- NOTE | 2018-07-15 08:00 | NUR ---
ALERT,UP OOB TO BATHROOM AND NOW SITTING UP IN WC FOR BREAKFAST.DENIES NEEDS.
--- NOTE | 2018-07-15 12:00 | NUR ---
EATING LUNCH IN WC.CL IN REACH.
--- NOTE | 2018-07-15 16:00 | NUR ---
SISTER VISITING.RESTING QUIETLY.
[2018-07-15 19:22] VITALS: BP 112/38
--- NOTE | 2018-07-15 19:45 | NUR ---
PATIENT IS SLEEPING. VITAL SIGNS ARE STABLE. BED IS DOWN LOW WITH SIDE RAILS UP X2. BED ALARM ACTIVATED AND CALL LIGHT IN REACH.
[2018-07-15 20:30] VITALS: BP 135/48
--- NOTE | 2018-07-15 20:30 | NUR ---
PATIENT IS RESTING IN HER BED. SHE DENIES ANY NEEDS. BED IS DOWN LOW WITH SIDE RAILS UP X2. BED ALARM ACTIVATED AND CALL LIGHT IN REACH.
--- NOTE | 2018-07-16 00:06 | NUR ---
PATIENT IS SLEEPING. BED IS DOWN LOW WITH SIDE RAILS UP X2. BED ALARM ACTIVATED AND CALL LIGHT IN REACH.
--- NOTE | 2018-07-16 04:03 | NUR ---
PATIENT IS SLEEPING. BED IS DOWN LOW WITH SIDE RAILS UP X2. BED ALARM ACTIVATED AND CALL LIGHT IN REACH.
--- NOTE | 2018-07-16 07:20 | NUR ---
PT LYING IN BED. CL IN REACH. EYE CLOSED. RESP EVEN AND UNLABORED. BED IN LOW POSITION. SIDE RAILS X2. BED ALARM ON. NO SIGNS OF DISTRESS OR PAIN. WILL CONTINUE TO MONITOR.
[2018-07-16 07:31] LABS: BASOPHILS 0.7 % (0-2); EOSINOPHILS 1.2 % (0-7); HEMATOCRIT 33.1 % (36.0-48.0); HEMOGLOBIN 10.6 g/dL (12-16); IMMATURE GRANULOCYTES 0.5 % (0-5); MCH 30.2 pg (26.0-34.0); MCV 94.3 fL (80.0-100.0); MONOCYTES 8.8 % (2-11); NEUTROPHILS 56.8 % (40-80); PLATELET COUNT 284 10x3/uL (130-400); RBC 3.51 10x6/uL (4.00-5.40); RDW 14.1 % (11.5-14.5)
--- NOTE | 2018-07-16 07:45 | NUR ---
RESTING IN BED. NO DISTRESS. NO CHANGE IN ASSESSMENT.
[2018-07-16 07:48] LABS: ANION GAP 12.5 mmol/L (8-16); CALCIUM 8.4 mg/dL (8.5-10.1); CARBON DIOXIDE 25.4 mmol/L (21.0-32.0); CREATININE - SERUM 0.9 mg/dL (0.6-1.3); POTASSIUM - SERUM 3.9 mmol/L (3.5-5.1)
[2018-07-16 07:55] LABS: WBC 5.8 10x3/uL (4.8-10.8)
[2018-07-16 08:14] VITALS: BP 136/62
--- NOTE | 2018-07-16 12:41 | NUR ---
PT SITTING UP IN BED. CL IN REACH. PT DENIES NEEDS OR PAIN. BED IN LOW POSITION. SIDE RAILS X2. WCTM
--- NOTE | 2018-07-16 16:34 | NUR ---
PT LYING IN BED TALKING ON CELL PHONE. CL IN REACH. PT DENIES NEEDS OR PAIN. BED ALARM ON. WCTM. BED IN LOW POSITION. SIDE RAILS X2.
--- NOTE | 2018-07-16 17:47 | NUR ---
PT LYING IN BED. CL IN REACH. PT EATING DINNER. WILL CONTINUE TO MONITOR. DENIES NEEDS AT THIS TIME
[2018-07-16 19:00] VITALS: BP 164/107
--- NOTE | 2018-07-16 19:03 | NUR ---
PATIENT IS RESTING IN HER BED. BED IS DOWN LOW. SIDE RAILS UP X2. BED ALARM ACTIVATED AND CALL LIGHT IN REACH.
--- NOTE | 2018-07-16 20:20 | NUR ---
PATIENT IS RESTING IN HER BED. HER VITAL SIGNS ARE STABLE. BED IS DOWN LOW WITH SIDE RAILS UP X2. BED ALARM ACTIVATED AND CALL LIGHT IN REACH.
--- NOTE | 2018-07-17 00:09 | NUR ---
PATIENT IS SLEEPING. BED IS DOWN LOW. BED ALARM ACTIVATED. CALL LIGHT IN REACH.
--- NOTE | 2018-07-17 04:11 | NUR ---
PATIENT IS SLEEPING. BED IS DOWN LOW. BED ALARM ACTIVATED. CALL LIGHT IN REACH.
--- NOTE | 2018-07-17 07:25 | NUR ---
PT LYING IN BED. CL IN REACH. NO SIGNS OF DISTRESS OR PAIN. BED IN LOW POSITION. SIDE RAILS X2. RESP EVEN AND UNLABORED. BREAKFAST AT BEDSIDE. WCTM
[2018-07-17 07:33] VITALS: BP 117/48
--- NOTE | 2018-07-17 11:05 | NUR ---
PT SITTING UP IN WHEELCHAIR. CL IN REACH. PT DENIES NEEDS OR PAIN.
--- NOTE | 2018-07-17 14:08 | NUR ---
Nutrition Follow Up: Pt stated that her appetite is improving and she is eating as much as she is able. Pt said that she likes Ensure and is drinking this. Diet: Regular Pureed; Ensure TID PO Intake: 24% meal avg BM: 07/17/18 Labs reviewed Meds noted including MV, Megace, Zofran Rec continue regular diet with FILM RECORDIST recs for consistencies. Will continue Ensure TID. Rec continue Megace. RD following.
--- NOTE | 2018-07-17 14:45 | NUR ---
PT LYING IN BED. CL IN REACH. PT DENIES NEEDS OR PAIN. WCTM
--- NOTE | 2018-07-17 18:14 | NUR ---
PT SITTING UP IN BED. CL IN REACH. PT DENIES NEEDS OR PAIN. WCTM
--- NOTE | 2018-07-17 19:40 | NUR ---
PATIENT RECEIVED SITTING UP IN BED. PATIENT ASSESSMENT & VITAL SIGNS. PATIENT ASSIST TO BATHROOM. PATIENT HAD VOID & BM. PATIENT ABLE TO USE HER CALL LIGHT WITHIN REACH. BED LOW. ALARM ON. WILL CONTINUE TO MONITOR.
[2018-07-17 20:02] VITALS: BP 120/49
--- NOTE | 2018-07-18 00:06 | NUR ---
PT ASLEEP NO NEEDS NOTED FLUIDS AND CALL LIGHT WITHIN REACH
--- NOTE | 2018-07-18 01:27 | NUR ---
PATIENT EYES CLOSED. RESPIRATIONS 18 & EVEN. PATIENT BED LOW. ALARM ON. CALL LIGHT WITHIN REACH. WILL CONTINUE TO MONITOR.
--- NOTE | 2018-07-18 04:34 | NUR ---
PATIENT STANDBY ASSIST TO BATHROOM. PATIENT HAD VOID & CLEANED PERIAREA. PATIENT WASHED HER HANDS & RETURNED TO BED. BED LOW. ALARM ON. CALL LIGHT WITHIN REACH. WILL CONTINUE TO MONITOR.
[2018-07-18 06:41] LABS: BASOPHILS 0.5 % (0-2); EOSINOPHILS 1.1 % (0-7); HEMATOCRIT 32.5 % (36.0-48.0); HEMOGLOBIN 10.4 g/dL (12-16); IMMATURE GRANULOCYTES 0.2 % (0-5); LYMPHOCYTES 37.1 % (15-50); MCV 93.7 fL (80.0-100.0); MEAN PLATELET VOLUME 9.1 fL (7.4-10.4); MONOCYTES 7.3 % (2-11); NEUTROPHILS 53.8 % (40-80); PLATELET COUNT 286 10x3/uL (130-400); RBC 3.47 10x6/uL (4.00-5.40); RDW 14.5 % (11.5-14.5); WBC 5.6 10x3/uL (4.8-10.8)
[2018-07-18 06:54] LABS: ANION GAP 12.8 mmol/L (8-16); CALCIUM 8.6 mg/dL (8.5-10.1); CARBON DIOXIDE 23.3 mmol/L (21.0-32.0); CREATININE - SERUM 0.8 mg/dL (0.6-1.3); POTASSIUM - SERUM 4.1 mmol/L (3.5-5.1)
[2018-07-18 08:00] VITALS: BP 110/44
--- NOTE | 2018-07-18 08:00 | NUR ---
SHIFT ASSMT COMPLETED.DENIES NEEDS.UP OOB TO BATHROOM AND RETURNED TO .BREAKFAST GIVEN.CL IN REACH.
--- NOTE | 2018-07-18 12:00 | NUR ---
SITTING UP FOR LUNCH.CL IN REACH.
--- NOTE | 2018-07-18 16:23 | NUR ---
PATIENT ADMITTED TO REHAB FROM ACUTE FLOOR. AT THIS TIME DISCHARGE PLANS ARE FOR PATIENT TO RETURN HOME. WILL CONTINUE TO FOLLOW WITH PATIENT AND WILL ASSIST WITH NEEDS.
--- NOTE | 2018-07-18 16:40 | RHP ---
PATIENT: MATHEW EMANUEL MEDICAL RECORD: [id number] ACCOUNT: [id number] LOCATION:[id number] : 39 ADMISSION DATE: 07/13/18 REHABILITATION HISTORY AND PHYSICAL EXAMINATION POST ADMISSION PHYSICIAN EXAMINATION DATE OF ADMISSION: 07/13/2018 ADMITTING DIAGNOSIS: Disuse myopathy. 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 She has apparently had been having some falls at home and difficulty doing ADLs. She had an extended stay in acute hospital with APS involvement trying to get her placed in a safe area upon discharge. Her acute confusion been clearing and she has been progressing well with therapy. She has been on telemetry. She has got debility, proximal muscle weakness, difficulty rising from bed to chair. She is a high fall risk with loss of balance and ambulation. She is requiring monitoring intake and output at this time. She has also been seen and diagnosed with oropharyngeal dysphagia with poor p.o. intake and hypoalbuminemia and has self-care deficit. These are all barriers to her discharge home. She lives at home alone, was moderately independent with her mobility with use of rolling walker and was independent and moderately independent with her ADLs with use of assistance with bathing. Currently set up for mod assist with her ADLs, mod assist to max assist with mobility. She and her along with adult protective services feel that her inpatient rehab stay will help regain her strength and that she should be able to return home at her prior level of functioning or better at this time. COMORBIDITIES: In this patient include oropharyngeal dysphagia, recent falls, normocytic anemia, hypertension, COPD, acute disuse myopathy, anxiety, and history of pulmonary embolism. PAST MEDICAL HISTORY: Significant for hypoglycemia, hypertension, murmur, COPD, shortness of breath, arthritis, chronic neck pain. She got a history of shingles. PAST SURGICAL HISTORY: Includes hysterectomy, right breast surgery, and Infusaport placed. ALLERGIES: No known drug allergies. CURRENT MEDICATIONS: Include hydrocodone she takes 10/325 one tab q. 4-6 hours as needed for pain. She is on a multivitamin daily, Megace 40 mg daily, Zofran ODT 4 mg q. 4 hours p.r.n. nausea and vomiting. She is on polyethylene glycol 17 grams in 8 ounces of water daily. HABITS: No current alcohol or tobacco use. FAMILY HISTORY: Noncontributory. SOCIAL HISTORY: As above. Hopefully will get back home. Adult protective services will be looking on her after discharge. REVIEW OF SYSTEMS: HISTORY AND PHYSICAL [id number] MATHEW EMANUEL GENERAL: Does complain of weakness and fatigue. HEENT: Denies cold, cough, or congestion. CARDIOVASCULAR: Denies chest pain. PHYSICAL EXAMINATION: VITAL SIGNS: Stable, afebrile. GENERAL: An elderly female, in no acute distress upon exam. HEENT: Normocephalic and atraumatic. Mucosa moist. NECK: Supple. No lymphadenopathy. LUNGS: Clear in upper curtis. HEART: Regular rhythm. She does have a holosystolic murmur. ABDOMEN: Benign. EXTREMITIES: No clubbing, cyanosis or edema. NEUROLOGIC: She seems mostly intact. LABORATORY DATA: Her white count 7.9, H&H 12 and 38 and platelet count was noted to be 322. Sodium 138, potassium 4.1, BUN and creatinine of 28 and 0.9, blood sugar is noted to be 92. ASSESSMENT: This is an 82-year-old female patient admitted to rehab with a working diagnosis of disuse myopathy. The patient has potential to make improvement. We instituted the following multidisciplinary therapies but not limited to physical, occupational, respiratory, speech, nutritional services, prosthetics, and orthotics. Given her complex medical condition and risk for more complications, rehabilitation services cannot be provided at a low level of care such as a skilled nurse facility. PLAN: 1. Admit to [facility] for intensive inpatient therapy to include the following disciplines: A. Physical therapy to improve gait, all transfer skills, and bed mobility to a modified independent level. B. Occupational therapy to improve activities of daily living to a modified independent level. C. Case management to assist with discharge planning and placement options. D. Nutrition to assist with nutritional needs. E. Rehabilitation nursing to assist in monitoring the patient's underlying medical conditions and to assist with any type of bowel or bladder management. 2. The patient's current medications and medical care will be continued. 3. The patient will be placed on standard fall precautions. 4. The patient's estimated length of stay is approximately 7-10 days. 5. Discuss this patient during care team staff meeting this week. We will keep APS informed of her status. TRANSINT:[id number] Voice Confirmation ID: [id number] DOCUMENT ID: [id number] TARIQ notes whether there has been none or any medical/functional change since admission: - No change since preadmission screen. HISTORY AND PHYSICAL [id number] MATHEW EMANUEL attests patient continues to be appropriate for IRF: - Continues to be appropriate. JÚNIOR FORBES MD at 1640 CC: [id number] DICTATION DATE: 07/14/181855 TEAM ASSISTANT: 07/14/182207 ADM IN [facility] [address] [place] [address]
--- NOTE | 2018-07-18 19:05 | NUR ---
PATIENT IS RESTING IN HER BED. BED IS DOWN LOW WITH SIDE RAILS UP X2. CALL LIGHT IS IN REACH. BED ALARM IS ACTIVATED.
--- NOTE | 2018-07-18 21:11 | NUR ---
PATIENT IS RESTING IN HER BED. VITAL SIGNS ARE STABLE. MEDICATED WITH TYLENOL FOR C/O BACK PAIN. BED IS DOWN LOW WITH SIDE RAILS UP X2. BED ALARM ACTIVATED AND CALL LIGHT IN REACH.
--- NOTE | 2018-07-19 00:17 | NUR ---
PATIENT IS SLEEPING. BED IS DOWN LOW WITH SIDE RAILS UP X2. BED ALARM ACTIVATED. CALL LIGHT IS IN REACH.
[2018-07-19 01:19] VITALS: BP 117/53
--- NOTE | 2018-07-19 04:08 | NUR ---
PATIENT IS SLEEPING. BED IS DOWN LOW WITH SIDE RAILS UP X2 AND CALL LIGHT IN REACH.
[2018-07-19 08:00] VITALS: BP 129/49
--- NOTE | 2018-07-19 08:00 | NUR ---
SHIFT ASSMT COMPETED.
--- NOTE | 2018-07-19 16:00 | NUR ---
SITTING UP IN CHAIR
[2018-07-19 19:00] VITALS: BP 127/44
--- NOTE | 2018-07-19 19:25 | NUR ---
GREETED PATIENT AND INTRODUCED MYSELF HER NURSE. PATIENT IS LAYING IN BED IN SUPINE POSITION. DENIES ANY PAIN AT THIS TIME OR ANY OTHER NEEDS. CALL LIGHT IN REACH.
--- NOTE | 2018-07-20 02:15 | NUR ---
PATIENT ASLEEP WITH EYES CLOSED LAYING IN SUPINE POSITION. HOB AT 30 DEGREES. RESPIRATIONS EVEN. NO SIGNS OF DISTRESS. CALL LIGHT IN REACH.
--- NOTE | 2018-07-20 03:53 | NUR ---
PATIENT AWAKE AND GIVEN PRN TYLENOL FOR UPPER BACK PAIN. ASSISTED PATIENT TO BATHROOM USING ONE PERSON ASSIST AND BACK TO BED AND REPOSITIONED. CALL LIGHT IN REACH. BED IN LOWEST POSITION.
--- NOTE | 2018-07-20 04:20 | NUR ---
PATIENT ASLEEP WITH EYES CLOSED. RESPIRATIONS EVEN. NO SIGNS OF DISTRESS. CALL LIGHT IN REACH.
[2018-07-20 07:22] LABS: BASOPHILS 0.5 % (0-2); EOSINOPHILS 1.4 % (0-7); HEMATOCRIT 32.1 % (36.0-48.0); HEMOGLOBIN 10.3 g/dL (12-16); IMMATURE GRANULOCYTES 0.2 % (0-5); LYMPHOCYTES 31.2 % (15-50); MCH 30.2 pg (26.0-34.0); MCHC 32.1 g/dL (31.0-37.0); MCV 94.1 fL (80.0-100.0); MEAN PLATELET VOLUME 9.3 fL (7.4-10.4); MONOCYTES 10.1 % (2-11); NEUTROPHILS 56.6 % (40-80); PLATELET COUNT 273 10x3/uL (130-400); RBC 3.41 10x6/uL (4.00-5.40); RDW 14.6 % (11.5-14.5); WBC 6.3 10x3/uL (4.8-10.8)
[2018-07-20 07:31] LABS: ANION GAP 16.2 mmol/L (8-16); CALCIUM 8.5 mg/dL (8.5-10.1); CARBON DIOXIDE 22.7 mmol/L (21.0-32.0); CREATININE - SERUM 0.8 mg/dL (0.6-1.3); POTASSIUM - SERUM 3.9 mmol/L (3.5-5.1)
[2018-07-20 08:00] VITALS: BP 111/40
--- NOTE | 2018-07-20 08:00 | NUR ---
SHIFT ASSMT COMPLETED.
--- NOTE | 2018-07-20 12:00 | NUR ---
SITTING UP EATING.
--- NOTE | 2018-07-20 13:36 | NUR ---
Nutrition Follow Up: Pt stated that her appetite is improving and that she is eating as much as she is able to. RD encouraged pt to continue increasing po intake as able. Diet: Regular Pureed; Ensure TID PO Intake: 37% meal avg - po intake slightly improved BM: 07/19/18 Labs reviewed Meds noted including Megace Rec continue regular diet with EQUIPMENT OPERATING ENGINEER recs for consistencies. Rec continue Megace. Will continue Ensure TID. RD following.
--- NOTE | 2018-07-20 16:00 | NUR ---
IN NTHERAPY.EDGAR WELL.
[2018-07-20 19:20] VITALS: BP 114/78
--- NOTE | 2018-07-20 20:00 | NUR ---
PT IS SITTING IN A WC IN HER ROOM WATCHING TV. ALERT AND ORIENTED X 3. DENIES ANY PAIN OR DISCOMFORT AT THIS TIME. NO NEEDS VOICED. PT IS VERY FRIENDLY AND TALKATIVE. PT IS [place]. CALL LIGHT AND BEDSIDE TABLE ARE WITHIN EASY REACH.
--- NOTE | 2018-07-20 21:15 | NUR ---
PT ASSISTED TO THE BATHROOM WITH RW AND SBA. VOIDED WITHOUT DIFFICULTY. THEN ASSISTED INTO BED. NO FURTHER NEEDS VOICED.
--- NOTE | 2018-07-20 23:57 | NUR ---
PT ASLEEP NO NEEDS NOTED FLUIDS AND CALL LIGHT WITHIN REACH
--- NOTE | 2018-07-21 02:36 | NUR ---
PT ASSISTED TO THE BATHROOM WITH SBA USING RW. NO FURTHER NEEDS VOICED.
--- NOTE | 2018-07-21 06:57 | NUR ---
RESTING QUIETLY IN BED. NO S/S DISTRESS OR NEEDS. CALL LIGHT IN REACH. BED IN LOWEST POSITION.
[2018-07-21 07:44] VITALS: BP 138/62
--- NOTE | 2018-07-21 18:03 | NUR ---
SITTING IN RECLINER IN ROOM. CALL LIGHT IN REACH
[2018-07-21 20:00] VITALS: BP 132/61
--- NOTE | 2018-07-21 21:30 | NUR ---
PT SITTING IN RECLINER IN HER ROOM WATCHING TV. ALERT AND ORIENTED X 3. DENIES ANY PAIN OR DISCOMFORT AT THIS TIME. VSS. PT ASSISTED TO THE BATHROOM WITH SBA USING RW. VOIDED WITHOUT DIFFICULTY. PT THEN ASSISTED INTO BED. AR'S ARE UP X 2 IN BED. CALL LIGHT AND BEDSIDE TABLE ARE WITHIN EASY REACH.
--- NOTE | 2018-07-21 23:56 | NUR ---
ASLEEP NO NEEDS NOTED FLUIDS AND CALL LIGHT WITHIN REACH
--- NOTE | 2018-07-22 05:29 | NUR ---
RESTING IN BED WITH EYES CLOSED.
[2018-07-22 08:04] VITALS: BP 127/56
--- NOTE | 2018-07-22 09:42 | NUR ---
LAYING IN BED RESTING QUIETLY. YELLS OUT TO STAFF EVERY TIME THEY PASS DOOR FOR SOMETHING SHE WANTS IMMEDIATELY. ENCOURAGED PT TO PULL HER OWN COVERS UP, SET HEAD OF BED UP WITH BED FRAME BUTTONS, KEEP UP WITH OWN GLASSES, AND NOT GET UP WITHOUT STAFF IN ROOM. CALL LIGHT IN REACH
[2018-07-22 19:12] VITALS: BP 114/62
--- NOTE | 2018-07-22 19:42 | NUR ---
PT ASLEEP IN BED WITH TV ON NO NEEDS NOTED FLUIDS AND CALL LIGHT WITHIN REACH
--- NOTE | 2018-07-22 21:26 | NUR ---
PT ASSISTED TO THE BATHROOM WITH SBA USING RW. LARGE FORMED BM NOTED.
--- NOTE | 2018-07-23 00:30 | NUR ---
PT ASSISTED TO THE BATHROOM WITH SBA. NO FURTHER NEEDS VOICED.
--- NOTE | 2018-07-23 03:20 | NUR ---
RESTING IN BED WITH EYES CLOSED.
[2018-07-23 06:41] LABS: BASOPHILS 0.4 % (0-2); EOSINOPHILS 1.5 % (0-7); HEMATOCRIT 32.9 % (36.0-48.0); HEMOGLOBIN 10.5 g/dL (12-16); IMMATURE GRANULOCYTES 0.3 % (0-5); LYMPHOCYTES 28.2 % (15-50); MCH 30.1 pg (26.0-34.0); MCHC 31.9 g/dL (31.0-37.0); MCV 94.3 fL (80.0-100.0); MEAN PLATELET VOLUME 9.3 fL (7.4-10.4); MONOCYTES 8.7 % (2-11); NEUTROPHILS 60.9 % (40-80); PLATELET COUNT 279 10x3/uL (130-400); RBC 3.49 10x6/uL (4.00-5.40); RDW 14.6 % (11.5-14.5); WBC 6.8 10x3/uL (4.8-10.8)
[2018-07-23 07:06] LABS: ANION GAP 14.2 mmol/L (8-16); CALCIUM 8.4 mg/dL (8.5-10.1); CARBON DIOXIDE 22.8 mmol/L (21.0-32.0); CREATININE - SERUM 0.8 mg/dL (0.6-1.3)
--- NOTE | 2018-07-23 07:40 | NUR ---
NO CHANGE IN ASSESSMENT. ALERT. NO DISTRESS NOTED. NO C/O PAIN.
[2018-07-23 08:27] VITALS: BP 132/48
--- NOTE | 2018-07-23 10:06 | NUR ---
PARTICIPATING IN THERAPY AT THIS TIME.
--- NOTE | 2018-07-23 12:40 | NUR ---
SITTING UP IN CHAIR EATING LUNCH.
--- NOTE | 2018-07-23 16:40 | NUR ---
RESTING- STATES FEELING BETTER. FAMILY IN ROOM. NO C/O PAIN AT THIS TIME.
[2018-07-23 19:00] VITALS: BP 130/55
--- NOTE | 2018-07-23 19:35 | NUR ---
PT SITTING UP IN WHEELCHAIR. CL IN REACH. PT TALKING ON CELL PHONE. PT DENIES NEEDS OR PAIN. WILL CONTINUE TO MONITOR.
--- NOTE | 2018-07-23 22:05 | NUR ---
PT ASLEEP NO NEEDS NOTED FLUIDS AND CALL LIGHT WITHIN REACH
--- NOTE | 2018-07-23 22:51 | NUR ---
PT RESTING QUIETLY. CL IN REACH. PT DENIES NEEDS OR PAIN. WCTM
--- NOTE | 2018-07-24 01:49 | NUR ---
PT RESTING QUIETLY. CL IN REACH. NO SIGNS OF DISTRESS OR PAIN. WCTM
--- NOTE | 2018-07-24 06:00 | NUR ---
PT LYING IN BED. CL IN REACH. PT DENIES NEEDS OR PAIN. WCTM
--- NOTE | 2018-07-24 07:36 | NUR ---
RESP EVEN AND UNLABORED. NO DISTRESS NOTED. CL IN REACH.
[2018-07-24 08:00] VITALS: BP 119/56
--- NOTE | 2018-07-24 12:10 | NUR ---
SITTING IN CHAIR IN ROOM. NO DISTRESS NOTED. CL IN REACH.
--- NOTE | 2018-07-24 12:52 | NUR ---
Nutrition Follow Up: Pt stated that her appetite has improved. She said that she eats as much as she can at each meal. RD encouraged pt to continue with good po intake and make staff aware of any food preferences. Diet: Regular Pureed; Ensure TID PO Intake: 65% meal avg - po intake greatly improved BM: 07/24/18 Labs reviewed Meds noted including MV, Megace Rec continue regular diet with FITTER AND TURNER recs for consistencies. Rec continue Megace. Will continue Ensure TID. RD following.
--- NOTE | 2018-07-24 14:52 | NUR ---
IN THERAPY AT THIS TIME.NO C/O PAIN.
--- NOTE | 2018-07-24 16:28 | NUR ---
NO CHANGE IN ASSESSEMNT. CL IN REACH.
[2018-07-24 19:00] VITALS: BP 117/53
--- NOTE | 2018-07-24 19:44 | NUR ---
PATIENT RECEIVED SITTING UP IN WHEELCHAIR AT BEDSIDE. VITAL SIGNS & ASSESSMENT DONE. PATIENT HAD NO C/O PAIN OR DISTRESS. PATIENT CALL LIGHT WITHIN REACH. WILL CONTINUE TO MONITOR.
--- NOTE | 2018-07-25 00:25 | NUR ---
RESTING IN BED WITH EYES CLOSED. NO DISTRESS NOTED.
--- NOTE | 2018-07-25 04:17 | NUR ---
PATIENT EYES CLOSED. RESPIRATIONS 18 & EVEN. PATIENT BED LOW. ALARM ON. CALL LIGHT WITHIN REACH. WILL CONTINUE TO MONITOR.
[2018-07-25 07:32] LABS: BASOPHILS 0.3 % (0-2); EOSINOPHILS 1.3 % (0-7); HEMATOCRIT 32.7 % (36.0-48.0); HEMOGLOBIN 10.5 g/dL (12-16); IMMATURE GRANULOCYTES 0.3 % (0-5); LYMPHOCYTES 27.5 % (15-50); MCH 30.1 pg (26.0-34.0); MCHC 32.1 g/dL (31.0-37.0); MCV 93.7 fL (80.0-100.0); MEAN PLATELET VOLUME 9.3 fL (7.4-10.4); MONOCYTES 7.9 % (2-11); NEUTROPHILS 62.7 % (40-80); PLATELET COUNT 265 10x3/uL (130-400); RBC 3.49 10x6/uL (4.00-5.40); RDW 14.7 % (11.5-14.5); WBC 6.2 10x3/uL (4.8-10.8)
[2018-07-25 08:00] VITALS: BP 113/49
[2018-07-25 08:17] LABS: ANION GAP 16.2 mmol/L (8-16); CALCIUM 8.2 mg/dL (8.5-10.1); CARBON DIOXIDE 22.9 mmol/L (21.0-32.0); CREATININE - SERUM 0.8 mg/dL (0.6-1.3); POTASSIUM - SERUM 4.1 mmol/L (3.5-5.1)
--- NOTE | 2018-07-25 17:20 | NUR ---
NO CHANGE IN ASSESSMENT. SITTING UP IN CHAIR. FAMILY AT BS. CL IN REACH.
[2018-07-25 19:00] VITALS: BP 103/39
--- NOTE | 2018-07-25 19:40 | NUR ---
GREETED PATIENT AND INTRODUCED MYSELF HER NURSE. PATIENT IS SITTING IN CHAIR NEXT TO BED AND DENIES ANY NEEDS AT THIS TIME. CALL LIGHT IN REACH.
--- NOTE | 2018-07-25 23:34 | NUR ---
PATIENT ASLEEP WITH EYES CLOSED LAYING ON RIGHT SIDE. RESPIRATIONS EVEN. NO SIGNS OF DISTRESS. CALL LIGHT IN REACH.
--- NOTE | 2018-07-26 03:52 | NUR ---
PATIENT ASLEEP WITH EYES CLOSED LAYING ON RIGHT SIDE. RESPIRATIONS EVEN. NO SIGNS OF DISTRESS. CALL LIGHT IN REACH.
--- NOTE | 2018-07-26 07:29 | NUR ---
PT RESTING QUIETLY. CL IN REACH. NO SIGNS OF DISTRESS OR PAIN. BED IN LOW POSITION. SIDE RAILS X2. RESP EVEN AND UNLABORED. WILL CONTINUE TO MONITOR. BED ALARM ON
[2018-07-26 08:00] VITALS: BP 165/45
[2018-07-26] MEDS ORDERED: NORCO 10-325 TA1 TAB PO (08:17)
--- NOTE | 2018-07-26 09:44 | NUR ---
PATIENT DISCHARGING HOME TODAY WITH FAMILY. [facility] WILL PROVIDE TH[facility]APY AT HOME. NO NEW DME NEEDED AT THIS TIME. DR. BAXTER 07/30/18 @ 12:00. PATIENT CHOICE FORM FOR HOME HEALTH AND [facility] FORMS SINGED AND FILED IN CHART. DISCHARGE INSTRUCTIONS WITH [facility] FAXED TO PCP AND TO HOME HEALTH.
--- NOTE | 2018-07-26 11:00 | NUR ---
PT LYING IN BED. CL IN REACH. PT DENIES NEEDS OR PAIN. NO SIGNS OF DISTRESS.WCTM
--- NOTE | 2018-07-26 14:25 | NUR ---
PT RESTING QUIETLY. CL IN REACH. PT DENIES NEEDS OR PAIN. WCTM
--- NOTE | 2018-07-26 15:26 | NUR ---
IN BED.DENIES NEEDS.PLAN ON DISCHARGE TODAY.
--- NOTE | 2018-07-26 17:38 | NUR ---
PT SITTING UP IN CHAIR. CL IN REACH. WAITING FOR RIDE. DC PAPER WORK COMPLETED AND SIGNED. ARASH
--- NOTE | 2018-07-26 18:00 | NUR ---
PT LEFT UNIT VIA WHEELCHAIR. PT LEFT WITH ALL OF BELONGINGS. GRANDDAUGHTER TOOK PT HOME. PAPERWORK SIGNED.
== END 2018-07-26 18:00 | disposition home health service (06) | DRG 93 ==
LOC: D.REHAB 15:24
PROVIDERS: ADMIT Emergency Medicine
DX: G72.89 Other specified myopathies (principal); R13.12 Dysphagia, oropharyngeal phase; D64.9 Anemia, unspecified; I10 Essential (primary) hypertension; J44.9 Chronic obstructive pulmonary disease, unspecified; F41.9 Anxiety disorder, unspecified; Z86.711 Personal history of pulmonary embolism; Z91.81 History of falling; Z85.3 Personal history of malignant neoplasm of breast

== ENCOUNTER 2020-01-14 08:00 | Outpatient (CLI) | payer MEDICARE, OTHER ==
[2018-07-14 10:14] VITALS: BMI 22.6
[~2020-01-14 08:00] MED LIST changes: +NORCO 10-325 TA1 TAB PO
== END 2020-01-14 13:26 | disposition home or self-care (01) ==
LOC: D.MAMMO 08:00
PROVIDERS: ATTEND Family Medicine
DX: N64.52 Nipple discharge (principal)